=== PATIENT | male | born 1955 | race Caucasian/White ===

== ENCOUNTER 2016-03-03 17:28 | Emergency (ER) | payer OTHER ==
[2016-03-03 17:33] VITALS: BP 154/89; PULSE 90; TEMP 98; BMI 23.1
[2016-03-03] MEDS ORDERED: morphine CARPU-JECT 2 MG/1 ML DISP.SYRIN IM ONE (20:37)
[2016-03-03] MEDS ORDERED: CYCLOBENZAPRINE HCL 10 MG TABLET (FP) PO ONE (20:38)
[2016-03-03] MEDS ORDERED: morphine CARPU-JECT 2 MG/1 ML DISP.SYRIN ONE (20:51)
[2016-03-03] MEDS ORDERED: CYCLOBENZAPRINE HCL 10 MG TABLET (FP) ONE (20:51)
--- NOTE | 2016-03-03 22:29 | PDOC ---
History of Present Illness - General Chief Complaint: Injury Stated Complaint: BACK INJURY Time Seen by Provider: 03/03/16 19:27 History Source: Patient Exam Limitations: No Limitations - History of Present Illness Initial Comments: 03/03/16 22:12 Patient is a 60 year old male with h/o chronic back pain, kidney stones, pancreatic cysts, kidney cysts, seizures, inguinal hernia repair, removal of right inguinal node, complaining of coccyx pain 5 days. Patient states he was going up the steps lost his balance 5 days ago falling and hitting his back on the steps. States he's had 10/10 pain, however last night started having tingling in bilateral great toes. States he has no radiation of pain to his legs. No bladder or bowel incontinence. States he took some oxycodone that he had laying around the house with no relief of symptoms. PMD: Dr. Franco PMHx: As above PFamHx: Noncontributory PSocHx: (+) cig 1/day, neg etoh, neg drugs ALL: Diflucan, amoxicillin GENERAL/CONSTITUTIONAL: [No fever or chills. No weakness. No weight change.] HEAD, EYES, EARS, NOSE AND THROAT: [No change in vision. No ear pain or discharge. No sore throat.] CARDIOVASCULAR: [No chest pain or shortness of breath.] RESPIRATORY: [No cough, wheezing, or hemoptysis.] GASTROINTESTINAL: [No nausea, vomiting, diarrhea or constipation. No rectal bleeding.] GENITOURINARY: (+) kidney pain, No dysuria, frequency, or change in urination.] MUSCULOSKELETAL: (+) joint or muscle swelling or pain. Chronic neck and back pain.] SKIN AND BREASTS: [No rash or easy bruising.] NEUROLOGIC: [No headache, vertigo, loss of consciousness, or loss of sensation.] PSYCHIATRIC: [No depression or anxiety.] ENDOCRINE: [No increased thirst. No abnormal weight change.] HEMATOLOGIC/LYMPHATIC: [No anemia, easy bleeding, or history of blood clots.] ALLERGIC/IMMUNOLOGIC: [No hives or skin allergy. No latex allergy.] GENERAL: [The patient is awake, alert, and fully oriented, in no acute distress. ] HEAD: [Normal with no signs of trauma.] EYES: [Pupils equal, round and reactive to light, extraocular movements intact, sclera anicteric, conjunctiva clear.] ENT: [Ears normal, nares patent, oropharynx clear without exudates. Moist mucous membranes.] NECK: [Normal range of motion, supple without lymphadenopathy, JVD, or masses.] LUNGS: [Breath sounds equal, clear to auscultation bilaterally. No wheezes, and no crackles.] HEART: [Regular rate and rhythm, normal S1 and S2 without murmur, rub.] ABDOMEN: [Soft, nontender, normoactive bowel sounds. No guarding, no rebound. No masses.] BACK: (+) tenderness to the lower Lumbar spine midline and sacrum, EXTREMITIES: [Normal range of motion, no edema. No clubbing or cyanosis. No cords, erythema, or tenderness.] NEUROLOGICAL: [Cranial nerves II through XII grossly intact. Normal speech, anthalgic gait, (+) 5/5 right, 4/5 left (old CVA), Sensory intact] PSYCH: [Normal mood, normal affect.] SKIN: [Warm, Dry, normal turgor, no rashes or lesions noted.] Past History - Past Medical History Allergies/Adverse Reactions: Allergies Allergy/AdvReac Type Severity Reaction Status Date / Time fluconazole [From Diflucan] Allergy Severe anaphylaxis Verified 03/03/16 17:32 amoxicillin [Amoxicillin] Allergy Mild Rash Verified 03/03/16 17:32 Home Medications: Ambulatory Orders Atenolol [Tenormin -] 50 mg PO DAILY 10/14/14 Carisoprodol [Soma -] 350 mg PO PRN PRN 10/14/14 Diphenoxylate 2.5/Atropine.025 [Lomotil -] 1 combo PO TID 10/14/14 Divalproex [Depakote -] 2,000 mg PO BID 10/14/14 Levothyroxine [Synthroid -] 75 mcg PO DAILY 10/14/14 Zolpidem Tartrate [Ambien] 10 mg PO HS 01/02/16 Lacosamide [Vimpat -] 150 mg PO BID #60 tab MDD 300 01/03/16 Anemia: No Asthma: Yes Cancer: No Cardiac Disorders: No CVA: Yes (lt side residual weakness) COPD: Yes CHF: No Dementia: No Diabetes: No GI Disorders: (CYST ON PANCREAS) Disorders: Yes (LEFT KIDNEY CYST, stones) HTN: Yes Hypercholesterolemia: Yes HIV: No Kidney Stones: Yes Liver Disease: No Seizures: Yes Thyroid Disease: Yes (hypothyroidism) - Surgical History Abdominal Surgery: Yes (left inguinal hernia x 2) Appendectomy: No Cardiac Surgery: No Cholecystectomy: No Lung Surgery: No Neurologic Surgery: No Orthopedic Surgery: No - Immunization History Td Vaccination: Yes Immunization Up to Date: (FLU 2012 AND PNA) - Psycho/Social/Smoking Cessation Hx Anxiety: No Suicidal Ideation: No Smoking Status: Yes Smoking History: Current every day smoker Years of Tobacco Use: 30 Have you smoked in the past 12 months: Yes Number of Cigarettes Smoked Daily: 2 Information on smoking cessation initiated: No 'Breaking Loose' booklet given: 09/20/15 Hx Alcohol Use: No Drug/Substance Use Hx: No Substance Use Type: None Hx Substance Use Treatment: No Trauma Specific PMHX - Complaint Specific PMHX Back Injury: Yes Neck Injury: Yes *Physical Exam - Vital Signs Last Vital Signs Temp Pulse Resp BP Pulse Ox 98.0 F 90 20 154/89 100 03/03/16 17:29 03/03/16 17:29 03/03/16 17:29 03/03/16 17:29 03/03/16 17:29 ED Treatment Course - RADIOLOGY Radiology Studies Ordered: Category Date Time Status LUMBAR SPINE CT W/O CONTRAST [CT] Stat CT Scan 03/03/16 20:32 Taken - Medications Given in the ED: ED Medications Discontinued Medications Generic Name Dose Route Start Last Admin Trade Name Freq PRN Reason Stop Dose Admin Cyclobenzaprine HCl 10 mg 03/03/16 20:38 03/03/16 20:55 Flexeril - PO 03/03/16 20:39 10 mg ONCE ONE Administration Morphine Sulfate 2 mg 03/03/16 20:37 03/03/16 20:55 Morphine Injection - IM 03/03/16 20:38 2 mg ONCE ONE Administration Medical Decision Making - Medical Decision Making 03/03/16 22:30 Patient is a 60 year old male with h/o chronic back pain, kidney stones, pancreatic cysts, kidney cysts, seizures, inguinal hernia repair, removal of right inguinal node, complaining of coccyx pain 5 days. Concern for fracture of the lumbar spine will get ct l-spine, Morphine 4mg IM for pain Patient Name: Guillermo Wilks THIS IS A PRELIMINARY REPORT FROM [facility]: 353 EXAM DATE AND TIME: 2016-03-03 21:22:41.0 EXAM: CT LUMBAR SPINE WITHOUT CONTRAST No acute fracture or malalignment. No substantial canal stenosis. Minimal right neural foraminal stenosis L4-L5. Minimal right hydronephrosis. THIS DOCUMENT HAS BEEN ELECTRONICALLY SIGNED Lora Ramesh M.D. 03/03/2016 22:09 MISBAH John Please call [facility] [employer] Professor [phone] ([phone]) with questions. 03/03/16 22:44 I discussed the physical exam findings, ancillary test results and final diagnoses with the patient. I answered all of the patient's questions. The patient was satisfied with the care received and felt comfortable with the discharge plan and treatment plan. The Patient agrees to follow up with the primary care physician within 24-72 hours. *DC/Admit/Observation/Transfer Diagnosis at time of Disposition: Back pain Qualifiers: Back pain location: low back pain Chronicity: acute Back pain laterality: midline Sciatica presence: without sciatica Qualified Code(s): M54.5 - Low back pain - Discharge Dispostion Disposition: HOME Condition at time of disposition: Stable - Patient Instructions Printed Discharge Instructions: DI for Low Back Pain Additional Instructions: Your Discharge Instructions: You must call primary care physician within 24 hours to arrange follow-up. Return to the Emergency Department with any new, persistent or worsening symptoms, for fever, chills, SOB, dizziness or any other concerning changes that may occur. Sit on a doughnut, and continue pain medications as needed.
== END 2016-03-03 23:06 | disposition home or self-care (01) ==
LOC: JER 17:28
PROC: 3E023NZ Introduction of Analgesics, Hypnotics, Sedatives into Muscle, Percutaneous Approach (ICD-10-PCS; principal; 2016-03-03)
DX: M54.5 Low back pain (principal); I10 Essential (primary) hypertension; E78.00 Pure hypercholesterolemia, unspecified; E03.9 Hypothyroidism, unspecified; Z86.69 Personal history of other diseases of the nervous system and sense organs; I69.854 Hemiplegia and hemiparesis following other cerebrovascular disease affecting left non-dominant side; F17.210 Nicotine dependence, cigarettes, uncomplicated; J45.909 Unspecified asthma, uncomplicated; J44.9 Chronic obstructive pulmonary disease, unspecified
CPT/HCPCS: 72131-TC; 96372; 99282-25

== ENCOUNTER 2016-12-06 00:31 | Emergency (ER) | payer OTHER ==
--- NOTE | 2016-12-06 00:44 | PDOC ---
History of Present Illness - General Chief Complaint: Shortness of Breath Stated Complaint: DIFFICULTY BREATHING Time Seen by Provider: 12/06/16 00:43 History Source: Patient Exam Limitations: No Limitations - History of Present Illness Initial Comments: 12/06/16 01:09 61 yo with hx of COPD (stopped smoking 5 mo ago) also has seizure disorder persists with cough that wont go away despite two rounds of amoxicillin from his PMD. NAD, NONTOXIC, NO FEVER or CHILLS Timing/Duration: other (past month) Severity: mild Modifying Factors: improves with: other (nothing makes it worse or better) Associated Symptoms: reports: denies symptoms. denies: chest pain, cough, diaphoresis, fever/chills, headaches, loss of appetite, malaise, nausea/vomiting , rash, seizure, shortness of breath, syncope, weakness, other Past History - Travel Traveled outside of the country in the last 30 days: No Close contact w/someone who was outside of country & ill: No - Past Medical History Allergies/Adverse Reactions: Allergies Allergy/AdvReac Type Severity Reaction Status Date / Time fluconazole [From Diflucan] Allergy Severe anaphylaxis Verified 12/06/16 00:40 amoxicillin [Amoxicillin] Allergy Mild Rash Verified 12/06/16 00:40 Home Medications: Ambulatory Orders Atenolol [Tenormin -] 50 mg PO DAILY 10/14/14 Carisoprodol [Soma -] 350 mg PO PRN PRN 10/14/14 Diphenoxylate 2.5/Atropine.025 [Lomotil -] 1 combo PO TID 10/14/14 Divalproex [Depakote -] 2,000 mg PO BID 10/14/14 Levothyroxine [Synthroid -] 75 mcg PO DAILY 10/14/14 Zolpidem Tartrate [Ambien] 10 mg PO HS 01/02/16 Lacosamide [Vimpat -] 150 mg PO BID #60 tab MDD 300 01/03/16 Levofloxacin [Levaquin] 750 mg PO DAILY #10 tablet 12/06/16 Methylprednisolone [Medrol Dose Scott] 4 mg PO ASDIR #21 tablet 12/06/16 Ondansetron [Zofran Odt -] 4 mg SL TID #21 od.tablet 12/06/16 Promethazine/Phenyleph/Codeine [Promethazine Vc-Codeine Syrup] 10 ml PO QID # 200 syrup MDD 40 12/06/16 Anemia: No Asthma: Yes Cancer: No Cardiac Disorders: No CVA: Yes (lt side residual weakness) COPD: Yes CHF: No Dementia: No Diabetes: No GI Disorders: (CYST ON PANCREAS) Disorders: Yes (LEFT KIDNEY CYST, stones) HTN: Yes Hypercholesterolemia: Yes Kidney Stones: Yes Liver Disease: No Seizures: Yes Thyroid Disease: Yes (hypothyroidism) - Surgical History Abdominal Surgery: Yes (left inguinal hernia x 2) Appendectomy: No Cardiac Surgery: No Cholecystectomy: No Lung Surgery: No Neurologic Surgery: No Orthopedic Surgery: No - Immunization History Td Vaccination: Yes Immunization Up to Date: (FLU 2012 AND PNA) - Suicide/Smoking/Psychosocial Hx Smoking Status: Yes Smoking History: Current every day smoker Years of Tobacco Use: 30 Have you smoked in the past 12 months: Yes Number of Cigarettes Smoked Daily: 2 'Breaking Loose' booklet given: 09/20/15 Hx Alcohol Use: No Drug/Substance Use Hx: No Substance Use Type: None Hx Substance Use Treatment: No Review of Systems - Review of Systems Able to Perform ROS?: Yes Is the patient limited Nepali proficient: No Constitutional: No: Symptoms Reported HEENTM: No: Symptoms Reported Respiratory: Yes: Symptoms reported, See HPI Cardiac (ROS): No: Symptoms Reported ABD/GI: No: Symptoms Reported : No: Symptoms Reported Integumentary: No: Symptoms Reported Neurological: No: Symptoms reported Psychiatric: No: Anxiety, Depression Hematologic/Lymphatic: No: Symptoms Reported All Other Systems: Reviewed and Negative *Physical Exam - Physical Exam General Appearance: No: Apparent Distress HEENT: positive: Normal ENT Inspection, Normal Voice Neck: positive: Supple Respiratory/Chest: positive: Lungs Clear, Normal Breath Sounds, Wheezing, Other (Musical Wheezes upper lungs posteriorly only). negative: Respiratory Distress Gastrointestinal/Abdominal: positive: Normal Bowel Sounds, Flat, Soft Lymphatic: negative: Adenopathy, Tenderness Musculoskeletal: positive: Normal Inspection. negative: CVA Tenderness, Decreased Range of Motion, Muscle Spasm Extremity: positive: Normal Capillary Refill, Normal Inspection, Normal Range of Motion Integumentary: positive: Normal Color, Dry, Warm Neurologic: positive: anvilsmith II-XII NML intact, Fully Oriented, Alert, Normal Mood/ Affect *DC/Admit/Observation/Transfer Diagnosis at time of Disposition: COPD (chronic obstructive pulmonary disease) with acute bronchitis - Discharge Dispostion Disposition: HOME Condition at time of disposition: Improved Admit: No - Prescriptions Prescriptions: Levofloxacin [Levaquin] 750 mg PO DAILY #10 tablet Methylprednisolone [Medrol Dose Scott] 4 mg PO ASDIR #21 tablet Promethazine/Phenyleph/Codeine [Promethazine Vc-Codeine Syrup] 10 ml PO QID # 200 syrup MDD 40 Ondansetron [Zofran Odt -] 4 mg SL TID #21 od.tablet - Referrals Referrals: Austyn Franco MD [Primary Care Provider] -
[2016-12-06] MEDS ORDERED: ALBUTEROL SO4 0.083% IH SOL 2.5 MG/3 ML VIAL.NEB. NEB ONE ×2 (00:51→01:34)
[2016-12-06] MEDS ORDERED: methylPREDNISolone NA SUCC 125 MG/2 ML VIAL IVPUSH ONE (00:51)
[2016-12-06] MEDS ORDERED: CEFTRIAXONE 1 GM in DEXTROSE 5%-WATER - 50 ML IVPB ONE (00:51)
[2016-12-06] MEDS ORDERED: CODEINE SO4 30 MG TABLET PO ONE (00:51)
[2016-12-06] MEDS ORDERED: ALBUTEROL SO4 2.5/IPRATROPIUM 0.5 INH SOL 3 ML VIAL.NEB. NEB ONE ×2 (00:51→01:34)
[2016-12-06] MEDS ORDERED: AZITHROMYCIN IVPB 500 MG in DEXTROSE 5%-WATER - 250 ML IVPB ONE (00:51)
[2016-12-06 01:34] LABS: BASOPHIL 0.9 % (0-2.0); EOSINOPHIL 0.9 % (0-4.5); MCH 30.3 pg (25.7-33.7); MCHC 34.9 g/dl (32.0-35.9); MEAN CELL VOLUME 86.9 fl (80-96); MEAN PLT VOLUME 8.2 fl (7.5-11.1); NEUTROPHILS 44.4 % (42.8-82.8); PLATELET COUNT 264 K/MM3 (134-434); RDW 12.9 % (11.9-15.9)
[2016-12-06] MEDS ORDERED: CODEINE SO4 30 MG TABLET ONE (01:34)
[2016-12-06] MEDS ORDERED: CEFTRIAXONE 50 ML ONE ×2 (01:41→01:42)
[2016-12-06] MEDS ORDERED: methylPREDNISolone NA SUCC 125 MG/2 ML VIAL ONE (01:41)
[2016-12-06 01:42] VITALS: BP 142/75; PULSE 79; TEMP 98.7; BMI 25.5
[2016-12-06 01:47] LABS: INR 0.93 (0.82-1.09); PROTHROMBIN TIME (PATIENT) 10.5 SEC (9.98-11.88)
[2016-12-06 01:58] LABS: ALBUMIN 3.6 g/dl (3.4-5.0); ANION GAP 10 (8-16); BILIRUBIN,TOTAL 0.1 mg/dL (0.2-1.0); CALCIUM 8.6 mg/dL (8.5-10.1); CO2 28 mmol/L (21-32); CREATININE 0.8 mg/dL (0.7-1.3); GLUCOSE,RANDOM 92 mg/dL (74-106); SGOT/AST 10 U/L (15-37); SGPT/ALT 18 U/L (12-78); TOT PROT 6.8 g/dl (6.4-8.2)
[2016-12-06 02:01] LABS: ALK PHOS 73 U/L (45-117); CPK 79 IU/L (39-308); TROPONIN I < 0.02 ng/ml (0.00-0.05)
[2016-12-06] MEDS ORDERED: AZITHROMYCIN IVPB 250 ML IVPB ONE (02:08)
--- NOTE | 2016-12-06 09:42 | EKG ---
Test Reason : Blood Pressure : / mmHG Vent. Rate : 079 BPM Atrial Rate : 079 BPM P-R Int : 134 ms QRS Dur : 094 ms QT Int : 358 ms P-R-T Axes : 053 056 088 degrees QTc Int : 410 ms NORMAL SINUS RHYTHM NONSPECIFIC ST AND T WAVE ABNORMALITY ABNORMAL ECG WHEN COMPARED WITH ECG OF 02-JAN-2016 11:10, NO SIGNIFICANT CHANGE WAS FOUND Confirmed by BRANDEN SUBRAMANIAN MD ([id number]) on 12/06/2016 9:42:27 AM Referred By: Confirmed By:BRANDEN SUBRAMANIAN MD
== END 2016-12-06 02:55 | disposition home or self-care (01) ==
LOC: JER 00:31
PROC: 3E0F7GC Introduction of Other Therapeutic Substance into Respiratory Tract, Via Natural or Artificial Opening (ICD-10-PCS; principal; 2016-12-06)
PROC: 3E0F7GC Introduction of Other Therapeutic Substance into Respiratory Tract, Via Natural or Artificial Opening (ICD-10-PCS; 2016-12-06)
PROC: 3E03329 Introduction of Other Anti-infective into Peripheral Vein, Percutaneous Approach (ICD-10-PCS; 2016-12-06)
PROC: 3E0333Z Introduction of Anti-inflammatory into Peripheral Vein, Percutaneous Approach (ICD-10-PCS; 2016-12-06)
DX: J44.1 Chronic obstructive pulmonary disease with (acute) exacerbation (principal); J45.998 Other asthma; F17.210 Nicotine dependence, cigarettes, uncomplicated; E03.9 Hypothyroidism, unspecified; I10 Essential (primary) hypertension; Z86.69 Personal history of other diseases of the nervous system and sense organs; I69.854 Hemiplegia and hemiparesis following other cerebrovascular disease affecting left non-dominant side; Z87.442 Personal history of urinary calculi
CPT/HCPCS: 36415; 71010-TC; 80053; 82550; 84484; 85025; 85610; 93005; 93010; 94640; 96365; 96374; 99281-25

== ENCOUNTER 2017-03-14 00:23 | Emergency (ER) | payer OTHER ==
[2017-03-14 02:03] VITALS: BP 126/67; PULSE 88; TEMP 98.2; BMI 58.5
[2017-03-14] MEDS ORDERED: methylPREDNISolone NA SUCC 125 MG/2 ML VIAL IVPB ONE (02:47)
[2017-03-14] MEDS ORDERED: ALBUTEROL SO4 0.083% IH SOL 2.5 MG/3 ML VIAL.NEB. NEB PRN (02:47)
--- NOTE | 2017-03-14 02:53 | PDOC ---
History of Present Illness - General Chief Complaint: Respiratory Stated Complaint: DIFFICULTY BREATHING Time Seen by Provider: 03/14/17 02:20 History Source: Patient - History of Present Illness Initial Comments: 03/14/17 02:48 61 year old male with history of COPD, HTN, hypothyroidism c/o cough and chest congestion x 2 weeks. s/p amoxicillin with no improvement in symptoms. patient send by PMD yesterday to the ED for evaluation, patient denies NVD, Abdominal pain, fever. reports occasional chills. denies chest pain, SOB, dizziness, headache, weakness. 03/14/17 03:38 03/14/17 04:12 03/14/17 05:36 Past History - Past Medical History Allergies/Adverse Reactions: Allergies Allergy/AdvReac Type Severity Reaction Status Date / Time fluconazole [From Diflucan] Allergy Severe anaphylaxis Verified 03/14/17 02:28 amoxicillin [Amoxicillin] Allergy Mild Rash Verified 03/14/17 02:28 Home Medications: Ambulatory Orders Atenolol [Tenormin -] 50 mg PO DAILY 10/14/14 Carisoprodol [Soma -] 350 mg PO PRN PRN 10/14/14 Diphenoxylate 2.5/Atropine.025 [Lomotil -] 1 combo PO TID 10/14/14 Divalproex [Depakote -] 2,000 mg PO BID 10/14/14 Levothyroxine [Synthroid -] 75 mcg PO DAILY 10/14/14 Zolpidem Tartrate [Ambien] 10 mg PO HS 01/02/16 Lacosamide [Vimpat -] 150 mg PO BID #60 tab MDD 300 01/03/16 Guaifenesin AC [Robitussin AC] 10 ml PO Q8H PRN #100 ml MDD 30 12/06/16 Levofloxacin [Levaquin] 750 mg PO DAILY #10 tablet 12/06/16 Methylprednisolone [Medrol Dose Scott] 4 mg PO ASDIR #21 tablet 12/06/16 Ondansetron [Zofran Odt -] 4 mg SL TID #21 od.tablet 12/06/16 Promethazine/Phenyleph/Codeine [Promethazine Vc-Codeine Syrup] 10 ml PO QID # 200 syrup MDD 40 12/06/16 Azithromycin [Zithromax 250mg Tablets -] 250 mg PO UTDICT #6 tab 03/14/17 Prednisone [Deltasone -] 40 mg PO DAILY #10 tablet 03/14/17 Anemia: No Asthma: Yes Cancer: No Cardiac Disorders: No CVA: Yes (lt side residual weakness) COPD: Yes CHF: No Dementia: No Diabetes: No GI Disorders: (CYST ON PANCREAS) Disorders: Yes (LEFT KIDNEY CYST, stones) HTN: Yes Hypercholesterolemia: Yes Kidney Stones: Yes Liver Disease: No Seizures: Yes Thyroid Disease: Yes (hypothyroidism) - Surgical History Abdominal Surgery: Yes (left inguinal hernia x 2) Appendectomy: No Cardiac Surgery: No Cholecystectomy: No Lung Surgery: No Neurologic Surgery: No Orthopedic Surgery: No - Immunization History Td Vaccination: Yes Immunization Up to Date: (FLU 2012 AND PNA) - Suicide/Smoking/Psychosocial Hx Smoking Status: Yes Smoking History: Never smoked Years of Tobacco Use: 30 Have you smoked in the past 12 months: No Number of Cigarettes Smoked Daily: 2 Information on smoking cessation initiated: No 'Breaking Loose' booklet given: 09/20/15 Hx Alcohol Use: No Drug/Substance Use Hx: No Substance Use Type: None Hx Substance Use Treatment: No Review of Systems - Review of Systems Able to Perform ROS?: Yes Is the patient limited Irish proficient: No HEENTM: No: Symptoms Reported, See HPI, Eye Pain, Blurred Vision, Tearing, Recent change in vision, Double Vision, Cataracts, Ear Pain, Ocular Prothesis, Ear Discharge, Nose Pain, Nose Congestion, Tinnitus, Nose Bleeding, Hearing Loss , Throat Pain, Throat Swelling, Mouth Pain, Dental Problems, Difficulty Swallowing, Mouth Swelling, Other Respiratory: Yes: Cough, Productive cough *Physical Exam - Vital Signs Last Vital Signs Temp Pulse Resp BP Pulse Ox 98.2 F 88 18 126/67 100 03/14/17 02:00 03/14/17 02:00 03/14/17 02:00 03/14/17 02:00 03/14/17 02:00 - Physical Exam General Appearance: Yes: Appropriately Dressed Respiratory/Chest: positive: Other (coarse breath sounds) Gastrointestinal/Abdominal: positive: Normal Bowel Sounds, Soft Extremity: positive: Normal Capillary Refill, Normal Inspection, Normal Range of Motion Integumentary: positive: Normal Color, Dry, Warm Neurologic: positive: Fully Oriented, Alert, Normal Mood/Affect Heart Score/ECG Review - ECG Intrepretation Rhythm: Regular Rhythm Comment:: 03/14/17 06:30 NSR: 83 bpm ED Treatment Course - LABORATORY CBC & Chemistry Diagram: 03/14/17 03:09 03/14/17 03:09 Progress Note - Progress Note Progress Note: A: bronchitis P: cbc cmp cardiac enzymes bnp duoneb solumedrol Medical Decision Making - Medical Decision Making 03/14/17 06:30 Patient reports feeling better after neb treatment will d/c home. strict return precautions reviewed with patient *DC/Admit/Observation/Transfer Diagnosis at time of Disposition: Bronchitis - Discharge Dispostion Disposition: HOME - Prescriptions Prescriptions: Azithromycin [Zithromax 250mg Tablets -] 250 mg PO UTDICT #6 tab Prednisone [Deltasone -] 40 mg PO DAILY #10 tablet - Referrals Referrals: Austyn Franco MD [Primary Care Provider] - - Patient Instructions Printed Discharge Instructions: DI for Acute Bronchitis Additional Instructions: take albuterol every 6 hours as needed for cough. take prednisone and azithromycin as prescribed. follow up wiht your doctor as soon as possible. return to the ED if symptoms worsen. - Post Discharge Activity
[2017-03-14] MEDS ORDERED: methylPREDNISolone NA SUCC 125 MG/2 ML VIAL ONE (03:08)
--- NOTE | 2017-03-14 03:09 | PDOC ---
*Physical Exam - Vital Signs Last Vital Signs Temp Pulse Resp BP Pulse Ox 98.2 F 88 18 126/67 100 03/14/17 02:00 03/14/17 02:00 03/14/17 02:00 03/14/17 02:00 03/14/17 02:00 Medical Decision Making - Medical Decision Making 03/14/17 03:09 agree with care from JOSE ROBERTO Li *DC/Admit/Observation/Transfer - Referrals Referrals: Austyn Franco MD [Primary Care Provider] - - Patient Instructions - Post Discharge Activity
[2017-03-14 03:48] LABS: BASO % 0.8 % (0-2.0); EOS % 1.9 % (0-4.5); HEMATOCRIT 39.8 % (35.4-49); HEMOGLOBIN 13.6 GM/dL (11.7-16.9); LYMPH % 55.7 % (8-40); MCH 30.2 pg (25.7-33.7); MCHC 34.1 g/dl (32.0-35.9); MEAN CELL VOLUME 88.8 fl (80-96); MEAN PLT VOLUME 8.5 fl (7.5-11.1); MONO % 8.2 % (3.8-10.2); NEUT % 33.4 % (42.8-82.8); PLATELET COUNT 239 K/MM3 (134-434); RBC 4.48 M/mm3 (4.00-5.60); RDW 13.8 % (11.9-15.9); WHITE BLOOD COUNT 5.3 K/mm3 (4.0-10.0)
[2017-03-14 04:17] LABS: ALBUMIN 3.3 g/dl (3.4-5.0); ALK PHOS 66 U/L (45-117); ANION GAP 5 (8-16); BILIRUBIN,TOTAL 0.2 mg/dL (0.2-1.0); BLOOD UREA NITROGEN 21 mg/dL (7-18); CALCIUM 7.8 mg/dL (8.5-10.1); CHLORIDE 107 mmol/L (98-107); CO2 29 mmol/L (21-32); CREATININE 0.7 mg/dL (0.7-1.3); GLUCOSE,RANDOM 110 mg/dL (74-106); SGOT/AST 17 U/L (15-37); SGPT/ALT 19 U/L (12-78); SODIUM 141 mmol/L (136-145); TOT PROT 6.5 g/dl (6.4-8.2)
--- NOTE | 2017-03-14 09:21 | EKG ---
Test Reason : Blood Pressure : / mmHG Vent. Rate : 083 BPM Atrial Rate : 083 BPM P-R Int : 144 ms QRS Dur : 096 ms QT Int : 380 ms P-R-T Axes : 054 036 079 degrees QTc Int : 446 ms NORMAL SINUS RHYTHM INCOMPLETE RIGHT BUNDLE BRANCH BLOCK WHEN COMPARED WITH ECG OF 06-DEC-2016 00:45, NO SIGNIFICANT CHANGE WAS FOUND Confirmed by BRANDEN SUBRAMANIAN MD ([id number]) on 03/14/2017 9:21:22 AM Referred By: Confirmed By:BRANDEN SUBRAMANIAN MD
== END 2017-03-14 07:03 | disposition home or self-care (01) ==
LOC: JER 00:23
PROC: 3E0F7GC Introduction of Other Therapeutic Substance into Respiratory Tract, Via Natural or Artificial Opening (ICD-10-PCS; principal; 2017-03-14)
PROC: 3E033GC Introduction of Other Therapeutic Substance into Peripheral Vein, Percutaneous Approach (ICD-10-PCS; 2017-03-14)
DX: J40 Bronchitis, not specified as acute or chronic (principal); J44.9 Chronic obstructive pulmonary disease, unspecified; I10 Essential (primary) hypertension; E03.9 Hypothyroidism, unspecified
CPT/HCPCS: 36415; 71046-TC; 80053; 85025; 87804; 93005; 93010; 94640; 96374; 99282-25

== ENCOUNTER 2017-07-16 12:40 | Emergency (ER) | payer OTHER ==
[2017-07-16 12:54] VITALS: BP 123/84; PULSE 74; TEMP 98.5; BMI 23.3
[2017-07-16] MEDS ORDERED: DEXAMETHASONE LIQUID 0.5 MG/5 ML 240 ML BULK BOTTLE PO ONE (13:06)
--- NOTE | 2017-07-16 13:13 | PDOC ---
History of Present Illness - General Chief Complaint: Cold Symptoms Stated Complaint: SOB Time Seen by Provider: 07/16/17 13:01 - History of Present Illness Initial Comments: 61-year-old male with past medical history significant for hypertension presents for evaluation of cough 6 days. His cough is nonproductive. He complains of sinus pressure and unproductive cough without associated symptoms. 07/16/17 13:09 Past History - Past Medical History Allergies/Adverse Reactions: Allergies Allergy/AdvReac Type Severity Reaction Status Date / Time fluconazole [From Diflucan] Allergy Severe anaphylaxis Verified 07/16/17 12:48 amoxicillin [Amoxicillin] Allergy Mild Rash Verified 07/16/17 12:48 Home Medications: Ambulatory Orders Atenolol [Tenormin -] 50 mg PO DAILY 10/14/14 Diphenoxylate 2.5/Atropine.025 [Lomotil -] 1 combo PO TID 10/14/14 Divalproex [Depakote -] 2,000 mg PO BID 10/14/14 Zolpidem Tartrate [Ambien] 10 mg PO HS 01/02/16 Lacosamide [Vimpat -] 150 mg PO BID #60 tab MDD 300 01/03/16 Albuterol Sulfate Inhaler - [Ventolin HFA Inhaler -] 1 - 2 inh PO Q4H #1 inhaler 07/16/17 Guaifenesin [Robitussin] 5 ml PO HS #30 ml 07/16/17 Levothyroxine [Synthroid -] 75 mcg PO DAILY 07/16/17 Mirtazapine [Remeron -] 30 mg PO DAILY 07/16/17 levoFLOXacin [Levaquin] 750 mg PO DAILY 5 Days #5 tab 07/16/17 Anemia: No Asthma: Yes Cancer: No Cardiac Disorders: No CVA: Yes (lt side residual weakness) COPD: Yes CHF: No Dementia: No Diabetes: No GI Disorders: (CYST ON PANCREAS) Disorders: Yes (LEFT KIDNEY CYST, stones) HTN: Yes Hypercholesterolemia: Yes Kidney Stones: Yes Liver Disease: No Seizures: Yes Thyroid Disease: Yes (hypothyroidism) - Surgical History Abdominal Surgery: Yes (left inguinal hernia x 2) Appendectomy: No Cardiac Surgery: No Cholecystectomy: No Lung Surgery: No Neurologic Surgery: No Orthopedic Surgery: No - Immunization History Td Vaccination: Yes Immunization Up to Date: (FLU 2012 AND PNA) - Suicide/Smoking/Psychosocial Hx Smoking Status: Yes Smoking History: Former smoker Years of Tobacco Use: 30 Have you smoked in the past 12 months: Yes Number of Cigarettes Smoked Daily: 0 If you are a former smoker, when did you quit?: 04/2017 Information on smoking cessation initiated: No 'Breaking Loose' booklet given: 04/30/17 Hx Alcohol Use: No Drug/Substance Use Hx: No Substance Use Type: None Hx Substance Use Treatment: No Review of Systems - Review of Systems Constitutional: Yes: Malaise. No: Chills, Diaphoresis, Fever, Night Sweats HEENTM: Yes: See HPI Respiratory: Yes: Cough, Wheezing. No: Orthopnea, Shortness of Breath, Productive cough Cardiac (ROS): No: Chest Pain ABD/GI: Yes: See HPI : Yes: See HPI All Other Systems: Reviewed and Negative *Physical Exam - Vital Signs Last Vital Signs Temp Pulse Resp BP Pulse Ox 98.5 F 74 20 123/84 97 07/16/17 12:49 07/16/17 12:49 07/16/17 12:49 07/16/17 12:49 07/16/17 12:49 - Physical Exam Comments: 07/16/17 13:11 GENERAL: The patient is awake, alert, and fully oriented, in no acute distress. HEAD: Normal with no signs of trauma. EYES: Pupils equal, round and reactive to light, extraocular movements intact, sclera anicteric, conjunctiva clear. ENT: Ears normal, nares patent, oropharynx clear without exudates. Moist mucous membranes. NECK: Normal range of motion, supple without lymphadenopathy, JVD, or masses. LUNGS: Diffuse wheezing and ronchi. HEART: Regular rate and rhythm, normal S1 and S2 without murmur, rub or gallop. ABDOMEN: Soft, nontender, normoactive bowel sounds. No guarding, no rebound. No masses. EXTREMITIES: Normal range of motion, no edema. No clubbing or cyanosis. No cords, erythema, or tenderness. NEUROLOGICAL: Cranial nerves II through XII grossly intact. Normal speech, normal gait. PSYCH: Normal mood, normal affect. SKIN: Warm, Dry, normal turgor, no rashes or lesions noted. Medical Decision Making - Medical Decision Making 50 to do her nebs he is still wheezing a little bit he will require more treatment. Of note is x-rays clear. 07/16/17 14:44 07/16/17 15:05 His breathing is much improved after the fourth DuoNeb treatment. He has no wheezing on reexamination. I'll discharge him with a diagnosis of asthmatic bronchitis he can follow-up with his primary care physician all treat him with Levaquin and Ventolin if needed. I will also give him a cough syrup *DC/Admit/Observation/Transfer Diagnosis at time of Disposition: Asthmatic bronchitis - Discharge Dispostion Disposition: HOME Condition at time of disposition: Stable Decision to Admit order: No - Prescriptions Prescriptions: Albuterol Sulfate Inhaler - [Ventolin HFA Inhaler -] 1 - 2 inh PO Q4H #1 inhaler levoFLOXacin [Levaquin] 750 mg PO DAILY 5 Days #5 tab - Referrals Referrals: Aguila Fairbanks MD [Staff Physician] - - Patient Instructions Printed Discharge Instructions: DI for Acute Bronchitis, DI for Asthma -- Adult Additional Instructions: Please return to the emergency room if your symptoms worsen or go unresolved prior to follow-up. If you have a primary care physician he can follow up with them. I've also recommended a local doctor to follow-up with who is a primary care physician. I've given you a 5 day course of Levaquin for bronchitis. Cough syrup that I prescribed should help with your nighttime cough. And it inhaler as needed. - Post Discharge Activity
[2017-07-16] MEDS ORDERED: DEXAMETHASONE SOD PHOSPHATE 10 MG/1 ML VIAL ONE (13:26)
[2017-07-16] MEDS ORDERED: ALBUTEROL SO4 2.5/IPRATROPIUM 0.5 INH SOL 3 ML VIAL.NEB. NEB ONE (13:26)
[2017-07-16] MEDS: ALBUTEROL SO4 2.5/IPRATROPIUM 0.5 INH SOL 3 ML VIAL.NEB. NEB SCH ×2 (13:31→14:03)
== END 2017-07-16 15:13 | disposition home or self-care (01) ==
LOC: JER 12:40 → JERFT 12:40
PROC: 3E0F7GC Introduction of Other Therapeutic Substance into Respiratory Tract, Via Natural or Artificial Opening (ICD-10-PCS; principal; 2017-07-16)
DX: J45.909 Unspecified asthma, uncomplicated (principal); Z87.891 Personal history of nicotine dependence; I10 Essential (primary) hypertension; E78.00 Pure hypercholesterolemia, unspecified; Z87.442 Personal history of urinary calculi; E03.9 Hypothyroidism, unspecified
CPT/HCPCS: 71045-TC-FY; 94640; 99281-25; J7620

== ENCOUNTER 2017-08-07 12:59 | Emergency (ER) | payer OTHER ==
[2017-08-07 13:14] VITALS: BP 135/82; PULSE 71; TEMP 98.1; BMI 22.8
--- NOTE | 2017-08-07 13:52 | PDOC ---
History of Present Illness - General Chief Complaint: Injury Stated Complaint: LT HAND INJURY Time Seen by Provider: 08/07/17 13:21 History Source: Patient Exam Limitations: No Limitations - History of Present Illness Initial Comments: 08/07/17 13:45 61 yr male with c/o pain to the left hand between the second and third MCP denies trauma neg nvd neg redness, mild swelling noted to the soft tissue between the third and second mcp Past History - Past Medical History Allergies/Adverse Reactions: Allergies Allergy/AdvReac Type Severity Reaction Status Date / Time fluconazole [From Diflucan] Allergy Severe anaphylaxis Verified 08/07/17 13:13 Home Medications: Ambulatory Orders Atenolol [Tenormin -] 50 mg PO DAILY 10/14/14 Diphenoxylate 2.5/Atropine.025 [Lomotil -] 1 combo PO TID 10/14/14 Divalproex [Depakote -] 2,000 mg PO BID 10/14/14 Zolpidem Tartrate [Ambien] 10 mg PO HS 01/02/16 Lacosamide [Vimpat -] 150 mg PO BID #60 tab MDD 300 01/03/16 Albuterol Sulfate Inhaler - [Ventolin HFA Inhaler -] 1 - 2 inh PO Q4H #1 inhaler 07/16/17 Guaifenesin [Robitussin] 5 ml PO HS #30 ml 07/16/17 Levothyroxine [Synthroid -] 75 mcg PO DAILY 07/16/17 Mirtazapine [Remeron -] 30 mg PO DAILY 07/16/17 levoFLOXacin [Levaquin] 750 mg PO DAILY 5 Days #5 tab 07/16/17 Naproxen [Naprosyn] 500 mg PO BID PRN #30 tablet 08/07/17 Anemia: No Asthma: Yes Cancer: No Cardiac Disorders: No CVA: Yes (lt side residual weakness) COPD: Yes CHF: No Dementia: No Diabetes: No GI Disorders: (CYST ON PANCREAS) Disorders: Yes (LEFT KIDNEY CYST, stones) HTN: Yes Hypercholesterolemia: Yes Kidney Stones: Yes Liver Disease: No Seizures: Yes Thyroid Disease: Yes (hypothyroidism) - Surgical History Abdominal Surgery: Yes (left inguinal hernia x 2) Appendectomy: No Cardiac Surgery: No Cholecystectomy: No Lung Surgery: No Neurologic Surgery: No Orthopedic Surgery: No - Immunization History Td Vaccination: Yes Immunization Up to Date: (FLU 2012 AND PNA) - Suicide/Smoking/Psychosocial Hx Smoking Status: Yes Smoking History: Former smoker Years of Tobacco Use: 30 Have you smoked in the past 12 months: No Number of Cigarettes Smoked Daily: 2 Information on smoking cessation initiated: No 'Breaking Loose' booklet given: 09/20/15 Hx Alcohol Use: No Drug/Substance Use Hx: No Substance Use Type: None Hx Substance Use Treatment: No *Physical Exam - Vital Signs Last Vital Signs Temp Pulse Resp BP Pulse Ox 98.1 F 71 18 135/82 100 08/07/17 13:10 08/07/17 13:10 08/07/17 13:10 08/07/17 13:10 08/07/17 13:10 - Physical Exam General Appearance: Yes: Nourished, Appropriately Dressed HEENT: positive: EOMI, RITU Musculoskeletal: positive: Normal Inspection Extremity: positive: Normal Capillary Refill, Tender (over the left second and third MCP space , no deformity, mild swelling to the soft tissues, FROM nv intact no weakness or numbness ) Integumentary: positive: Normal Color, Dry, Warm Neurologic: positive: Fully Oriented, Alert, Normal Mood/Affect, Normal Response , Motor Strength 5/5 ED Treatment Course - RADIOLOGY Radiology Studies Ordered: Category Date Time Status HAND- LEFT [RAD] Stat Radiology 08/07/17 13:34 Ordered Medical Decision Making - Medical Decision Making 08/07/17 13:48 cc: hand pain denies trauma no fever will get xray to r/o fracture *DC/Admit/Observation/Transfer Diagnosis at time of Disposition: Hand pain, left - Discharge Dispostion Disposition: HOME Condition at time of disposition: Good - Prescriptions Prescriptions: Naproxen [Naprosyn] 500 mg PO BID PRN #30 tablet PRN Reason: Pain - Referrals Referrals: Laci Castro MD [Staff Physician] - - Patient Instructions Additional Instructions: follow with the orthopedist for follow up please take naprosyn for pain as needed - Post Discharge Activity
== END 2017-08-07 14:30 | disposition home or self-care (01) ==
LOC: JERFT 12:59
DX: M79.642 Pain in left hand (principal); J44.9 Chronic obstructive pulmonary disease, unspecified; J45.909 Unspecified asthma, uncomplicated; I10 Essential (primary) hypertension; E78.00 Pure hypercholesterolemia, unspecified; E03.9 Hypothyroidism, unspecified; Z87.891 Personal history of nicotine dependence; I69.854 Hemiplegia and hemiparesis following other cerebrovascular disease affecting left non-dominant side
CPT/HCPCS: 73130-TC-LR-FY; 99281-25

== ENCOUNTER 2018-02-25 01:24 | Inpatient (IN) | payer OTHER ==
--- NOTE | 2018-02-25 02:37 | PDOC ---
History of Present Illness - General Chief Complaint: Cold Symptoms Stated Complaint: DIFFICULTY BREATHING Time Seen by Provider: 02/25/18 02:29 History Source: Patient - History of Present Illness Initial Comments: 02/25/18 05:14 62-yearOld male complaining of cough and difficulty breathing for the last several days unable to sleep at night. Patient reports that she started with a cough on February 16 which persisted with fever. Patient was seen in [facility] urgent care was prescribed methylprednisone and Augmentin. Patient reports no improvement in the cough denies fevers/chills/nausea, vomiting Past medical History as listed Former smoker quit 5 months ago Patient also reports that he hasn't taken his thyroid medication for the last 2 weeks Past History - Past Medical History Allergies/Adverse Reactions: Allergies Allergy/AdvReac Type Severity Reaction Status Date / Time fluconazole [From Diflucan] Allergy Severe anaphylaxis Verified 02/25/18 02:21 Home Medications: Ambulatory Orders Atenolol [Tenormin -] 50 mg PO DAILY 10/14/14 Divalproex [Depakote -] 2,000 mg PO BID 10/14/14 Zolpidem Tartrate [Ambien] 10 mg PO HS 01/02/16 Lacosamide [Vimpat -] 150 mg PO BID #60 tab MDD 300 01/03/16 Albuterol Sulfate Inhaler - [Ventolin HFA Inhaler -] 1 - 2 inh PO Q4H #1 inhaler 07/16/17 Levothyroxine [Synthroid -] 75 mcg PO DAILY 07/16/17 Mirtazapine [Remeron -] 30 mg PO DAILY 07/16/17 Amoxicillin/Potassium Clav [Augmentin 875-125 Tablet] 1 each PO BID 02/25/18 Carisoprodol [Soma] 350 mg PO BID PRN 02/25/18 Hydrocodone/Acetaminophen [Hydrocodon-Acetaminoph 7.5-325] 1 each PO Q6H PRN 11/05 Anemia: No Asthma: Yes Cancer: No Cardiac Disorders: No CVA: Yes (lt side residual weakness) COPD: Yes CHF: No Dementia: No Diabetes: No GI Disorders: (CYST ON PANCREAS) Disorders: Yes (LEFT KIDNEY CYST, stones) HTN: Yes Hypercholesterolemia: Yes Kidney Stones: Yes Liver Disease: No Seizures: Yes Thyroid Disease: Yes (hypothyroidism) - Surgical History Abdominal Surgery: Yes (left inguinal hernia x 2) Appendectomy: No Cardiac Surgery: No Cholecystectomy: No Lung Surgery: No Neurologic Surgery: No Orthopedic Surgery: No - Immunization History Td Vaccination: Yes Immunization Up to Date: (FLU 2012 AND PNA) - Suicide/Smoking/Psychosocial Hx Smoking Status: Yes Smoking History: Former smoker Years of Tobacco Use: 30 Have you smoked in the past 12 months: No Number of Cigarettes Smoked Daily: 2 If you are a former smoker, when did you quit?: 04/2017 Information on smoking cessation initiated: No 'Breaking Loose' booklet given: 09/20/15 Hx Alcohol Use: No Drug/Substance Use Hx: No Substance Use Type: None Hx Substance Use Treatment: No Review of Systems - Review of Systems Able to Perform ROS?: Yes Is the patient limited French proficient: No Constitutional: Yes: Chills, Fever Respiratory: Yes: Cough, Shortness of Breath, Wheezing Cardiac (ROS): No: Symptoms Reported, See HPI, Chest Pain, Edema, Irregular Heart Rate, Lightheadedness, Palpitations, Syncope, Chest Tightness, Other ABD/GI: No: Symptoms Reported, See HPI, Abdominal Distended, Abd. Pain w/ defecation, Blood Streaked Bowels, Constipated, Diarrhea, Difficulty Swallowing , Nausea, Poor Appetite, Poor Fluid Intake, Rectal Bleeding, Vomiting, Indigestion, Abdominal cramping, Tarry Stools, Other : No: Symptoms Reported, See HPI, Burning, Dysuria, Discharge, Frequency, Flank Pain, Hematuria, Incontinence, Pain, Urgency, Testicular Mass, Testicular Swelling, Lesions, Testicular Pain, Other *Physical Exam - Vital Signs Last Vital Signs Temp Pulse Resp BP Pulse Ox 98.3 F 83 18 126/75 96 02/25/18 01:24 02/25/18 01:24 02/25/18 01:24 02/25/18 01:24 02/25/18 01:24 - Physical Exam General Appearance: Yes: Moderate Distress Neck: positive: Thyromegaly. negative: Normal Thyroid Respiratory/Chest: positive: Decreased Breath Sounds, Wheezing Cardiovascular: positive: Regular Rate Gastrointestinal/Abdominal: positive: Normal Bowel Sounds, Soft. negative: Tender Integumentary: positive: Normal Color, Dry, Warm Neurologic: positive: Fully Oriented, Alert, Normal Mood/Affect Moderate Sedation - Procedure Monitoring Vital Signs: Procedure Monitoring Vital Signs Temperature 98.3 F 02/25/18 01:24 Pulse Rate 83 02/25/18 01:24 Respiratory Rate 18 02/25/18 01:24 Blood Pressure 126/75 02/25/18 01:24 O2 Sat by Pulse Oximetry (%) 96 02/25/18 01:24 Heart Score/ECG Review - ECG Intrepretation Rhythm: Regular Rhythm Comment:: 02/25/18 05:19 Normal sinus rhythm: [address] abnormality QTc: 382/451 ms ED Treatment Course - LABORATORY CBC & Chemistry Diagram: 02/25/18 03:00 02/25/18 04:41 Medical Decision Making - Medical Decision Making 02/25/18 06:06 persistent wheezing and coughing improved since magnesium sulfate infusion. improved after magnesium 02/25/18 06:13 02/25/18 06:14 ABG and Influenza pending. Chest ct ordered. patient signed out to hospitalist team Dr. edgar. 02/25/18 06:28 *DC/Admit/Observation/Transfer Diagnosis at time of Disposition: COPD (chronic obstructive pulmonary disease) with acute bronchitis Asthmatic bronchitis Qualifiers: Asthma severity: moderate Asthma persistence: persistent Asthma complication type: with acute exacerbation Qualified Code(s): J45.41 - Moderate persistent asthma with (acute) exacerbation - Discharge Dispostion Condition at time of disposition: Fair Decision to Admit order: Yes - Referrals Referrals: Dominguez Olguin MD [Primary Care Provider] - - Patient Instructions - Post Discharge Activity
[2018-02-25] MEDS ORDERED: methylPREDNISolone NA SUCC 125 MG/2 ML VIAL IVPB ONE (02:47)
[2018-02-25] MEDS ORDERED: SODIUM CHLORIDE 1,000 ML IV STA (02:48)
[2018-02-25] MEDS: ALBUTEROL SO4 2.5/IPRATROPIUM 0.5 INH SOL 3 ML VIAL.NEB. NEB SCH ×7 (03:00→20:01)
[2018-02-25 03:45] LABS: BASO % 0.3 % (0-2.0); HEMATOCRIT 37.5 % (35.4-49); HEMOGLOBIN 13.4 GM/dL (11.7-16.9); LYMPH % 22.5 % (8-40); MCHC 35.7 g/dl (32.0-35.9); MEAN CELL VOLUME 89.6 fl (80-96); MEAN PLT VOLUME 8.2 fl (7.5-11.1); MONO % 11.2 % (3.8-10.2); PLATELET COUNT 514 K/MM3 (134-434); RBC 4.19 M/mm3 (4.00-5.60); RDW 14.3 % (11.9-15.9); WHITE BLOOD COUNT 6.9 K/mm3 (4.0-10.0)
[2018-02-25] MEDS ORDERED: ALBUTEROL SO4 0.083% IH SOL 2.5 MG/3 ML VIAL.NEB. NEB ONE (05:10)
[2018-02-25 05:35] LABS: ALK PHOS 65 U/L (45-117); ANION GAP 8 MMOL/L (8-16); BILIRUBIN,TOTAL 0.2 mg/dL (0.2-1); BLOOD UREA NITROGEN 28 mg/dL (7-18); CALCIUM 8.4 mg/dL (8.5-10.1); CHLORIDE 105 mmol/L (98-107); CO2 25 mmol/L (21-32); CREATININE 0.8 mg/dL (0.55-1.3); GLUCOSE,RANDOM 162 mg/dL (74-106); N-TERMINAL BNP 205.4 pg/ml (5-125); POTASSIUM 4.2 mmol/L (3.5-5.1); SGOT/AST 15 U/L (15-37); SGPT/ALT 27 U/L (13-61); SODIUM 137 mmol/L (136-145); TOT PROT 6.5 g/dl (6.4-8.2)
[2018-02-25 06:39] LABS: ARTERIAL BLOOD GAS BASE EXCESS -0.1 meq/l (-2-2); ARTERIAL BLOOD GAS PCO2 36.6 mmHg (35-45); ARTERIAL BLOOD GAS PO2 69.2 mmHg (80-100); ARTERIAL BLOOD GAS pH 7.42 (7.35-7.45); CARBOXYHEMOGLOBIN 0.6 gm% (0.5-2.0)
[2018-02-25 06:55] LABS: ALLENS TEST POSITIVE
--- NOTE | 2018-02-25 08:01 | HP ---
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 Pt noticed on New Year's day the cough productive of clear mucoid sputum, with coughing bouts. There was associated malaise, chills and diaphoresis. There was associated laryngitis (with loss of voice) and nasal congestion. He was seen in Urgent care on Friday and started on Prednisone taper(from 60mg) and augmentin without much improvement. There is associated SOB, worsened by the coughing bouts, but no SOARES, no pedal edema. No hx of sick contact, received flu vaccine this year and PNA vaccine in past. Pt has never been intubated for COPD/Asthma. He uses albuterol inhaler/nebulizers at home, of recent needing up to 7 times of inh use. Pt reports having recurrent sinusitis in past. ED course: Nebs, solumed, NC-Oxygen Flu negative, CXR, CT chest w/o contrast ABG- 7.42/36.6/69.2 Platelets 514 EKbpm, NSR, no RAULTIO/STD, nl axis, QTC- 451 History Source: Patient Limitations to Obtaining History: No Limitations - Past Medical History GRAIN MIXER: Yes: CVA, Seizure, Other (Thalamic pain syndrome) Cardiovascular: Yes: HTN Pulmonary: Yes: Bronchitis, COPD Gastrointestinal: Yes: Other (pancreatic cyst) Musculoskeletal: Yes: Chronic low back pain, Hemiparesis, Hemiplegia, Osteoarthritis (Hip), Other (Chronic neck pain, skin tag, rosacea) ENT: Yes: Sinusitis Endocrine: Yes: Hypothyroidism - Past Surgical History Past Surgical History: Yes: Hernia Repair (L x2) - Smoking History Smoking history: Former smoker Have you smoked in the past 12 months: No Aproximately how many cigarettes per day: 2 If you are a former smoker, when did you quit?: 04/2017 - Alcohol/Substance Use Hx Alcohol Use: No - Social History ADL: Family Assistance Home Medications - Allergies Allergies/Adverse Reactions: Allergies Allergy/AdvReac Type Severity Reaction Status Date / Time fluconazole [From Diflucan] Allergy Severe anaphylaxis Verified 02/25/18 02:21 - Home Medications Home Medications: Ambulatory Orders Atenolol [Tenormin -] 50 mg PO DAILY 10/14/14 Divalproex [Depakote -] 2,000 mg PO BID 10/14/14 Zolpidem Tartrate [Ambien] 10 mg PO HS 01/02/16 Lacosamide [Vimpat -] 150 mg PO BID #60 tab MDD 300 01/03/16 Albuterol Sulfate Inhaler - [Ventolin HFA Inhaler -] 1 - 2 inh PO Q4H #1 inhaler 07/16/17 Levothyroxine [Synthroid -] 75 mcg PO DAILY 07/16/17 Mirtazapine [Remeron -] 30 mg PO DAILY 07/16/17 Amoxicillin/Potassium Clav [Augmentin 875-125 Tablet] 1 each PO BID 02/25/18 Carisoprodol [Soma] 350 mg PO BID PRN 02/25/18 Hydrocodone/Acetaminophen [Hydrocodon-Acetaminoph 7.5-325] 1 each PO Q6H PRN 11/05 Family Disease History - Family Disease History Family Disease History: Heart Disease: Grandparent (Both in their 30s from heart disease), Father (Pacemaker), Mother (Palpitations), Respiratory: Son, Daughter Review of Systems - Review of Systems Constitutional: reports: Chills, Diaphoresis Eyes: reports: Blurred Vision (Bilateral cataracts with raised IOP) HENT: reports: Other (Lost voice) Cardiovascular: reports: Shortness of Breath. denies: Chest Pain Respiratory: reports: Cough, SOB, Wheezing. denies: SOB on Exertion Gastrointestinal: denies: Abdominal Pain Genitourinary: reports: No Symptoms Musculoskeletal: reports: Other (Chronic pain R shoulder) Physical Examination Vital Signs: Vital Signs Temperature 98.3 F 02/25/18 01:24 Pulse Rate 86 02/25/18 06:35 Respiratory Rate 20 02/25/18 06:35 Blood Pressure 128/70 02/25/18 06:35 O2 Sat by Pulse Oximetry (%) 99 02/25/18 06:35 Eyes: Yes: EOM Intact, Other (B/L white reflex (cataracts)) HENT: Yes: Other (Mild sinusoidal pressure). No: Nasal Congestion, Pharyngeal Erythema Neck: Yes: Supple Cardiovascular: Yes: Regular Rate and Rhythm, S1, S2 Respiratory: Yes: On Nasal O2, Wheezes, Other (prolonged expiratory phase) Gastrointestinal: Yes: Normal Bowel Sounds. No: Tenderness Renal/: No: CVA Tenderness - Left, CVA Tenderness - Right Extremities: Yes: WNL Edema: No Peripheral Pulses WNL: Yes Neurological: Yes: Alert, Oriented. No: Aphasia, Confusion, Dysarthria, Facial Droop Labs: CBC, BMP 02/25/18 03:00 02/25/18 04:41 Imaging - Results Cat Scan: Report Reviewed (Many small patchy opacities scattered in the LLL and in NAIMA. Theses infiltrates may represent a pneumonitis or one of numerous kinds of airspace disease. R lung is clear. No pleural or preicardial effusions. No pneumothorax or pneumomediastinum. Osseous structures are intact.Note made of calcified coronary artery plaque.) Assessment/Plan Ambulatory Orders Atenolol [Tenormin -] 50 mg PO DAILY 10/14/14 Divalproex [Depakote -] 2,000 mg PO BID 10/14/14 Zolpidem Tartrate [Ambien] 10 mg PO HS 01/02/16 Lacosamide [Vimpat -] 150 mg PO BID #60 tab MDD 300 01/03/16 Albuterol Sulfate Inhaler - [Ventolin HFA Inhaler -] 1 - 2 inh PO Q4H #1 inhaler 07/16/17 Levothyroxine [Synthroid -] 75 mcg PO DAILY 07/16/17 Mirtazapine [Remeron -] 30 mg PO DAILY 07/16/17 Amoxicillin/Potassium Clav [Augmentin 875-125 Tablet] 1 each PO BID 02/25/18 Carisoprodol [Soma] 350 mg PO BID PRN 02/25/18 Hydrocodone/Acetaminophen [Hydrocodon-Acetaminoph 7.5-325] 1 each PO Q6H PRN 11/05 CT chest 02/25/2017-Prelim: See above Pt is a 62 yo M with PMHx of hemorrhagic stroke() with residual L side weakness, seizure disorder (on vimpat and depakote), migraine, asthma/COPD ( intermittent 2L home O2), Pancreatic cyst, L kidney cyst, nephrolithiasis (s/p cystoscopy), HTN, HLD, Hypothyroidism, R torn rotator cuff, presenting with persistent cough and SOB x 9 days. Acute COPD exacerbation Duonebs Symbicort Solumed 40 Q8H Azithromycin Supplemental Oxygen -NC-2L to maintain sats above 92% (intermittent 2L home O2) ABG in am Acute Laryngitis Received augmentin Azithromycin 500 flu negative RSV Chlamydia AB Legionella/PNA Ag CXR CT chest Community Acquired PNA likely atypical/Pneumonitis CT with Small patchy opacities on L flu negative iv Azithromycin 500mg Iv ceftriaxone 1g daily Ceftriaxone 1 g daily RSV Chlamydia AB Legionella/PNA Ag CXR HTN, Atenolol 50mg daily HLD, Said he is diet controlled Lipid profile Hypothyroidism, TSH-0.57, reports has not been compliant Levothyroxine- 75mcg daily hemorrhagic stroke() with residual L side weakness Not on statin BP mx with atenolol seizure disorder/migraine Diagnosed with epilepsy per pt, had 2 episodes of generalized tonic clonic in past Usually more of partial (absent-like) seizures lasting 45 mins Cont on vimpat and depakote Anxiety/Depression pia Rios Pancreatic cyst Out pt GI follow up L kidney cyst Reports moderate hematuria (microscopic in past) Out pt follow up Carisoprodol Hx of nephrolithiasis (s/p cystoscopy) Stable, no symptoms R torn rotator cuff Slight limitation of range of motion Cont Out pt follow up FEN No standing fluids Monitor lytes Sodium controlled diet PPX Lovenox sq Dispo: Med surg Visit type - Emergency Visit Emergency Visit: Yes ED Registration Date: 02/25/18 Care time: The patient presented to the Emergency Department on the above date and was hospitalized for further evaluation of their emergent condition. - New Patient This patient is new to me today: Yes Date on this admission: 02/25/18 - Critical Care Critical Care patient: No
[2018-02-25] MEDS ORDERED: ALBUTEROL SO4 2.5/IPRATROPIUM 0.5 INH SOL 3 ML VIAL.NEB. NEB PRN (08:10)
[2018-02-25] MEDS ORDERED: PATIENT'S OWN MEDICATION (NON-FORMULARY) (Carisoprodol [Soma] 350 MG) PO PRN (09:49)
--- NOTE | 2018-02-25 09:50 | PN ---
Teaching Attending Note Name of Resident: Evelia Presley ATTENDING PHYSICIAN STATEMENT I saw and evaluated the patient. I reviewed the resident's note and discussed the case with the resident. I agree with the resident's findings and plan as documented. SUBJECTIVE: This is a 62 year old man with a history of HTN, hyperlipidemia, hemorrhagic stroke with left sided weakness, seizure disorder, migraine MORGAN, chronic hypoxic respiratory failure, asthma, COPD, hypothyroidism, depression, anxiety, pancreatic cyst, kidney cyst, nephrolithiasis who comes to the ED with a cough and SOB. He reports having nasal congestion, hoarseness, sweats, and chills. He went to urgent care on 02/20 and was treated with Prednisone and Augmentin. He did not improve and so he came to the ED. OBJECTIVE: Vital Signs Period Temp Pulse Resp BP Sys/Christensen Pulse Ox Last 24 Hr 98.3 F 83-86 18-20 126-128/70-75 96-99 HEART: S1S2, RRR LUNGS: Bilateral wheezes ABDOMEN: Soft, non-tender, non-distended, normal BS EXTREMITIES: No edema Laboratory Tests 02/25/18 02/25/18 02/25/18 03:00 03:00 03:00 WBC 6.9 RBC 4.19 Hgb 13.4 Hct 37.5 MCV 89.6 MCH 32.0 MCHC 35.7 RDW 14.3 Plt Count 514 H D MPV 8.2 Absolute Neuts (auto) 4.6 Total Counted 100 Neutrophils % 66.0 D Neutrophils % (Manual) 67.0 Lymphocytes % 22.5 D Lymphocytes % (Manual) 22.0 Monocytes % 11.2 H Monocytes % (Manual) 10 Eosinophils % 0.0 D Basophils % 0.3 Basophils % (Manual) 1.0 Nucleated RBC % 0 D-Dimer Cancelled Puncture Site ABG pH ABG pCO2 at Pt Temp ABG pO2 at Pt Temp ABG HCO3 ABG O2 Sat (Measured) ABG O2 Content ABG Base Excess Jordan Test Carboxyhemoglobin Methemoglobin O2 Delivery Device Oxygen Flow Rate Sodium Cancelled Potassium Cancelled Chloride Cancelled Carbon Dioxide Cancelled Anion Gap Cancelled BUN Cancelled Creatinine Cancelled Creat Clearance w eGFR Cancelled Random Glucose Cancelled Calcium Cancelled Total Bilirubin Cancelled AST Cancelled ALT Cancelled Alkaline Phosphatase Cancelled Creatine Kinase Cancelled Creatine Kinase Index CK-MB (CK-2) Troponin I Cancelled B-Natriuretic Peptide Total Protein Cancelled Albumin Cancelled TSH Cancelled Influenza A (Rapid) Influenza B (Rapid) RSV Rapid 02/25/18 02/25/18 02/25/18 03:00 04:41 04:41 WBC RBC Hgb Hct MCV MCH MCHC RDW Plt Count MPV Absolute Neuts (auto) Total Counted Neutrophils % Neutrophils % (Manual) Lymphocytes % Lymphocytes % (Manual) Monocytes % Monocytes % (Manual) Eosinophils % Basophils % Basophils % (Manual) Nucleated RBC % D-Dimer 351 Puncture Site ABG pH ABG pCO2 at Pt Temp ABG pO2 at Pt Temp ABG HCO3 ABG O2 Sat (Measured) ABG O2 Content ABG Base Excess Jordan Test Carboxyhemoglobin Methemoglobin O2 Delivery Device Oxygen Flow Rate Sodium 137 Potassium 4.2 Chloride 105 Carbon Dioxide 25 Anion Gap 8 BUN 28 H Creatinine 0.8 Creat Clearance w eGFR > 60 Random Glucose 162 H Calcium 8.4 L Total Bilirubin 0.2 AST 15 ALT 27 Alkaline Phosphatase 65 Creatine Kinase 159 Creatine Kinase Index 0.6 CK-MB (CK-2) < 1.0 Troponin I < 0.02 B-Natriuretic Peptide Cancelled 205.4 H Total Protein 6.5 Albumin 3.0 L TSH 0.57 D Influenza A (Rapid) Influenza B (Rapid) RSV Rapid 02/25/18 02/25/18 02/25/18 06:07 06:07 06:20 WBC RBC Hgb Hct MCV MCH MCHC RDW Plt Count MPV Absolute Neuts (auto) Total Counted Neutrophils % Neutrophils % (Manual) Lymphocytes % Lymphocytes % (Manual) Monocytes % Monocytes % (Manual) Eosinophils % Basophils % Basophils % (Manual) Nucleated RBC % D-Dimer Puncture Site Left radial ABG pH 7.42 ABG pCO2 at Pt Temp 36.6 ABG pO2 at Pt Temp 69.2 L ABG HCO3 23.5 ABG O2 Sat (Measured) 93.0 ABG O2 Content 15.6 ABG Base Excess -0.1 Jordan Test Positive Carboxyhemoglobin 0.6 Methemoglobin 0.3 L O2 Delivery Device Room air Oxygen Flow Rate 21% Sodium Potassium Chloride Carbon Dioxide Anion Gap BUN Creatinine Creat Clearance w eGFR Random Glucose Calcium Total Bilirubin AST ALT Alkaline Phosphatase Creatine Kinase Creatine Kinase Index CK-MB (CK-2) Troponin I B-Natriuretic Peptide Total Protein Albumin TSH Influenza A (Rapid) Negative Influenza B (Rapid) Negative RSV Rapid Negative Home Medications Medication Instructions Recorded Atenolol [Tenormin -] 50 mg PO DAILY 10/14/14 Divalproex [Depakote -] 2,000 mg PO BID 10/14/14 Zolpidem Tartrate [Ambien] 10 mg PO HS 01/02/16 Lacosamide [Vimpat -] 150 mg PO BID #60 tab MDD 300 01/03/16 Albuterol Sulfate Inhaler - 1 - 2 inh PO Q4H #1 inhaler 07/16/17 [Ventolin HFA Inhaler -] Levothyroxine [Synthroid -] 75 mcg PO DAILY 07/16/17 Mirtazapine [Remeron -] 30 mg PO DAILY 07/16/17 Amoxicillin/Potassium Clav 1 each PO BID 02/25/18 [Augmentin 875-125 Tablet] Carisoprodol [Soma] 350 mg PO BID PRN 02/25/18 Hydrocodone/Acetaminophen 1 each PO Q6H PRN 02/25/18 [Hydrocodon-Acetaminoph 7.5-325] ASSESSMENT AND PLAN: This is a 62 year old man with a history of HTN, hyperlipidemia, hemorrhagic stroke with left sided weakness, seizure disorder, migraine MORGAN, chronic hypoxic respiratory faiulure, asthma, COPD, hypothyroidism, depression, anxiety, pancreatic cyst, kidney cyst, nephrolithiasis who presented to the ED with a cough and SOB. 1. Acute exacerbation of COPD/asthma secondary to pneumonia - Failed outpatient treatment with Augmentin, Prednisone - SoluMedrol, ceftriaxone, Zithromax, DuoNeb, albuterol as needed - Oxygen to maintain saturation >90% - Pulmonary consult 2. Chronic hypoxic respiratory failure 3. HTN - Continue atenolol 4. Hyperlipidemia 5. Left sided weakness secondary to old hemorrhagic CVA 6. Seizure disorder - Continue Depakote, Vimpat 7. Hypothyroidism - Continue Synthroid 8. Depression with anxiety - Continue Remeron
[2018-02-25] MEDS: CEFTRIAXONE 1 GM in DEXTROSE 5%-WATER - 50 ML IVPB SCH (10:26)
[2018-02-25] MEDS: ENOXAPARIN NA (PORCINE) 40 MG/0.4 ML DISP.SYRIN SQ SCH (10:26)
[2018-02-25] MEDS: AZITHROMYCIN IVPB 500 MG in DEXTROSE 5%-WATER - 250 ML IVPB SCH (10:28)
[2018-02-25 10:39] LABS: HEMATOCRIT 35.9 % (35.4-49); HEMOGLOBIN 12.7 GM/dL (11.7-16.9); MCH 32.1 pg (25.7-33.7); MCHC 35.3 g/dl (32.0-35.9); MEAN PLT VOLUME 7.9 fl (7.5-11.1); PLATELET COUNT 483 K/MM3 (134-434); RBC 3.95 M/mm3 (4.00-5.60)
--- NOTE | 2018-02-25 11:18 | EKG ---
Test Reason : Blood Pressure : / mmHG Vent. Rate : 084 BPM Atrial Rate : 084 BPM P-R Int : 116 ms QRS Dur : 102 ms QT Int : 382 ms P-R-T Axes : 050 042 069 degrees QTc Int : 451 ms POOR DATA QUALITY, INTERPRETATION MAY BE ADVERSELY AFFECTED NORMAL SINUS RHYTHM NONSPECIFIC ST ABNORMALITY ABNORMAL ECG WHEN COMPARED WITH ECG OF 14-MAR-2017 05:59, NO SIGNIFICANT CHANGE WAS FOUND Confirmed by TITI HENSLEY, MARYANN ([id number]) on 02/25/2018 11:17:44 AM Referred By: Confirmed By:MARYANN WALLS MD
[2018-02-25] MEDS: DIVALPROEX SODIUM 500 MG TABLET E.C. PO SCH ×2 (11:24→22:39)
[2018-02-25] MEDS: methylPREDNISolone NA SUCC 40 MG/1 ML VIAL IVPUSH SCH ×2 (11:24→17:47)
[2018-02-25] MEDS: ATENOLOL 50 MG TABLET (FP) PO SCH (11:24)
[2018-02-25] MEDS: LEVOTHYROXINE NA 75 MCG TABLET (FP) PO SCH (11:25)
[2018-02-25] MEDS ORDERED: LACOSAMIDE 50 MG TABLET PO ONE (11:39)
[2018-02-25] MEDS: LACOSAMIDE 50 MG TABLET PO SCH ×2 (11:41→22:41)
--- NOTE | 2018-02-25 14:07 | CON.PULM ---
Consult Consult Specialty:: PULMONARY Referred by:: Dr. Frye Reason for Consultation:: shortness of breath - History of Present Illness Chief Complaint: shortness of breath History of Present Illness: 62yo male with h/o HTN, hyperlipidemia, hypothyroidism, COPD, chronic hypoxic respiratory failure on home O2, h/o CVA, seizure disorder who was admitted with worsening shortness of breath x 9 days. Denies chest pain or palpitations. Reports cough productive of thick clear sputum and wheezing. No fevers but with chills and sweats. No sick contacts or recent travel. Went to urgent care who prescribed him prednisone and augmentin without significant relief. He is maintained only on albuterol. Started smoking at age 18, smoked as much as 2 PPD and quit 3 months ago. 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, Other (Thalamic pain syndrome) Cardio/Vascular: Yes: HTN Pulmonary: Yes: Bronchitis, COPD Gastrointestinal: Yes: Other (pancreatic cyst) Musculoskeletal: Yes: Chronic low back pain, Hemiparesis, Hemiplegia, Osteoarthritis (Hip), Other (Chronic neck pain, skin tag, rosacea) ENT: Yes: Sinusitis Endocrine: Yes: Hypothyroidism - Past Surgical History Past Surgical History: Yes: Hernia Repair (L x2) - Alcohol/Substance Use Hx Alcohol Use: No - Smoking History Smoking history: Former smoker Have you smoked in the past 12 months: No Aproximately how many cigarettes per day: 2 If you are a former smoker, when did you quit?: 04/2017 - Social History Usual Living Arrangement: With Spouse ADL: Family Assistance Home Medications - Allergies Allergies/Adverse Reactions: Allergies Allergy/AdvReac Type Severity Reaction Status Date / Time fluconazole [From Diflucan] Allergy Severe anaphylaxis Verified 02/25/18 02:21 - Home Medications Home Medications: Ambulatory Orders Atenolol [Tenormin -] 50 mg PO DAILY 10/14/14 Divalproex [Depakote -] 2,000 mg PO BID 10/14/14 Zolpidem Tartrate [Ambien] 10 mg PO HS 01/02/16 Lacosamide [Vimpat -] 150 mg PO BID #60 tab MDD 300 01/03/16 Albuterol Sulfate Inhaler - [Ventolin HFA Inhaler -] 1 - 2 inh PO Q4H #1 inhaler 07/16/17 Levothyroxine [Synthroid -] 75 mcg PO DAILY 07/16/17 Mirtazapine [Remeron -] 30 mg PO DAILY 07/16/17 Amoxicillin/Potassium Clav [Augmentin 875-125 Tablet] 1 each PO BID 02/25/18 Carisoprodol [Soma] 350 mg PO BID PRN 02/25/18 Hydrocodone/Acetaminophen [Hydrocodon-Acetaminoph 7.5-325] 1 each PO Q6H PRN 11/05 Family Disease History - Family Disease History Family Disease History: Heart Disease: Grandparent (Both in their 30s from heart disease), Father (Pacemaker), Mother (Palpitations), Respiratory: Son, Daughter Review of Systems - Review of Systems Constitutional: reports: Chills, Malaise, Weakness. denies: Fever Eyes: denies: Recent Change in Vision HENT: denies: Nasal Congestion, Throat Pain Neck: denies: Stiffness, Tenderness Cardiovascular: reports: Shortness of Breath. denies: Chest Pain, Edema, Palpitations Respiratory: reports: Cough, Exercise Intolerance, Wheezing. denies: Hemoptysis Gastrointestinal: denies: Abdominal Pain, Nausea, Vomiting Genitourinary: denies: Dysuria, Hematuria Neurological: denies: Dizziness, Headache Endocrine: denies: Unexplained Weight Loss Physical Exam Vital Sings: Vital Signs Temperature 98.2 F 02/25/18 13:31 Pulse Rate 81 02/25/18 13:31 Respiratory Rate 19 02/25/18 13:31 Blood Pressure 118/80 02/25/18 13:31 O2 Sat by Pulse Oximetry (%) 97 02/25/18 13:31 Constitutional: Yes: Calm Eyes: Yes: Conjunctiva Clear, EOM Intact HENT: Yes: Atraumatic, Normocephalic Neck: Yes: Supple, Trachea Midline Cardiovascular: Yes: Regular Rate and Rhythm Respiratory: Yes: Rhonchi, Wheezes ...Clubbing: No Gastrointestinal: Yes: Normal Bowel Sounds, Soft. No: Tenderness Edema: No Neurological: Yes: Alert, Oriented Labs: CBC, BMP 02/25/18 10:28 02/25/18 04:41 ABG Results ABG pH 7.42 (7.35-7.45) 02/25/18 06:20 ABG pCO2 at Pt Temp 36.6 mmHg (35-45) 02/25/18 06:20 ABG pO2 at Pt Temp 69.2 mmHg (80-100) L 02/25/18 06:20 ABG HCO3 23.5 meq/L (22-26) 02/25/18 06:20 ABG O2 Sat (Measured) 93.0 % (90-98.9) 02/25/18 06:20 ABG O2 Content 15.6 % vol (15-22) 02/25/18 06:20 ABG Base Excess -0.1 meq/l (-2-2) 02/25/18 06:20 Imaging - Results Chest X-ray: Report Reviewed, Image Reviewed Cat Scan: Report Reviewed, Image Reviewed (patchy left infiltrates) Problem List - Problems (1) COPD with acute exacerbation Code(s): J44.1 - CHRONIC OBSTRUCTIVE PULMONARY DISEASE W (ACUTE) EXACERBATION (2) Pneumonia Code(s): J18.9 - PNEUMONIA, UNSPECIFIED ORGANISM Assessment/Plan Acute COPD Exacerbation Pneumonia Chronic Hypoxic Respiratory Failure HTN Hyperlipidemia Hypothyroidism h/o CVA Seizure Disorder - IV medrol - inhaled bronchodilators standing and PRN - O2 to keep SpO2 >90% - agree with current antibiotic coverage - f/u cultures - outpt PFTs and f/u - DVT prophylaxis Thank you for this consult Torey Soria MD
[2018-02-25] MEDS: BUDESONIDE/FORMETEROL FUMARATE 160/4.5 mcg INHALER IH SCH ×2 (14:26→22:41)
--- NOTE | 2018-02-25 17:01 | FALL ---
Fall Exam - Event Location of Fall: Patient Room Fall from: bending over to charge phone - Pre-Fall Mental Status: Alert, Oriented, Cooperative Current Medications: Current Medications Generic Name Dose Route Start Last Admin Trade Name Freq PRN Reason Stop Dose Admin Albuterol/Ipratropium 1 amp 02/25/18 12:00 02/25/18 11:25 Duoneb - NEB 1 amp RQID DARRYN Administration Albuterol/Ipratropium 1 amp 02/25/18 08:10 Duoneb - NEB Q4H PRN SHORTNESS OF BREATH Atenolol 50 mg 02/25/18 10:00 02/25/18 11:24 Tenormin - PO 50 mg DAILY DARRYN Administration Budesonide/Formoterol Fumarate 2 puff 02/25/18 10:00 02/25/18 14:26 Symbicort 160/4.5mcg - IH Not Given BID DARRYN Divalproex Sodium 2,000 mg 02/25/18 10:00 02/25/18 11:24 Depakote - PO 2,000 mg BID DARRYN Administration Enoxaparin Sodium 40 mg 02/25/18 10:00 02/25/18 10:26 Lovenox - SQ 40 mg DAILY DARRYN Administration Azithromycin 500 mg/ Dextrose 250 mls @ 250 mls/hr 02/25/18 10:00 02/25/18 10 :28 IVPB 250 mls/hr DAILY DARRYN Administration Ceftriaxone Sodium 1 gm/ 50 mls @ 100 mls/hr 02/25/18 10:00 02/25/18 10:26 Dextrose IVPB 100 mls/hr DAILY DARRYN Administration Protocol Lacosamide 150 mg 02/25/18 10:00 02/25/18 11:41 Vimpat - PO 150 mg BID DARRYN Administration Levothyroxine Sodium 75 mcg 02/25/18 10:15 02/25/18 11:25 Synthroid - PO 75 mcg DAILY@0700 DARRYN Administration Methylprednisolone Sodium Succinate 40 mg 02/25/18 10:00 02/25/18 11:24 Solu-Medrol - IVPUSH 40 mg Q8H-IV DARRYN Administration Mirtazapine 30 mg 02/25/18 22:00 Remeron - PO HS DARRYN Zolpidem Tartrate 10 mg 02/25/18 22:00 Ambien - PO HS DARRYN - Post-Fall Patient Outcome: No Injury Vital Signs: Vital Signs Temperature 98.0 F 02/25/18 14:25 Pulse Rate 71 02/25/18 14:25 Respiratory Rate 19 02/25/18 15:12 Blood Pressure 111/66 02/25/18 14:25 O2 Sat by Pulse Oximetry (%) 98 02/25/18 15:12 LOC Post-Fall: Unchanged Identify factors for HIGH RISK for Head Injury: None of the above (Patient states that he fell from a bent-over position as he was attempting to charge his phone. Patient denies trauma to his head. Event witnessed by at bedside, who states patient did not hit his head. Patient admits history of prior CVA, with residual left-sided weakness. EXAM: General: Patient is awake , alert, oriented to person, place, time, in no acute distress Pulmonary: On 2L nasal canula. Expiratory wheezing auscultated B/L. Cardiac: +S1, S2 auscultated. No murmurs. Abdomen: soft, nontender to light, deep palpation X4 quadrants. Normoactive bowel sounds X4 quadrants. Neuro: CN II-XII grossly intact B/L. Strength 5/5 B/L upper and lower extremities. Strength 4/5 left lower extremity, strength 5/5 right lower extremity)
[2018-02-25] MEDS ORDERED: ZOLPIDEM TARTRATE 5 MG TABLET PO SCH (22:00)
[2018-02-25] MEDS ORDERED: PT OWN MED DRAWER 7, Y5N ONE (22:26)
[2018-02-25] MEDS ORDERED: MIRTAZAPINE 15 MG TABLET (FP) ONE (22:26)
[2018-02-25] MEDS: MIRTAZAPINE 30 MG TABLET (FP) PO SCH (22:40)
[2018-02-25 23:25] LABS: URINE APPEARANCE CLEAR; URINE BILIRUBIN NEGATIVE (<2.0 mg/dL); URINE COLOR LTYELLOW; URINE GLUCOSE (UA) NEGATIVE (NEGATIVE); URINE KETONE TRACE (NEGATIVE); URINE LEUK ESTERASE NEGATIVE (NEGATIVE); URINE NITRITE NEGATIVE (NEGATIVE); URINE PROTEIN NEGATIVE (NEGATIVE); URINE UROBILINOGEN NEGATIVE mg/dL (0.2-1.0)
[2018-02-26] MEDS: methylPREDNISolone NA SUCC 40 MG/1 ML VIAL IVPUSH SCH ×3 (01:31→17:19)
[2018-02-26] MEDS: LEVOTHYROXINE NA 75 MCG TABLET (FP) PO SCH (06:43)
[2018-02-26 07:35] LABS: BASO % 0.1 % (0-2.0); HEMATOCRIT 35.3 % (35.4-49); HEMOGLOBIN 12.4 GM/dL (11.7-16.9); LYMPH % 15.2 % (8-40); MCH 32.8 pg (25.7-33.7); MCHC 35.1 g/dl (32.0-35.9); MEAN CELL VOLUME 93.4 fl (80-96); MEAN PLT VOLUME 8.2 fl (7.5-11.1); MONO % 4.4 % (3.8-10.2); NEUT % 80.3 % (42.8-82.8); PLATELET COUNT 499 K/MM3 (134-434); RBC 3.78 M/mm3 (4.00-5.60); RDW 14.2 % (11.9-15.9); WHITE BLOOD COUNT 8.4 K/mm3 (4.0-10.0)
[2018-02-26 07:49] LABS: ALBUMIN 2.9 g/dl (3.4-5.0); ALK PHOS 59 U/L (45-117); ANION GAP 5 MMOL/L (8-16); BILIRUBIN,TOTAL 0.2 mg/dL (0.2-1); BLOOD UREA NITROGEN 19 mg/dL (7-18); CHLORIDE 105 mmol/L (98-107); CHOLESTEROL 229 mg/dL (50-200); CO2 28 mmol/L (21-32); CREATININE 0.8 mg/dL (0.55-1.3); GLUCOSE,RANDOM 131 mg/dL (74-106); HDL CHOLESTEROL 44 mg/dL (40-60); MAGNESIUM 2.8 mg/dL (1.8-2.4); PHOSPHOROUS 4.2 mg/dL (2.5-4.9); POTASSIUM 5.3 mmol/L (3.5-5.1); SGOT/AST 10 U/L (15-37); SGPT/ALT 22 U/L (13-61); SODIUM 138 mmol/L (136-145); TOT PROT 6.2 g/dl (6.4-8.2); TRIGLYCERIDES 75 mg/dL (0-150)
[2018-02-26 07:51] LABS: INR 1.06 (0.83-1.09); PROTHROMBIN TIME (PATIENT) 12.5 SEC (9.7-13.0)
[2018-02-26] MEDS: ALBUTEROL SO4 2.5/IPRATROPIUM 0.5 INH SOL 3 ML VIAL.NEB. NEB SCH ×4 (07:57→21:16)
[2018-02-26] MEDS ORDERED: ALBUTEROL SO4 0.083% IH SOL 2.5 MG/3 ML VIAL.NEB. NEB PRN (08:45)
[2018-02-26] MEDS ORDERED: DEXTROSE 5%-WATER - 50 ML IVPB ONE (09:41)
[2018-02-26] MEDS ORDERED: cefTRIAXone SODIUM 1 GM VIAL ONE (09:41)
--- NOTE | 2018-02-26 09:51 | PN ---
Physical Exam: SUBJECTIVE: Patient seen and examined at bedside this morning. He endorses subjective chills, and night sweats overnight. He endorses productive cough with yellow sputum associated with shortness of breath. Denies abdominal pain, nausea, vomiting. Yesterday afternoon patient lost his balance as he bent down to charge his phone. Witnessed by patient's at bedside. Patient and deny that he hit his head. Patient refused CT scan of the head. OBJECTIVE: Vital Signs Period Temp Pulse Resp BP Sys/Christensen Pulse Ox Last 24 Hr 97.2 F-98.2 F 63-81 18-19 104-154/58-80 97-98 GENERAL: The patient is awake, alert, and fully oriented, in no acute distress. Patient is on 2L nasal canula HEAD: Normal with no signs of trauma. EYES: PERRL, extraocular movements intact, sclera anicteric, conjunctiva clear. ENT: Oropharynx clear without exudates, moist mucous membranes. NECK: Supple without lymphadenopathy, or JVD LUNGS: Good inspiratory effort. Coarse crackles, inspiratory and end expiratory wheezes B/L. Patient is not using accessory muscles of respiration. HEART: Regular rate and rhythm, S1, S2 without murmur, rub or gallop. ABDOMEN: Soft, nontender to light and deep palpation, nondistended. Normoactive bowel sounds X4 quadrants. No guarding, no rebound tenderness. EXTREMITIES: 2+ radial and dorsalis pedis pulses B/L. Warm, well-perfused. No lower extremity edema B/L NEUROLOGICAL: CN II-XII grossly intact, however slight left-sided facial asymmetry with smile, and diminished left sided facial sensation noted. Strength 5/5 B/L upper extremities. Strength 4/5 left lower extremity. Strength 5/5 right lower extremity. Sensation diminished left upper and lower extremities. (Patient reports left sided exam findings are chronic and residual from prior CVA). PSYCH: Normal mood, normal affect upon my encounter today. SKIN: Warm, dry. Laboratory Results - last 24 hr 02/25/18 02/25/18 02/26/18 10:28 23:08 06:30 WBC 7.0 8.4 RBC 3.95 L 3.78 L Hgb 12.7 12.4 Hct 35.9 35.3 L MCV 91.0 93.4 MCH 32.1 32.8 MCHC 35.3 35.1 RDW 14.0 14.2 Plt Count 483 H 499 H MPV 7.9 8.2 Absolute Neuts (auto) 6.7 Neutrophils % 80.3 D Lymphocytes % 15.2 D Monocytes % 4.4 Eosinophils % 0.0 Basophils % 0.1 Nucleated RBC % 0 PT with INR INR Sodium Potassium Chloride Carbon Dioxide Anion Gap BUN Creatinine Creat Clearance w eGFR Random Glucose Calcium Phosphorus Magnesium Total Bilirubin AST ALT Alkaline Phosphatase Total Protein Albumin Triglycerides Cholesterol Total LDL Cholesterol HDL Cholesterol Urine Color Ltyellow Urine Appearance Clear Urine pH 6.0 Ur Specific [place] 1.020 Urine Protein Negative Urine Glucose (UA) Negative Urine Ketones Trace H Urine Blood 1+ H Urine Nitrite Negative Urine Bilirubin Negative Urine Urobilinogen Negative Ur Leukocyte Esterase Negative Urine WBC (Auto) <1 Urine RBC (Auto) 1 02/26/18 02/26/18 06:30 06:30 WBC RBC Hgb Hct MCV MCH MCHC RDW Plt Count MPV Absolute Neuts (auto) Neutrophils % Lymphocytes % Monocytes % Eosinophils % Basophils % Nucleated RBC % PT with INR 12.50 INR 1.06 Sodium 138 Potassium 5.3 H Chloride 105 Carbon Dioxide 28 Anion Gap 5 L BUN 19 H Creatinine 0.8 Creat Clearance w eGFR > 60 Random Glucose 131 H Calcium 8.0 L Phosphorus 4.2 Magnesium 2.8 H Total Bilirubin 0.2 AST 10 L ALT 22 Alkaline Phosphatase 59 Total Protein 6.2 L Albumin 2.9 L Triglycerides 75 Cholesterol 229 H Total LDL Cholesterol 155 H HDL Cholesterol 44 Urine Color Urine Appearance Urine pH Ur Specific [place] Urine Protein Urine Glucose (UA) Urine Ketones Urine Blood Urine Nitrite Urine Bilirubin Urine Urobilinogen Ur Leukocyte Esterase Urine WBC (Auto) Urine RBC (Auto) Active Medications Generic Name Dose Route Start Last Admin Trade Name Freq PRN Reason Stop Dose Admin Albuterol Sulfate 1 amp 02/26/18 08:45 Ventolin 0.083% Nebulizer Soln - NEB Q4H PRN SHORT OF BREATH/WHEEZING Albuterol/Ipratropium 1 amp 02/25/18 12:00 02/26/18 07:57 Duoneb - NEB 1 amp RQID DARRYN Administration Atenolol 50 mg 02/25/18 10:00 02/25/18 11:24 Tenormin - PO 50 mg DAILY DARRYN Administration Budesonide/Formoterol Fumarate 2 puff 02/25/18 10:00 02/25/18 22:41 Symbicort 160/4.5mcg - IH 2 puff BID DARRYN Administration Divalproex Sodium 2,000 mg 02/25/18 10:00 02/25/18 22:39 Depakote - PO 2,000 mg BID DARRYN Administration Enoxaparin Sodium 40 mg 02/25/18 10:00 02/25/18 10:26 Lovenox - SQ 40 mg DAILY DARRYN Administration Azithromycin 500 mg/ Dextrose 250 mls @ 250 mls/hr 02/25/18 10:00 02/25/18 10 :28 IVPB 250 mls/hr DAILY DARRYN Administration Ceftriaxone Sodium 1 gm/ 50 mls @ 100 mls/hr 02/25/18 10:00 02/25/18 10:26 Dextrose IVPB 100 mls/hr DAILY DARRYN Administration Protocol Lacosamide 150 mg 02/25/18 10:00 02/25/18 22:41 Vimpat - PO 150 mg BID DARRYN Administration Levothyroxine Sodium 75 mcg 02/25/18 10:15 02/26/18 06:43 Synthroid - PO 75 mcg DAILY@0700 DARRYN Administration Methylprednisolone Sodium Succinate 40 mg 02/25/18 10:00 02/26/18 01:31 Solu-Medrol - IVPUSH 40 mg Q8H-IV DARRYN Administration Mirtazapine 30 mg 02/25/18 22:00 02/25/18 22:40 Remeron - PO 30 mg HS DARRYN Administration Zolpidem Tartrate 10 mg 02/25/18 22:00 02/25/18 22:39 Ambien - PO Not Given HS DARRYN IMAGING Chest X-ray: Segmental left lower lobe infiltrate CT chest: Patchy left lower lobe, lingula, and left upper lobe opacities, suggestive of pneumonitis. Atherosclerotic coronary calcifications. ASSESSMENT/PLAN: Patient is a 62 year old male with history of intermittent asthma, COPD (on home oxygen), seizure disorder, prior CVA with residual left sided weakness, hypothyroidism, hypertension presents with complaint of shortness of breath with productive cough for past nine days. COPD, asthma exacerbation -Likely secondary to pneumonia. -Duonebs 1 amp QID -Albuterol nebulizer Q4H PRN -Methylprednisone 40mg IV Q8H -Azithromycin 500mg IV daily (day #2) -Centriaxone 1 gram IV daily (day #2) -Urine negative for legionella antigens -Blood cultures negative for growth at 24 hours. Hypertension -Atenolol 50mg PO daily Hypothyroidism -Synthroid 75mcg daily Seizure disorder -Depakote 1000mg PO BID -Vimpat 200mg PO BID History of prior CVA -Residual, chronic left sided weakness, and diminished sensation. Anxiety, depression -Remeron 30mg PO HS Insomnia -Zolpidem 10mg PO HS PRN FEN -No IV fluids indicated -Follow CMP -Sodium controlled diet Prophylaxis -Lovenox 40mg subq daily -Protonix 40mg PO daily Disposition -Continue care in medical-surgical floor Fall precautions Visit type - Emergency Visit Emergency Visit: Yes ED Registration Date: 02/25/18 Care time: The patient presented to the Emergency Department on the above date and was hospitalized for further evaluation of their emergent condition. - New Patient This patient is new to me today: No - Critical Care Critical Care patient: No - Discharge Referral Referred to [facility] No
[2018-02-26] MEDS: ATENOLOL 50 MG TABLET (FP) PO SCH (10:07)
[2018-02-26] MEDS: ENOXAPARIN NA (PORCINE) 40 MG/0.4 ML DISP.SYRIN SQ SCH (10:08)
[2018-02-26] MEDS: BUDESONIDE/FORMETEROL FUMARATE 160/4.5 mcg INHALER IH SCH (10:09)
[2018-02-26] MEDS: CEFTRIAXONE 1 GM in DEXTROSE 5%-WATER - 50 ML IVPB SCH (10:13)
[2018-02-26 10:31] LABS: ANISOCYTOSIS 1+; MACROCYTOSIS 1+; PLATELET ESTIMATE INCREASED
--- NOTE | 2018-02-26 10:51 | PN ---
Progress Note (short form) - Note Progress Note: No gross change in congested cough. No hemoptysis. Requesting cough syrup with codeine. Intake & Output 02/23/18 02/24/18 02/25/18 02/26/18 23:59 23:59 23:59 23:59 Intake Total 1235 0 Balance 1235 0 Weight 170 lb 1.6 oz Last Vital Signs Temp Pulse Resp BP Pulse Ox 97.5 F L 80 18 132/66 98 02/26/18 10:00 02/26/18 10:00 02/26/18 10:00 02/26/18 10:00 02/25/18 21:00 Active Medications Albuterol Sulfate (Ventolin 0.083% Nebulizer Soln -) 1 amp NEB Q4H PRN PRN Reason: SHORT OF BREATH/WHEEZING Albuterol/Ipratropium (Duoneb -) 1 amp NEB RQID [facility] Last Admin: 02/26/18 07:57 Dose: 1 amp Atenolol (Tenormin -) 50 mg PO DAILY [facility] Last Admin: 02/26/18 10:07 Dose: 50 mg Budesonide/Formoterol Fumarate (Symbicort 160/4.5mcg -) 2 puff IH BID [facility] Last Admin: 02/26/18 10:09 Dose: 2 puff Divalproex Sodium (Depakote -) 2,000 mg PO BID [facility] Last Admin: 02/25/18 22:39 Dose: 2,000 mg Enoxaparin Sodium (Lovenox -) 40 mg SQ DAILY [facility] Last Admin: 02/26/18 10:08 Dose: 40 mg Azithromycin 500 mg/ Dextrose 250 mls @ 250 mls/hr IVPB DAILY [facility] Last Admin: 02/25/18 10:28 Dose: 250 mls/hr Ceftriaxone Sodium 1 gm/ (Dextrose) 50 mls @ 100 mls/hr IVPB DAILY [facility]; Protocol Last Admin: 02/26/18 10:13 Dose: 100 mls/hr Lacosamide (Vimpat -) 150 mg PO BID [facility] Last Admin: 02/25/18 22:41 Dose: 150 mg Levothyroxine Sodium (Synthroid -) 75 mcg PO DAILY@0700 [facility] Last Admin: 02/26/18 06:43 Dose: 75 mcg Methylprednisolone Sodium Succinate (Solu-Medrol -) 40 mg IVPUSH Q8H-IV [facility] Last Admin: 02/26/18 10:07 Dose: 40 mg Mirtazapine (Remeron -) 30 mg PO [facility] Last Admin: 02/25/18 22:40 Dose: 30 mg Zolpidem Tartrate (Ambien -) 10 mg PO [facility] Last Admin: 02/25/18 22:39 Dose: Not Given Constitutional: Yes: NAD Eyes: Yes: Conjunctiva Clear, EOM Intact HENT: Yes: Atraumatic, Normocephalic Neck: Yes: Supple, Trachea Midline Cardiovascular: Yes: Regular Rate and Rhythm Respiratory: Yes: Bilateral Rhonchi, Wheezes ...Clubbing: No Gastrointestinal: Yes: Normal Bowel Sounds, Soft. No: Tenderness Edema: No Neurological: Yes: Alert, Oriented Labs: Laboratory Results - last 24 hr 02/25/18 02/25/18 02/26/18 10:28 23:08 06:30 WBC 7.0 8.4 RBC 3.95 L 3.78 L Hgb 12.7 12.4 Hct 35.9 35.3 L MCV 91.0 93.4 MCH 32.1 32.8 MCHC 35.3 35.1 RDW 14.0 14.2 Plt Count 483 H 499 H MPV 7.9 8.2 Absolute Neuts (auto) 6.7 Neutrophils % 80.3 D Lymphocytes % 15.2 D Monocytes % 4.4 Eosinophils % 0.0 Basophils % 0.1 Nucleated RBC % 0 PT with INR INR Sodium Potassium Chloride Carbon Dioxide Anion Gap BUN Creatinine Creat Clearance w eGFR Random Glucose Calcium Phosphorus Magnesium Total Bilirubin AST ALT Alkaline Phosphatase Total Protein Albumin Triglycerides Cholesterol Total LDL Cholesterol HDL Cholesterol Urine Color Ltyellow Urine Appearance Clear Urine pH 6.0 Ur Specific Zeigler 1.020 Urine Protein Negative Urine Glucose (UA) Negative Urine Ketones Trace H Urine Blood 1+ H Urine Nitrite Negative Urine Bilirubin Negative Urine Urobilinogen Negative Ur Leukocyte Esterase Negative Urine WBC (Auto) <1 Urine RBC (Auto) 1 02/26/18 02/26/18 06:30 06:30 WBC RBC Hgb Hct MCV MCH MCHC RDW Plt Count MPV Absolute Neuts (auto) Neutrophils % Lymphocytes % Monocytes % Eosinophils % Basophils % Nucleated RBC % PT with INR 12.50 INR 1.06 Sodium 138 Potassium 5.3 H Chloride 105 Carbon Dioxide 28 Anion Gap 5 L BUN 19 H Creatinine 0.8 Creat Clearance w eGFR > 60 Random Glucose 131 H Calcium 8.0 L Phosphorus 4.2 Magnesium 2.8 H Total Bilirubin 0.2 AST 10 L ALT 22 Alkaline Phosphatase 59 Total Protein 6.2 L Albumin 2.9 L Triglycerides 75 Cholesterol 229 H Total LDL Cholesterol 155 H HDL Cholesterol 44 Urine Color Urine Appearance Urine pH Ur Specific Zeigler Urine Protein Urine Glucose (UA) Urine Ketones Urine Blood Urine Nitrite Urine Bilirubin Urine Urobilinogen Ur Leukocyte Esterase Urine WBC (Auto) Urine RBC (Auto) Problem List - Problems (1) COPD with acute exacerbation Code(s): J44.1 - CHRONIC OBSTRUCTIVE PULMONARY DISEASE W (ACUTE) EXACERBATION (2) Pneumonia Code(s): J18.9 - PNEUMONIA, UNSPECIFIED ORGANISM Assessment/Plan Acute COPD Exacerbation Pneumonia Chronic Hypoxic Respiratory Failure HTN Hyperlipidemia Hypothyroidism h/o CVA Seizure Disorder - IV medrol - inhaled bronchodilators standing and PRN - O2 to keep SpO2 >90% - Current antibiotic coverage - f/u cultures - outpt PFTs and f/u - DVT prophylaxis - Cough syrup PRN Dr Moyer
[2018-02-26] MEDS: LACOSAMIDE 50 MG TABLET PO SCH ×2 (12:09→22:14)
[2018-02-26] MEDS: guaiFENesin/CODEINE 10 ML UNIT-DOSE CUPS PO PRN ×2 (12:09→22:26)
[2018-02-26 13:05] LABS: ANION GAP 6 MMOL/L (8-16); BLOOD UREA NITROGEN 21 mg/dL (7-18); CALCIUM 8.4 mg/dL (8.5-10.1); CHLORIDE 105 mmol/L (98-107); CO2 29 mmol/L (21-32); CREATININE 0.7 mg/dL (0.55-1.3); GLUCOSE,RANDOM 108 mg/dL (74-106); POTASSIUM 4.6 mmol/L (3.5-5.1); SODIUM 140 mmol/L (136-145)
[2018-02-26] MEDS: AZITHROMYCIN IVPB 500 MG/250 ML BAG IVPB SCH (13:23)
[2018-02-26] MEDS: AZITHROMYCIN IVPB 500 MG in DEXTROSE 5%-WATER - 250 ML IVPB SCH (13:24)
[2018-02-26] MEDS: DIVALPROEX SODIUM 500 MG TABLET E.C. PO SCH ×2 (13:34→22:15)
[2018-02-26] MEDS: PANTOPRAZOLE 40 MG TABLET (FP) PO SCH (13:37)
[2018-02-26 17:01] VITALS: BMI 24.3
--- NOTE | 2018-02-26 17:42 | PN ---
Teaching Attending Note Name of Resident: Jean Pierre Urrutia ATTENDING PHYSICIAN STATEMENT I saw and evaluated the patient. I reviewed the resident's note and discussed the case with the resident. I agree with the resident's findings and plan as documented. SUBJECTIVE: Patient feels SOB and complains of cough. OBJECTIVE: Vital Signs Period Temp Pulse Resp BP Sys/Christensen Pulse Ox Last 24 Hr 97.2 F-97.9 F 63-80 18-18 104-154/58-72 98 HEART: S1S2, RRR LUNGS: Bilateral rhonchi and wheezes ABDOMEN: Soft, non-tender, non-distended, normal BS EXTREMITIES: No edema Laboratory Tests 02/25/18 02/25/18 02/25/18 03:00 03:00 03:00 WBC 6.9 RBC 4.19 Hgb 13.4 Hct 37.5 MCV 89.6 MCH 32.0 MCHC 35.7 RDW 14.3 Plt Count 514 H D MPV 8.2 Absolute Neuts (auto) 4.6 Total Counted 100 Neutrophils % 66.0 D Neutrophils % (Manual) 67.0 Band Neutrophils % Lymphocytes % 22.5 D Lymphocytes % (Manual) 22.0 Monocytes % 11.2 H Monocytes % (Manual) 10 Eosinophils % 0.0 D Eosinophils % (Manual) Basophils % 0.3 Basophils % (Manual) 1.0 Myelocytes % (Man) Promyelocytes % (Man) Blast Cells % (Manual) Nucleated RBC % 0 Metamyelocytes Hypochromia Platelet Estimate Polychromasia Poikilocytosis Anisocytosis Microcytosis Macrocytosis PT with INR INR D-Dimer Cancelled Puncture Site ABG pH ABG pCO2 at Pt Temp ABG pO2 at Pt Temp ABG HCO3 ABG O2 Sat (Measured) ABG O2 Content ABG Base Excess Jordan Test Carboxyhemoglobin Methemoglobin O2 Delivery Device Oxygen Flow Rate Sodium Cancelled Potassium Cancelled Chloride Cancelled Carbon Dioxide Cancelled Anion Gap Cancelled BUN Cancelled Creatinine Cancelled Creat Clearance w eGFR Cancelled Random Glucose Cancelled Calcium Cancelled Phosphorus Magnesium Total Bilirubin Cancelled AST Cancelled ALT Cancelled Alkaline Phosphatase Cancelled Creatine Kinase Cancelled Creatine Kinase Index CK-MB (CK-2) Troponin I Cancelled B-Natriuretic Peptide Total Protein Cancelled Albumin Cancelled Triglycerides Cholesterol Total LDL Cholesterol HDL Cholesterol TSH Cancelled Urine Color Urine Appearance Urine pH Ur Specific [place]itt Urine Protein Urine Glucose (UA) Urine Ketones Urine Blood Urine Nitrite Urine Bilirubin Urine Urobilinogen Ur Leukocyte Esterase Urine WBC (Auto) Urine RBC (Auto) Influenza A (Rapid) Influenza B (Rapid) RSV Rapid 02/25/18 02/25/18 02/25/18 03:00 04:41 04:41 WBC RBC Hgb Hct MCV MCH MCHC RDW Plt Count MPV Absolute Neuts (auto) Total Counted Neutrophils % Neutrophils % (Manual) Band Neutrophils % Lymphocytes % Lymphocytes % (Manual) Monocytes % Monocytes % (Manual) Eosinophils % Eosinophils % (Manual) Basophils % Basophils % (Manual) Myelocytes % (Man) Promyelocytes % (Man) Blast Cells % (Manual) Nucleated RBC % Metamyelocytes Hypochromia Platelet Estimate Polychromasia Poikilocytosis Anisocytosis Microcytosis Macrocytosis PT with INR INR D-Dimer 351 Puncture Site ABG pH ABG pCO2 at Pt Temp ABG pO2 at Pt Temp ABG HCO3 ABG O2 Sat (Measured) ABG O2 Content ABG Base Excess Jordan Test Carboxyhemoglobin Methemoglobin O2 Delivery Device Oxygen Flow Rate Sodium 137 Potassium 4.2 Chloride 105 Carbon Dioxide 25 Anion Gap 8 BUN 28 H Creatinine 0.8 Creat Clearance w eGFR > 60 Random Glucose 162 H Calcium 8.4 L Phosphorus Magnesium Total Bilirubin 0.2 AST 15 ALT 27 Alkaline Phosphatase 65 Creatine Kinase 159 Creatine Kinase Index 0.6 CK-MB (CK-2) < 1.0 Troponin I < 0.02 B-Natriuretic Peptide Cancelled 205.4 H Total Protein 6.5 Albumin 3.0 L Triglycerides Cholesterol Total LDL Cholesterol HDL Cholesterol TSH 0.57 D Urine Color Urine Appearance Urine pH Ur Specific [place] Urine Protein Urine Glucose (UA) Urine Ketones Urine Blood Urine Nitrite Urine Bilirubin Urine Urobilinogen Ur Leukocyte Esterase Urine WBC (Auto) Urine RBC (Auto) Influenza A (Rapid) Influenza B (Rapid) RSV Rapid 02/25/18 02/25/18 02/25/18 06:07 06:07 06:20 WBC RBC Hgb Hct MCV MCH MCHC RDW Plt Count MPV Absolute Neuts (auto) Total Counted Neutrophils % Neutrophils % (Manual) Band Neutrophils % Lymphocytes % Lymphocytes % (Manual) Monocytes % Monocytes % (Manual) Eosinophils % Eosinophils % (Manual) Basophils % Basophils % (Manual) Myelocytes % (Man) Promyelocytes % (Man) Blast Cells % (Manual) Nucleated RBC % Metamyelocytes Hypochromia Platelet Estimate Polychromasia Poikilocytosis Anisocytosis Microcytosis Macrocytosis PT with INR INR D-Dimer Puncture Site Left radial ABG pH 7.42 ABG pCO2 at Pt Temp 36.6 ABG pO2 at Pt Temp 69.2 L ABG HCO3 23.5 ABG O2 Sat (Measured) 93.0 ABG O2 Content 15.6 ABG Base Excess -0.1 Jordan Test Positive Carboxyhemoglobin 0.6 Methemoglobin 0.3 L O2 Delivery Device Room air Oxygen Flow Rate 21% Sodium Potassium Chloride Carbon Dioxide Anion Gap BUN Creatinine Creat Clearance w eGFR Random Glucose Calcium Phosphorus Magnesium Total Bilirubin AST ALT Alkaline Phosphatase Creatine Kinase Creatine Kinase Index CK-MB (CK-2) Troponin I B-Natriuretic Peptide Total Protein Albumin Triglycerides Cholesterol Total LDL Cholesterol HDL Cholesterol TSH Urine Color Urine Appearance Urine pH Ur Specific [place] Urine Protein Urine Glucose (UA) Urine Ketones Urine Blood Urine Nitrite Urine Bilirubin Urine Urobilinogen Ur Leukocyte Esterase Urine WBC (Auto) Urine RBC (Auto) Influenza A (Rapid) Negative Influenza B (Rapid) Negative RSV Rapid Negative 02/25/18 02/25/18 02/26/18 10:28 23:08 06:30 WBC 7.0 8.4 RBC 3.95 L 3.78 L Hgb 12.7 12.4 Hct 35.9 35.3 L MCV 91.0 93.4 MCH 32.1 32.8 MCHC 35.3 35.1 RDW 14.0 14.2 Plt Count 483 H 499 H MPV 7.9 8.2 Absolute Neuts (auto) 6.7 Total Counted Neutrophils % 80.3 D Neutrophils % (Manual) 79.0 Band Neutrophils % 1.0 Lymphocytes % 15.2 D Lymphocytes % (Manual) 18.0 Monocytes % 4.4 Monocytes % (Manual) 1 L D Eosinophils % 0.0 Eosinophils % (Manual) 0.0 Basophils % 0.1 Basophils % (Manual) 0.0 Myelocytes % (Man) 0 Promyelocytes % (Man) 0 Blast Cells % (Manual) 0 Nucleated RBC % 0 Metamyelocytes 1 Hypochromia 0 Platelet Estimate Increased Polychromasia 0 Poikilocytosis 0 Anisocytosis 1+ Microcytosis 0 Macrocytosis 1+ PT with INR INR D-Dimer Puncture Site ABG pH ABG pCO2 at Pt Temp ABG pO2 at Pt Temp ABG HCO3 ABG O2 Sat (Measured) ABG O2 Content ABG Base Excess Jordan Test Carboxyhemoglobin Methemoglobin O2 Delivery Device Oxygen Flow Rate Sodium Potassium Chloride Carbon Dioxide Anion Gap BUN Creatinine Creat Clearance w eGFR Random Glucose Calcium Phosphorus Magnesium Total Bilirubin AST ALT Alkaline Phosphatase Creatine Kinase Creatine Kinase Index CK-MB (CK-2) Troponin I B-Natriuretic Peptide Total Protein Albumin Triglycerides Cholesterol Total LDL Cholesterol HDL Cholesterol TSH Urine Color Ltyellow Urine Appearance Clear Urine pH 6.0 Ur Specific Merritt 1.020 Urine Protein Negative Urine Glucose (UA) Negative Urine Ketones Trace H Urine Blood 1+ H Urine Nitrite Negative Urine Bilirubin Negative Urine Urobilinogen Negative Ur Leukocyte Esterase Negative Urine WBC (Auto) <1 Urine RBC (Auto) 1 Influenza A (Rapid) Influenza B (Rapid) RSV Rapid 02/26/18 02/26/18 02/26/18 06:30 06:30 12:05 WBC RBC Hgb Hct MCV MCH MCHC RDW Plt Count MPV Absolute Neuts (auto) Total Counted Neutrophils % Neutrophils % (Manual) Band Neutrophils % Lymphocytes % Lymphocytes % (Manual) Monocytes % Monocytes % (Manual) Eosinophils % Eosinophils % (Manual) Basophils % Basophils % (Manual) Myelocytes % (Man) Promyelocytes % (Man) Blast Cells % (Manual) Nucleated RBC % Metamyelocytes Hypochromia Platelet Estimate Polychromasia Poikilocytosis Anisocytosis Microcytosis Macrocytosis PT with INR 12.50 INR 1.06 D-Dimer Puncture Site ABG pH ABG pCO2 at Pt Temp ABG pO2 at Pt Temp ABG HCO3 ABG O2 Sat (Measured) ABG O2 Content ABG Base Excess Jordan Test Carboxyhemoglobin Methemoglobin O2 Delivery Device Oxygen Flow Rate Sodium 138 140 Potassium 5.3 H 4.6 Chloride 105 105 Carbon Dioxide 28 29 Anion Gap 5 L 6 L BUN 19 H 21 H Creatinine 0.8 0.7 Creat Clearance w eGFR > 60 > 60 Random Glucose 131 H 108 H Calcium 8.0 L 8.4 L Phosphorus 4.2 Magnesium 2.8 H Total Bilirubin 0.2 AST 10 L ALT 22 Alkaline Phosphatase 59 Creatine Kinase Creatine Kinase Index CK-MB (CK-2) Troponin I B-Natriuretic Peptide Total Protein 6.2 L Albumin 2.9 L Triglycerides 75 Cholesterol 229 H Total LDL Cholesterol 155 H HDL Cholesterol 44 TSH Urine Color Urine Appearance Urine pH Ur Specific [place] Urine Protein Urine Glucose (UA) Urine Ketones Urine Blood Urine Nitrite Urine Bilirubin Urine Urobilinogen Ur Leukocyte Esterase Urine WBC (Auto) Urine RBC (Auto) Influenza A (Rapid) Influenza B (Rapid) RSV Rapid Current Medications Generic Name Dose Route Start Last Admin Trade Name Freq PRN Reason Stop Dose Admin Albuterol Sulfate 1 amp 02/26/18 08:45 Ventolin 0.083% Nebulizer Soln - NEB Q4H PRN SHORT OF BREATH/WHEEZING Albuterol/Ipratropium 1 amp 02/25/18 12:00 02/26/18 11:51 Duoneb - NEB 1 amp RQID [facility] Administration Atenolol 50 mg 02/25/18 10:00 02/26/18 10:07 Tenormin - PO 50 mg DAILY [facility] Administration Divalproex Sodium 1,000 mg 02/26/18 13:55 Depakote - PO BID [facility] Enoxaparin Sodium 40 mg 02/25/18 10:00 02/26/18 10:08 Lovenox - SQ 40 mg DAILY [facility] Administration Guaifenesin/Codeine Phosphate 10 ml 02/26/18 10:53 02/26/18 12:09 Robitussin Ac - PO 10 ml Q8H PRN Administration COUGH Ceftriaxone Sodium 1 gm/ 50 mls @ 100 mls/hr 02/25/18 10:00 02/26/18 10:13 Dextrose IVPB 100 mls/hr DAILY [facility] Administration Protocol Azithromycin 500 mg in 250 mls @ 250 mls/hr 02/26/18 10:00 02/26/18 13:23 Zithromax 500mg Ivpb (Pre-Docked) IVPB 250 mls/hr DAILY [facility] Administration Lacosamide 200 mg 02/26/18 14:34 Vimpat - PO BID [facility] Levothyroxine Sodium 75 mcg 02/25/18 10:15 02/26/18 06:43 Synthroid - PO 75 mcg DAILY@0700 [facility] Administration Methylprednisolone Sodium Succinate 40 mg 02/25/18 10:00 02/26/18 17:19 Solu-Medrol - IVPUSH 40 mg Q8H-IV [facility] Administration Mirtazapine 30 mg 02/25/18 22:00 02/25/18 22:40 Remeron - PO 30 mg HS [facility] Administration Pantoprazole Sodium 40 mg 02/26/18 13:00 02/26/18 13:37 Protonix - PO 40 mg DAILY [facility] Administration Zolpidem Tartrate 10 mg 02/26/18 10:54 Ambien - PO HS PRN INSOMNIA ASSESSMENT AND PLAN: This is a 62 year old man with a history of HTN, hyperlipidemia, hemorrhagic stroke with left sided weakness, seizure disorder, migraine MORGAN, chronic hypoxic respiratory faiulure, asthma, COPD, hypothyroidism, depression, anxiety, pancreatic cyst, kidney cyst, nephrolithiasis who presented to the ED with a cough and SOB. 1. Acute exacerbation of COPD/asthma secondary to pneumonia - Failed outpatient treatment with Augmentin, Prednisone - Continue SoluMedrol, ceftriaxone, Zithromax, DuoNeb, albuterol as needed - Oxygen to maintain saturation >90% - Add Robitussin for cough/congestion 2. Chronic hypoxic respiratory failure 3. HTN - Continue atenolol 4. Hyperlipidemia 5. Left sided weakness secondary to old hemorrhagic CVA 6. Seizure disorder - Continue Depakote, Vimpat 7. Hypothyroidism - Continue Synthroid 8. Depression with anxiety - Continue Remeron
[2018-02-26] MEDS ORDERED: PT OWN MED DRAWER 7, Y5N ONE (21:16)
[2018-02-26] MEDS ORDERED: MIRTAZAPINE 15 MG TABLET (FP) ONE (21:16)
[2018-02-26] MEDS: ZOLPIDEM TARTRATE 5 MG TABLET PO PRN (22:13)
[2018-02-26] MEDS: MIRTAZAPINE 30 MG TABLET (FP) PO SCH (22:13)
[2018-02-27] MEDS: methylPREDNISolone NA SUCC 40 MG/1 ML VIAL IVPUSH SCH ×3 (01:51→18:43)
[2018-02-27] MEDS: LEVOTHYROXINE NA 75 MCG TABLET (FP) PO SCH (06:29)
[2018-02-27] MEDS ORDERED: PT OWN MED DRAWER 7, Y5N ONE ×3 (07:07→20:42)
[2018-02-27 07:43] LABS: HEMATOCRIT 35.8 % (35.4-49); HEMOGLOBIN 12.2 GM/dL (11.7-16.9); MCH 31.6 pg (25.7-33.7); MEAN PLT VOLUME 8.1 fl (7.5-11.1); PLATELET COUNT 515 K/MM3 (134-434); RBC 3.85 M/mm3 (4.00-5.60); RDW 14.4 % (11.9-15.9)
[2018-02-27] MEDS: ALBUTEROL SO4 2.5/IPRATROPIUM 0.5 INH SOL 3 ML VIAL.NEB. NEB SCH ×4 (07:56→20:52)
[2018-02-27 08:09] LABS: ALBUMIN 2.7 g/dl (3.4-5.0); ALK PHOS 54 U/L (45-117); ANION GAP 7 MMOL/L (8-16); BILIRUBIN,TOTAL 0.2 mg/dL (0.2-1); BLOOD UREA NITROGEN 21 mg/dL (7-18); CALCIUM 8.3 mg/dL (8.5-10.1); CHLORIDE 103 mmol/L (98-107); CO2 29 mmol/L (21-32); CREATININE 0.8 mg/dL (0.55-1.3); GLUCOSE,RANDOM 120 mg/dL (74-106); MAGNESIUM 2.6 mg/dL (1.8-2.4); PHOSPHOROUS 4.3 mg/dL (2.5-4.9); POTASSIUM 5.4 mmol/L (3.5-5.1); SGOT/AST 9 U/L (15-37); SGPT/ALT 18 U/L (13-61); SODIUM 138 mmol/L (136-145); TOT PROT 5.8 g/dl (6.4-8.2)
[2018-02-27] MEDS ORDERED: cefTRIAXone SODIUM 1 GM VIAL ONE (09:45)
[2018-02-27] MEDS ORDERED: DEXTROSE 5%-WATER - 50 ML IVPB ONE (09:45)
[2018-02-27] MEDS: PANTOPRAZOLE 40 MG TABLET (FP) PO SCH (10:05)
[2018-02-27] MEDS: CEFTRIAXONE 1 GM in DEXTROSE 5%-WATER - 50 ML IVPB SCH (10:05)
[2018-02-27] MEDS: guaiFENesin/CODEINE 10 ML UNIT-DOSE CUPS PO PRN ×2 (10:05→18:45)
[2018-02-27] MEDS: ATENOLOL 50 MG TABLET (FP) PO SCH (10:05)
[2018-02-27] MEDS: ENOXAPARIN NA (PORCINE) 40 MG/0.4 ML DISP.SYRIN SQ SCH (10:05)
[2018-02-27] MEDS: AZITHROMYCIN IVPB 500 MG/250 ML BAG IVPB SCH (10:06)
[2018-02-27] MEDS: DIVALPROEX SODIUM 500 MG TABLET E.C. PO SCH ×2 (10:07→21:40)
[2018-02-27] MEDS: LACOSAMIDE 50 MG TABLET PO SCH ×2 (10:34→21:40)
--- NOTE | 2018-02-27 15:22 | PN ---
Progress Note, Physician History of Present Illness: PULMONARY alert,feeling better,less dyspneic,+ cough - Current Medication List Current Medications: Active Medications Albuterol Sulfate (Ventolin 0.083% Nebulizer Soln -) 1 amp NEB Q4H PRN PRN Reason: SHORT OF BREATH/WHEEZING Albuterol/Ipratropium (Duoneb -) 1 amp NEB RQID [facility] Last Admin: 02/27/18 11:17 Dose: 1 amp Atenolol (Tenormin -) 50 mg PO DAILY [facility] Last Admin: 02/27/18 10:05 Dose: 50 mg Azithromycin (Zithromax -) 500 mg PO DAILY [facility] Stop: 03/02/18 10:01 Divalproex Sodium (Depakote -) 1,000 mg PO BID [facility] Last Admin: 02/27/18 10:07 Dose: 1,000 mg Enoxaparin Sodium (Lovenox -) 40 mg SQ DAILY [facility] Last Admin: 02/27/18 10:05 Dose: 40 mg Guaifenesin/Codeine Phosphate (Robitussin Ac -) 10 ml PO Q8H PRN PRN Reason: COUGH Last Admin: 02/27/18 10:05 Dose: 10 ml Ceftriaxone Sodium 1 gm/ (Dextrose) 50 mls @ 100 mls/hr IVPB DAILY [facility]; Protocol Last Admin: 02/27/18 10:05 Dose: 100 mls/hr Lacosamide (Vimpat -) 200 mg PO BID [facility] Last Admin: 02/27/18 10:34 Dose: 200 mg Levothyroxine Sodium (Synthroid -) 75 mcg PO DAILY@0700 [facility] Last Admin: 02/27/18 06:29 Dose: 75 mcg Methylprednisolone Sodium Succinate (Solu-Medrol -) 40 mg IVPUSH Q8H-IV [facility] Last Admin: 02/27/18 10:05 Dose: 40 mg Mirtazapine (Remeron -) 30 mg PO HS [facility] Last Admin: 02/26/18 22:13 Dose: 30 mg Pantoprazole Sodium (Protonix -) 40 mg PO DAILY [facility] Last Admin: 02/27/18 10:05 Dose: 40 mg Zolpidem Tartrate (Ambien -) 10 mg PO HS PRN PRN Reason: INSOMNIA Last Admin: 02/26/18 22:13 Dose: 10 mg - Objective Vital Signs: Vital Signs Temperature 97.9 F 02/27/18 06:00 Pulse Rate 68 02/27/18 06:00 Respiratory Rate 18 02/27/18 06:00 Blood Pressure 125/75 02/27/18 06:00 O2 Sat by Pulse Oximetry (%) 97 02/26/18 21:00 Constitutional: Yes: Well Nourished, Calm Eyes: Yes: WNL HENT: Yes: WNL Neck: Yes: WNL Cardiovascular: Yes: Regular Rate and Rhythm, S1, S2 Respiratory: Yes: Diminished, Rhonchi (few scattered rhonchi) Gastrointestinal: Yes: Normal Bowel Sounds, Soft Extremities: Yes: WNL Edema: No Labs: CBC, BMP 02/27/18 06:40 Problem List - Problems (1) Chronic hypoxemic respiratory failure Code(s): J96.11 - CHRONIC RESPIRATORY FAILURE WITH HYPOXIA (2) COPD with acute exacerbation Code(s): J44.1 - CHRONIC OBSTRUCTIVE PULMONARY DISEASE W (ACUTE) EXACERBATION (3) Hypothyroid Code(s): E03.9 - HYPOTHYROIDISM, UNSPECIFIED (4) Sleep apnea Code(s): G47.30 - SLEEP APNEA, UNSPECIFIED (5) H/O: CVA (cerebrovascular accident) Code(s): Z86.73 - PRSNL HX OF TIA (TIA), AND CEREB INFRC W/O RESID DEFICITS (6) Pneumonia Code(s): J18.9 - PNEUMONIA, UNSPECIFIED ORGANISM Assessment/Plan Problem List - Problems (1) COPD with acute exacerbation Code(s): J44.1 - CHRONIC OBSTRUCTIVE PULMONARY DISEASE W (ACUTE) EXACERBATION (2) Pneumonia Code(s): J18.9 - PNEUMONIA, UNSPECIFIED ORGANISM Assessment/Plan Acute COPD Exacerbation Pneumonia Chronic Hypoxic Respiratory Failure HTN Hyperlipidemia Hypothyroidism h/o CVA Seizure Disorder OSAS - IV medrol same dose,start taper in am - inhaled bronchodilators standing and PRN - O2 to keep SpO2 >90% - abx - outpt PFTs and f/u - DVT prophylaxis - Cough syrup PRN DR GARCIA
--- NOTE | 2018-02-27 15:49 | PN ---
Physical Exam: SUBJECTIVE: Patient seen and examined at bedside this morning. He is saturating well on 2L nasal canula. He endorses improvement of his shortness of breath, and cough still productive with whitish colored sputum. He denies subjective fevers, chills or night sweats overnight. Denies abdominal pain, nausea, vomiting. OBJECTIVE: Vital Signs Period Temp Pulse Resp BP Sys/Christensen Pulse Ox Last 24 Hr 97.8 F-98.1 F 68-79 18-18 103-128/56-75 97 GENERAL: The patient is awake, alert, and fully oriented, in no acute distress. Patient is on 2L nasal canula HEAD: Normal with no signs of trauma. EYES: PERRL, extraocular movements intact, sclera anicteric, conjunctiva clear. ENT: Oropharynx clear without exudates, moist mucous membranes. NECK: Supple without lymphadenopathy, or JVD LUNGS: Good inspiratory effort. Coarse crackles, inspiratory and end expiratory wheezes B/L. Patient is not using accessory muscles of respiration. HEART: Regular rate and rhythm, S1, S2 without murmur, rub or gallop. ABDOMEN: Soft, nontender to light and deep palpation, nondistended. Normoactive bowel sounds X4 quadrants. No guarding, no rebound tenderness. EXTREMITIES: 2+ radial and dorsalis pedis pulses B/L. Warm, well-perfused. No lower extremity edema B/L NEUROLOGICAL: CN II-XII grossly intact, however slight left-sided facial asymmetry with smile, and diminished left sided facial sensation noted. Strength 5/5 B/L upper extremities. Strength 4/5 left lower extremity. Strength 5/5 right lower extremity. Sensation diminished left upper and lower extremities. (Patient reports left sided exam findings are chronic and residual from prior CVA). PSYCH: Normal mood, normal affect upon my encounter today. SKIN: Warm, dry. Laboratory Results - last 24 hr 02/27/18 02/27/18 02/27/18 06:40 06:40 10:47 WBC 9.0 RBC 3.85 L Hgb 12.2 Hct 35.8 MCV 93.0 MCH 31.6 MCHC 34.0 RDW 14.4 Plt Count 515 H MPV 8.1 Sodium 138 Potassium 5.4 H 4.6 Chloride 103 Carbon Dioxide 29 Anion Gap 7 L BUN 21 H Creatinine 0.8 Creat Clearance w eGFR > 60 Random Glucose 120 H Calcium 8.3 L Phosphorus 4.3 Magnesium 2.6 H Total Bilirubin 0.2 AST 9 L ALT 18 Alkaline Phosphatase 54 Total Protein 5.8 L Albumin 2.7 L Active Medications Generic Name Dose Route Start Last Admin Trade Name Freq PRN Reason Stop Dose Admin Albuterol Sulfate 1 amp 02/26/18 08:45 Ventolin 0.083% Nebulizer Soln - NEB Q4H PRN SHORT OF BREATH/WHEEZING Albuterol/Ipratropium 1 amp 02/25/18 12:00 02/27/18 11:17 Duoneb - NEB 1 amp RQID DARRYN Administration Atenolol 50 mg 02/25/18 10:00 02/27/18 10:05 Tenormin - PO 50 mg DAILY DARRYN Administration Azithromycin 500 mg 02/28/18 10:00 Zithromax - PO 03/02/18 10:01 DAILY DARRYN Divalproex Sodium 1,000 mg 02/26/18 13:55 02/27/18 10:07 Depakote - PO 1,000 mg BID DARRYN Administration Enoxaparin Sodium 40 mg 02/25/18 10:00 02/27/18 10:05 Lovenox - SQ 40 mg DAILY DARRYN Administration Guaifenesin/Codeine Phosphate 10 ml 02/26/18 10:53 02/27/18 10:05 Robitussin Ac - PO 10 ml Q8H PRN Administration COUGH Ceftriaxone Sodium 1 gm/ 50 mls @ 100 mls/hr 02/25/18 10:00 02/27/18 10:05 Dextrose IVPB 100 mls/hr DAILY DARRYN Administration Protocol Lacosamide 200 mg 02/26/18 14:34 02/27/18 10:34 Vimpat - PO 200 mg BID DARRYN Administration Levothyroxine Sodium 75 mcg 02/25/18 10:15 02/27/18 06:29 Synthroid - PO 75 mcg DAILY@0700 DARRYN Administration Methylprednisolone Sodium Succinate 40 mg 02/25/18 10:00 02/27/18 10:05 Solu-Medrol - IVPUSH 40 mg Q8H-IV DARRYN Administration Mirtazapine 30 mg 02/25/18 22:00 02/26/18 22:13 Remeron - PO 30 mg HS DARRYN Administration Pantoprazole Sodium 40 mg 02/26/18 13:00 02/27/18 10:05 Protonix - PO 40 mg DAILY DARRYN Administration Zolpidem Tartrate 10 mg 02/26/18 10:54 02/26/18 22:13 Ambien - PO 10 mg HS PRN Administration INSOMNIA IMAGING Chest X-ray: Segmental left lower lobe infiltrate CT chest: Patchy left lower lobe, lingula, and left upper lobe opacities, suggestive of pneumonitis. Atherosclerotic coronary calcifications. ASSESSMENT/PLAN: Patient is a 62 year old male with history of intermittent asthma, COPD (on home oxygen), seizure disorder, prior CVA with residual left sided weakness, hypothyroidism, hypertension presents with complaint of shortness of breath with productive cough for past nine days. COPD, asthma exacerbation -Likely secondary to pneumonia. -Duonebs 1 amp QID -Albuterol nebulizer Q4H PRN -Methylprednisone 40mg IV Q8H. Begin taper tomorrow. -Azithromycin 500mg PO daily (day #3) -Centriaxone 1 gram IV daily (day #3) -Urine negative for legionella antigens -Blood cultures negative for growth at 48 hours. -Robitussin AC 10mL PO Q8H -Pulmonoloogy consult (Dr. Moyer) appreciated. Hypertension -Atenolol 50mg PO daily Hypothyroidism -Synthroid 75mcg daily Seizure disorder -Depakote 1000mg PO BID -Vimpat 200mg PO BID History of prior CVA -Residual, chronic left sided weakness, and diminished sensation. Anxiety, depression -Remeron 30mg PO HS Insomnia -Zolpidem 10mg PO HS PRN FEN -No IV fluids indicated -Follow CMP -Sodium controlled diet Prophylaxis -Lovenox 40mg subq daily -Protonix 40mg PO daily Disposition -Continue care in medical-surgical floor Fall precautions Visit type - Emergency Visit Emergency Visit: Yes ED Registration Date: 02/25/18 Care time: The patient presented to the Emergency Department on the above date and was hospitalized for further evaluation of their emergent condition. - New Patient This patient is new to me today: No - Critical Care Critical Care patient: No - Discharge Referral Referred to [facility] No
--- NOTE | 2018-02-27 18:45 | PN ---
Teaching Attending Note Name of Resident: Jean Pierre Urrutia ATTENDING PHYSICIAN STATEMENT I saw and evaluated the patient. I reviewed the resident's note and discussed the case with the resident. I agree with the resident's findings and plan as documented. SUBJECTIVE: Patient complains of cough. He is starting to feel better. OBJECTIVE: Vital Signs Period Temp Pulse Resp BP Sys/Christensen Pulse Ox Last 24 Hr 97.8 F-98.6 F 68-79 18-18 109-128/57-75 97-97 HEART: S1S2, RRR LUNGS: Bilateral rhonchi. No wheezes ABDOMEN: Soft, non-tender, non-distended, normal BS EXTREMITIES: No edema Laboratory Results - last 24 hr 02/27/18 02/27/18 02/27/18 06:40 06:40 10:47 WBC 9.0 RBC 3.85 L Hgb 12.2 Hct 35.8 MCV 93.0 MCH 31.6 MCHC 34.0 RDW 14.4 Plt Count 515 H MPV 8.1 Sodium 138 Potassium 5.4 H 4.6 Chloride 103 Carbon Dioxide 29 Anion Gap 7 L BUN 21 H Creatinine 0.8 Creat Clearance w eGFR > 60 Random Glucose 120 H Calcium 8.3 L Phosphorus 4.3 Magnesium 2.6 H Total Bilirubin 0.2 AST 9 L ALT 18 Alkaline Phosphatase 54 Total Protein 5.8 L Albumin 2.7 L Current Medications Generic Name Dose Route Start Last Admin Trade Name Freq PRN Reason Stop Dose Admin Albuterol Sulfate 1 amp 02/26/18 08:45 Ventolin 0.083% Nebulizer Soln - NEB Q4H PRN SHORT OF BREATH/WHEEZING Albuterol/Ipratropium 1 amp 02/25/18 12:00 02/27/18 16:29 Duoneb - NEB 1 amp RQID DARRYN Administration Atenolol 50 mg 02/25/18 10:00 02/27/18 10:05 Tenormin - PO 50 mg DAILY DARRYN Administration Azithromycin 500 mg 02/28/18 10:00 Zithromax - PO 03/02/18 10:01 DAILY DARRYN Divalproex Sodium 1,000 mg 02/26/18 13:55 02/27/18 10:07 Depakote - PO 1,000 mg BID DARRYN Administration Enoxaparin Sodium 40 mg 02/25/18 10:00 02/27/18 10:05 Lovenox - SQ 40 mg DAILY DARRYN Administration Guaifenesin/Codeine Phosphate 10 ml 02/26/18 10:53 02/27/18 10:05 Robitussin Ac - PO 10 ml Q8H PRN Administration COUGH Ceftriaxone Sodium 1 gm/ 50 mls @ 100 mls/hr 02/25/18 10:00 02/27/18 10:05 Dextrose IVPB 100 mls/hr DAILY DARRYN Administration Protocol Lacosamide 200 mg 02/26/18 14:34 02/27/18 10:34 Vimpat - PO 200 mg BID DARRYN Administration Levothyroxine Sodium 75 mcg 02/25/18 10:15 02/27/18 06:29 Synthroid - PO 75 mcg DAILY@0700 DARRYN Administration Methylprednisolone Sodium Succinate 40 mg 02/25/18 10:00 02/27/18 10:05 Solu-Medrol - IVPUSH 40 mg Q8H-IV DARRYN Administration Mirtazapine 30 mg 02/25/18 22:00 02/26/18 22:13 Remeron - PO 30 mg HS DARRYN Administration Pantoprazole Sodium 40 mg 02/26/18 13:00 02/27/18 10:05 Protonix - PO 40 mg DAILY DARRYN Administration Zolpidem Tartrate 10 mg 02/26/18 10:54 02/26/18 22:13 Ambien - PO 10 mg HS PRN Administration INSOMNIA ASSESSMENT AND PLAN: This is a 62 year old man with a history of HTN, hyperlipidemia, hemorrhagic stroke with left sided weakness, seizure disorder, migraine MORGAN, chronic hypoxic respiratory faiulure, asthma, COPD, hypothyroidism, depression, anxiety, pancreatic cyst, kidney cyst, nephrolithiasis who presented to the ED with a cough and SOB. 1. Acute exacerbation of COPD/asthma secondary to pneumonia - Failed outpatient treatment with Augmentin, Prednisone - Continue SoluMedrol, ceftriaxone, Zithromax, DuoNeb, albuterol as needed, Robitussin AC as needed - Oxygen to maintain saturation >90% 2. Chronic hypoxic respiratory failure 3. HTN - Continue atenolol 4. Hyperlipidemia 5. Left sided weakness secondary to old hemorrhagic CVA 6. Seizure disorder - Continue Depakote, Vimpat 7. Hypothyroidism - Continue Synthroid 8. Depression with anxiety - Continue Remeron
[2018-02-27] MEDS ORDERED: MIRTAZAPINE 15 MG TABLET (FP) ONE (20:42)
[2018-02-27] MEDS: MIRTAZAPINE 30 MG TABLET (FP) PO SCH (21:40)
[2018-02-27] MEDS: ZOLPIDEM TARTRATE 5 MG TABLET PO PRN (21:40)
[2018-02-28] MEDS: methylPREDNISolone NA SUCC 40 MG/1 ML VIAL IVPUSH SCH ×3 (02:13→18:08)
[2018-02-28] MEDS: guaiFENesin/CODEINE 10 ML UNIT-DOSE CUPS PO PRN ×3 (02:13→22:23)
[2018-02-28] MEDS: LEVOTHYROXINE NA 75 MCG TABLET (FP) PO SCH (06:10)
[2018-02-28 08:13] LABS: HEMATOCRIT 38.5 % (35.4-49); HEMOGLOBIN 12.7 GM/dL (11.7-16.9); MCH 29.7 pg (25.7-33.7); MEAN PLT VOLUME 8.1 fl (7.5-11.1); PLATELET COUNT 507 K/MM3 (134-434); RBC 4.28 M/mm3 (4.00-5.60); RDW 14.2 % (11.9-15.9); WHITE BLOOD COUNT 10.9 K/mm3 (4.0-10.0)
[2018-02-28] MEDS: ALBUTEROL SO4 2.5/IPRATROPIUM 0.5 INH SOL 3 ML VIAL.NEB. NEB SCH ×4 (08:13→20:15)
[2018-02-28 09:17] LABS: ALBUMIN 2.8 g/dl (3.4-5.0); ALK PHOS 54 U/L (45-117); ANION GAP 9 MMOL/L (8-16); BILIRUBIN,TOTAL 0.3 mg/dL (0.2-1); BLOOD UREA NITROGEN 19 mg/dL (7-18); CALCIUM 8.4 mg/dL (8.5-10.1); CHLORIDE 100 mmol/L (98-107); CO2 26 mmol/L (21-32); CREATININE 0.8 mg/dL (0.55-1.3); GLUCOSE,RANDOM 119 mg/dL (74-106); MAGNESIUM 2.6 mg/dL (1.8-2.4); PHOSPHOROUS 4.6 mg/dL (2.5-4.9); POTASSIUM 5.2 mmol/L (3.5-5.1); SGOT/AST 7 U/L (15-37); SGPT/ALT 19 U/L (13-61); SODIUM 135 mmol/L (136-145); TOT PROT 5.9 g/dl (6.4-8.2)
[2018-02-28] MEDS ORDERED: DEXTROSE 5%-WATER - 50 ML IVPB ONE (10:20)
[2018-02-28] MEDS ORDERED: cefTRIAXone SODIUM 1 GM VIAL ONE (10:20)
[2018-02-28] MEDS: ENOXAPARIN NA (PORCINE) 40 MG/0.4 ML DISP.SYRIN SQ SCH (10:28)
[2018-02-28] MEDS: AZITHROMYCIN 250 MG TABLET PO SCH (10:33)
[2018-02-28] MEDS: PANTOPRAZOLE 40 MG TABLET (FP) PO SCH (10:33)
[2018-02-28] MEDS: ATENOLOL 50 MG TABLET (FP) PO SCH (10:33)
--- NOTE | 2018-02-28 10:34 | PN ---
Progress Note (short form) - Note Progress Note: Patient is still have severe cough and sob no distress no change from yesterday vs Vital Signs Period Temp Pulse Resp BP Sys/Christensen Pulse Ox Last 24 Hr 97.6 F-98.6 F 54-77 18-18 128-158/69-75 98 Heent no cyanosis neck supple lung zandra wheezing exp and insp abd soft non tender and normal bs ext no edema neuro alert and awake Laboratory Results - last 24 hr 02/27/18 02/28/18 02/28/18 10:47 07:00 07:00 WBC 10.9 H RBC 4.28 Hgb 12.7 Hct 38.5 MCV 90.0 MCH 29.7 MCHC 33.0 RDW 14.2 Plt Count 507 H MPV 8.1 Sodium 135 L Potassium 4.6 5.2 H Chloride 100 Carbon Dioxide 26 Anion Gap 9 BUN 19 H Creatinine 0.8 Creat Clearance w eGFR > 60 Random Glucose 119 H Calcium 8.4 L Phosphorus 4.6 Magnesium 2.6 H Total Bilirubin 0.3 AST 7 L ALT 19 Alkaline Phosphatase 54 Total Protein 5.9 L Albumin 2.8 L Current Medications Albuterol Sulfate (Ventolin 0.083% Nebulizer Soln -) 1 amp NEB Q4H PRN PRN Reason: SHORT OF BREATH/WHEEZING Albuterol/Ipratropium (Duoneb -) 1 amp NEB RQID [facility] Last Admin: 02/28/18 08:13 Dose: 1 amp Atenolol (Tenormin -) 50 mg PO DAILY [facility] Last Admin: 02/27/18 10:05 Dose: 50 mg Azithromycin (Zithromax -) 500 mg PO DAILY [facility] Stop: 03/02/18 10:01 Divalproex Sodium (Depakote -) 1,000 mg PO BID [facility] Last Admin: 02/27/18 21:40 Dose: 1,000 mg Enoxaparin Sodium (Lovenox -) 40 mg SQ DAILY [facility] Last Admin: 02/27/18 10:05 Dose: 40 mg Guaifenesin/Codeine Phosphate (Robitussin Ac -) 10 ml PO Q8H PRN PRN Reason: COUGH Last Admin: 02/28/18 02:13 Dose: 10 ml Ceftriaxone Sodium 1 gm/ (Dextrose) 50 mls @ 100 mls/hr IVPB DAILY [facility]; Protocol Last Admin: 02/27/18 10:05 Dose: 100 mls/hr Lacosamide (Vimpat -) 200 mg PO BID DARRYN Last Admin: 02/27/18 21:40 Dose: 200 mg Levothyroxine Sodium (Synthroid -) 75 mcg PO DAILY@0700 DARRYN Last Admin: 02/28/18 06:10 Dose: 75 mcg Methylprednisolone Sodium Succinate (Solu-Medrol -) 40 mg IVPUSH Q8H-IV DARRYN Last Admin: 02/28/18 02:13 Dose: 40 mg Mirtazapine (Remeron -) 30 mg PO HS DARRYN Last Admin: 02/27/18 21:40 Dose: 30 mg Pantoprazole Sodium (Protonix -) 40 mg PO DAILY [facility] Last Admin: 02/27/18 10:05 Dose: 40 mg Zolpidem Tartrate (Ambien -) 10 mg PO HS PRN PRN Reason: INSOMNIA Last Admin: 02/27/18 21:40 Dose: 10 mg ASSESSMENT AND PLAN: This is a 62 year old man with a history of HTN, hyperlipidemia, hemorrhagic stroke with left sided weakness, seizure disorder, migraine MORGAN, chronic hypoxic respiratory faiulure, asthma, COPD, hypothyroidism, depression, anxiety, pancreatic cyst, kidney cyst, nephrolithiasis who presented to the ED with a cough and SOB. 1. Acute exacerbation of COPD/asthma secondary to pneumonia - still have severe wheezing and will continue current dose of solumedrol - Continue SoluMedrol, ceftriaxone, Zithromax, DuoNeb, albuterol as needed, Robitussin AC as needed 2. Chronic hypoxic respiratory failure 3. HTN - Continue atenolol] - if continue to wheez tomorrow will change meds for htn 4. Hyperlipidemia 5. Left sided weakness secondary to old hemorrhagic CVA 6. Seizure disorder - Continue Depakote, Vimpat 7. Hypothyroidism - Continue Synthroid 8. Depression with anxiety - Continue Remeron
[2018-02-28] MEDS: LACOSAMIDE 50 MG TABLET PO SCH ×2 (10:35→21:09)
[2018-02-28] MEDS: CEFTRIAXONE 1 GM in DEXTROSE 5%-WATER - 50 ML IVPB SCH (10:38)
[2018-02-28] MEDS ORDERED: PT OWN MED DRAWER 7, Y5N ONE (10:42)
[2018-02-28] MEDS: DIVALPROEX SODIUM 500 MG TABLET E.C. PO SCH ×2 (10:42→21:08)
--- NOTE | 2018-02-28 12:59 | PN ---
Progress Note, Physician History of Present Illness: PULMONARY STILL C/O DYSPNEA, COUGH,CONGESTION - Current Medication List Current Medications: Active Medications Albuterol Sulfate (Ventolin 0.083% Nebulizer Soln -) 1 amp NEB Q4H PRN PRN Reason: SHORT OF BREATH/WHEEZING Albuterol/Ipratropium (Duoneb -) 1 amp NEB RQID [facility] Last Admin: 02/28/18 12:12 Dose: 1 amp Atenolol (Tenormin -) 50 mg PO DAILY [facility] Last Admin: 02/28/18 10:33 Dose: 50 mg Azithromycin (Zithromax -) 500 mg PO DAILY [facility] Stop: 03/02/18 10:01 Last Admin: 02/28/18 10:33 Dose: 500 mg Divalproex Sodium (Depakote -) 1,000 mg PO BID [facility] Last Admin: 02/28/18 10:42 Dose: 1,000 mg Enoxaparin Sodium (Lovenox -) 40 mg SQ DAILY [facility] Last Admin: 02/28/18 10:28 Dose: 40 mg Guaifenesin/Codeine Phosphate (Robitussin Ac -) 10 ml PO Q8H PRN PRN Reason: COUGH Last Admin: 02/28/18 10:38 Dose: 10 ml Ceftriaxone Sodium 1 gm/ (Dextrose) 50 mls @ 100 mls/hr IVPB DAILY [facility]; Protocol Last Admin: 02/28/18 10:38 Dose: 100 mls/hr Lacosamide (Vimpat -) 200 mg PO BID [facility] Last Admin: 02/28/18 10:35 Dose: 200 mg Levothyroxine Sodium (Synthroid -) 75 mcg PO DAILY@0700 [facility] Last Admin: 02/28/18 06:10 Dose: 75 mcg Methylprednisolone Sodium Succinate (Solu-Medrol -) 40 mg IVPUSH Q8H-IV [facility] Last Admin: 02/28/18 10:28 Dose: 40 mg Mirtazapine (Remeron -) 30 mg PO HS [facility] Last Admin: 02/27/18 21:40 Dose: 30 mg Pantoprazole Sodium (Protonix -) 40 mg PO DAILY [facility] Last Admin: 02/28/18 10:33 Dose: 40 mg Zolpidem Tartrate (Ambien -) 10 mg PO HS PRN PRN Reason: INSOMNIA Last Admin: 02/27/18 21:40 Dose: 10 mg - Objective Vital Signs: Vital Signs Temperature 98.2 F 02/28/18 06:00 Pulse Rate 56 L 02/28/18 06:00 Respiratory Rate 18 02/28/18 06:00 Blood Pressure 158/75 02/28/18 06:00 O2 Sat by Pulse Oximetry (%) 98 02/27/18 21:00 Constitutional: Yes: Well Nourished, Calm Eyes: Yes: WNL HENT: Yes: WNL Neck: Yes: WNL Cardiovascular: Yes: Regular Rate and Rhythm, S1, S2 Respiratory: Yes: Rhonchi, Wheezes (SCATTERED MADYSON WHEEZES AND RHONCHI) Gastrointestinal: Yes: Normal Bowel Sounds, Soft Extremities: Yes: WNL Edema: No Labs: CBC, BMP 02/28/18 07:00 02/28/18 07:00 INR, PTT INR 1.06 (0.83-1.09) 02/26/18 06:30 Problem List - Problems (1) Chronic hypoxemic respiratory failure Code(s): J96.11 - CHRONIC RESPIRATORY FAILURE WITH HYPOXIA (2) COPD with acute exacerbation Code(s): J44.1 - CHRONIC OBSTRUCTIVE PULMONARY DISEASE W (ACUTE) EXACERBATION (3) Hypothyroid Code(s): E03.9 - HYPOTHYROIDISM, UNSPECIFIED (4) Sleep apnea Code(s): G47.30 - SLEEP APNEA, UNSPECIFIED (5) H/O: CVA (cerebrovascular accident) Code(s): Z86.73 - PRSNL HX OF TIA (TIA), AND CEREB INFRC W/O RESID DEFICITS (6) Pneumonia Code(s): J18.9 - PNEUMONIA, UNSPECIFIED ORGANISM Assessment/Plan Problem List - Problems (1) COPD with acute exacerbation Code(s): J44.1 - CHRONIC OBSTRUCTIVE PULMONARY DISEASE W (ACUTE) EXACERBATION (2) Pneumonia Code(s): J18.9 - PNEUMONIA, UNSPECIFIED ORGANISM Assessment/Plan Acute COPD Exacerbation Pneumonia Chronic Hypoxic Respiratory Failure HTN Hyperlipidemia Hypothyroidism h/o CVA Seizure Disorder OSAS - IV medrol same dose - inhaled bronchodilators standing and PRN - O2 to keep SpO2 >90% - abx - outpt PFTs and f/u - DVT prophylaxis - Cough syrup PRN DR GARCIA
[2018-02-28] MEDS ORDERED: MIRTAZAPINE 15 MG TABLET (FP) ONE (20:50)
[2018-02-28] MEDS: ZOLPIDEM TARTRATE 5 MG TABLET PO PRN (21:09)
[2018-02-28] MEDS: MIRTAZAPINE 30 MG TABLET (FP) PO SCH (21:09)
[2018-03-01] MEDS: methylPREDNISolone NA SUCC 40 MG/1 ML VIAL IVPUSH SCH ×3 (02:02→18:06)
[2018-03-01] MEDS: LEVOTHYROXINE NA 75 MCG TABLET (FP) PO SCH (06:04)
[2018-03-01] MEDS: ALBUTEROL SO4 2.5/IPRATROPIUM 0.5 INH SOL 3 ML VIAL.NEB. NEB SCH ×4 (07:50→20:20)
[2018-03-01] MEDS ORDERED: PT OWN MED DRAWER 7, Y5N ONE ×2 (10:01→16:21)
[2018-03-01] MEDS ORDERED: cefTRIAXone SODIUM 1 GM VIAL ONE (10:01)
[2018-03-01] MEDS ORDERED: DEXTROSE 5%-WATER - 50 ML IVPB ONE (10:01)
[2018-03-01] MEDS: LACOSAMIDE 50 MG TABLET PO SCH ×2 (10:07→21:24)
[2018-03-01] MEDS: PANTOPRAZOLE 40 MG TABLET (FP) PO SCH (10:07)
[2018-03-01] MEDS: ATENOLOL 50 MG TABLET (FP) PO SCH (10:07)
[2018-03-01] MEDS: CEFTRIAXONE 1 GM in DEXTROSE 5%-WATER - 50 ML IVPB SCH (10:07)
[2018-03-01] MEDS: ENOXAPARIN NA (PORCINE) 40 MG/0.4 ML DISP.SYRIN SQ SCH (10:08)
[2018-03-01] MEDS: DIVALPROEX SODIUM 500 MG TABLET E.C. PO SCH ×2 (10:08→21:24)
[2018-03-01] MEDS ORDERED: ZOLPIDEM TARTRATE 5 MG TABLET PO PRN (12:07)
--- NOTE | 2018-03-01 12:08 | PN ---
Progress Note, Physician History of Present Illness: pulmonary alert,feeling better,less dyspneic - Current Medication List Current Medications: Active Medications Albuterol Sulfate (Ventolin 0.083% Nebulizer Soln -) 1 amp NEB Q4H PRN PRN Reason: SHORT OF BREATH/WHEEZING Albuterol/Ipratropium (Duoneb -) 1 amp NEB RQID [facility] Last Admin: 03/01/18 12:04 Dose: 1 amp Atenolol (Tenormin -) 50 mg PO DAILY [facility] Last Admin: 03/01/18 10:07 Dose: 50 mg Azithromycin (Zithromax -) 500 mg PO DAILY [facility] Stop: 03/02/18 10:01 Last Admin: 02/28/18 10:33 Dose: 500 mg Divalproex Sodium (Depakote -) 1,000 mg PO BID [facility] Last Admin: 03/01/18 10:08 Dose: 1,000 mg Enoxaparin Sodium (Lovenox -) 40 mg SQ DAILY [facility] Last Admin: 03/01/18 10:08 Dose: 40 mg Ceftriaxone Sodium 1 gm/ (Dextrose) 50 mls @ 100 mls/hr IVPB DAILY [facility]; Protocol Last Admin: 03/01/18 10:07 Dose: 100 mls/hr Lacosamide (Vimpat -) 200 mg PO BID [facility] Last Admin: 03/01/18 10:07 Dose: 200 mg Levothyroxine Sodium (Synthroid -) 75 mcg PO DAILY@0700 [facility] Last Admin: 03/01/18 06:04 Dose: 75 mcg Methylprednisolone Sodium Succinate (Solu-Medrol -) 40 mg IVPUSH Q8H-IV [facility] Last Admin: 03/01/18 10:07 Dose: 40 mg Mirtazapine (Remeron -) 30 mg PO HS [facility] Last Admin: 02/28/18 21:09 Dose: 30 mg Pantoprazole Sodium (Protonix -) 40 mg PO DAILY [facility] Last Admin: 03/01/18 10:07 Dose: 40 mg - Objective Vital Signs: Vital Signs Temperature 97.8 F 03/01/18 06:00 Pulse Rate 64 03/01/18 10:00 Respiratory Rate 20 03/01/18 10:00 Blood Pressure 122/60 03/01/18 10:00 O2 Sat by Pulse Oximetry (%) 95 03/01/18 09:00 Constitutional: Yes: Well Nourished, Calm Eyes: Yes: WNL HENT: Yes: WNL Neck: Yes: WNL Cardiovascular: Yes: Regular Rate and Rhythm, S1, S2 Respiratory: Yes: Wheezes (less wheezes and rhonchi bilaterally) Gastrointestinal: Yes: Normal Bowel Sounds, Soft Extremities: Yes: WNL Edema: No Labs: Problem List - Problems (1) Chronic hypoxemic respiratory failure Code(s): J96.11 - CHRONIC RESPIRATORY FAILURE WITH HYPOXIA (2) COPD with acute exacerbation Code(s): J44.1 - CHRONIC OBSTRUCTIVE PULMONARY DISEASE W (ACUTE) EXACERBATION (3) Hypothyroid Code(s): E03.9 - HYPOTHYROIDISM, UNSPECIFIED (4) Sleep apnea Code(s): G47.30 - SLEEP APNEA, UNSPECIFIED (5) H/O: CVA (cerebrovascular accident) Code(s): Z86.73 - PRSNL HX OF TIA (TIA), AND CEREB INFRC W/O RESID DEFICITS (6) Pneumonia Code(s): J18.9 - PNEUMONIA, UNSPECIFIED ORGANISM Assessment/Plan Problem List - Problems (1) COPD with acute exacerbation Code(s): J44.1 - CHRONIC OBSTRUCTIVE PULMONARY DISEASE W (ACUTE) EXACERBATION (2) Pneumonia Code(s): J18.9 - PNEUMONIA, UNSPECIFIED ORGANISM Assessment/Plan Acute COPD Exacerbation Pneumonia Chronic Hypoxic Respiratory Failure HTN Hyperlipidemia Hypothyroidism h/o CVA Seizure Disorder OSAS - IV medrol same dose - inhaled bronchodilators standing and PRN - O2 to keep SpO2 >90% - abx - outpt PFTs and f/u - DVT prophylaxis - Cough syrup PRN DR GARCIA
--- NOTE | 2018-03-01 12:09 | PN ---
Physical Exam: SUBJECTIVE: Patient seen and examined this morning at bedside. He endorses significant improvement of his breathing, diminishing cough, and diminishing wheezing. He denies subjective fevers, chills or night sweats overnight. Denies abdominal pain, nausea, vomiting. OBJECTIVE: Vital Signs Period Temp Pulse Resp BP Sys/Christensen Pulse Ox Last 24 Hr 97.8 F-98.0 F 61-74 18-20 109-131/59-77 95-98 GENERAL: The patient is awake, alert, and fully oriented, in no acute distress. Patient is on 2L nasal canula HEAD: Normal with no signs of trauma. EYES: PERRL, extraocular movements intact, sclera anicteric, conjunctiva clear. ENT: Oropharynx clear without exudates, moist mucous membranes. NECK: Supple without lymphadenopathy, or JVD LUNGS: Good inspiratory effort, and significantly improved air entry B/L. Faint rhonchi, and expiratory wheezes B/L. Patient is not using accessory muscles of respiration. HEART: Regular rate and rhythm, S1, S2 without murmur, rub or gallop. ABDOMEN: Soft, nontender to light and deep palpation, nondistended. Normoactive bowel sounds X4 quadrants. No guarding, no rebound tenderness. EXTREMITIES: 2+ radial and dorsalis pedis pulses B/L. Warm, well-perfused. No lower extremity edema B/L NEUROLOGICAL: CN II-XII grossly intact, however slight left-sided facial asymmetry with smile, and diminished left sided facial sensation noted. Strength 5/5 B/L upper extremities. Strength 4/5 left lower extremity. Strength 5/5 right lower extremity. Sensation diminished left upper and lower extremities. (Patient reports left sided exam findings are chronic and residual from prior CVA). PSYCH: Normal mood, normal affect upon my encounter today. SKIN: Warm, dry. Active Medications Generic Name Dose Route Start Last Admin Trade Name Freq PRN Reason Stop Dose Admin Albuterol Sulfate 1 amp 02/26/18 08:45 Ventolin 0.083% Nebulizer Soln - NEB Q4H PRN SHORT OF BREATH/WHEEZING Albuterol/Ipratropium 1 amp 02/25/18 12:00 03/01/18 07:50 Duoneb - NEB 1 amp RQID DARRYN Administration Atenolol 50 mg 02/25/18 10:00 03/01/18 10:07 Tenormin - PO 50 mg DAILY DARRYN Administration Azithromycin 500 mg 02/28/18 10:00 02/28/18 10:33 Zithromax - PO 03/02/18 10:01 500 mg DAILY DARRYN Administration Divalproex Sodium 1,000 mg 02/26/18 13:55 03/01/18 10:08 Depakote - PO 1,000 mg BID DARRYN Administration Enoxaparin Sodium 40 mg 02/25/18 10:00 03/01/18 10:08 Lovenox - SQ 40 mg DAILY DARRYN Administration Ceftriaxone Sodium 1 gm/ 50 mls @ 100 mls/hr 02/25/18 10:00 03/01/18 10:07 Dextrose IVPB 100 mls/hr DAILY DARRYN Administration Protocol Lacosamide 200 mg 02/26/18 14:34 03/01/18 10:07 Vimpat - PO 200 mg BID DARRYN Administration Levothyroxine Sodium 75 mcg 02/25/18 10:15 03/01/18 06:04 Synthroid - PO 75 mcg DAILY@0700 DARRYN Administration Methylprednisolone Sodium Succinate 40 mg 02/25/18 10:00 03/01/18 10:07 Solu-Medrol - IVPUSH 40 mg Q8H-IV DARRYN Administration Mirtazapine 30 mg 02/25/18 22:00 02/28/18 21:09 Remeron - PO 30 mg HS DARRYN Administration Pantoprazole Sodium 40 mg 02/26/18 13:00 03/01/18 10:07 Protonix - PO 40 mg DAILY DARRYN Administration IMAGING Chest X-ray (admission): Segmental left lower lobe infiltrate CT chest (admission): Patchy left lower lobe, lingula, and left upper lobe opacities, suggestive of pneumonitis. Atherosclerotic coronary calcifications. ASSESSMENT/PLAN: Patient is a 62 year old male with history of intermittent asthma, COPD (on home oxygen), seizure disorder, prior CVA with residual left sided weakness, hypothyroidism, hypertension presents with complaint of shortness of breath with productive cough for past nine days. COPD, asthma exacerbation -Likely secondary to pneumonia. -Duonebs 1 amp QID -Albuterol nebulizer Q4H PRN -Methylprednisone 40mg IV Q8H. -Azithromycin 500mg PO daily (day #5) -Centriaxone 1 gram IV daily (day #5) -Urine negative for legionella antigens -Blood cultures negative for growth at 96 hours. -Robitussin AC 10mL PO Q8H -Pulmonoloogy consult (Dr. Bullock) appreciated. Hypertension -Atenolol 50mg PO daily Hypothyroidism -Synthroid 75mcg daily Seizure disorder -Depakote 1000mg PO BID -Vimpat 200mg PO BID History of prior CVA -Residual, chronic left sided weakness, and diminished sensation. Anxiety, depression -Remeron 30mg PO HS Insomnia -Zolpidem 10mg PO HS PRN FEN -No IV fluids indicated -Follow CMP -Sodium controlled diet Prophylaxis -Lovenox 40mg subq daily -Protonix 40mg PO daily Disposition -Continue care in medical-surgical floor Fall precautions Visit type - Emergency Visit Emergency Visit: Yes ED Registration Date: 02/25/18 Care time: The patient presented to the Emergency Department on the above date and was hospitalized for further evaluation of their emergent condition. - New Patient This patient is new to me today: No - Critical Care Critical Care patient: No - Discharge Referral Referred to [facility] Med P.C.: No
--- NOTE | 2018-03-01 12:32 | PN ---
Teaching Attending Note Name of Resident: Jean Pierre Urrutia ATTENDING PHYSICIAN STATEMENT I saw and evaluated the patient. I reviewed the resident's note and discussed the case with the resident. I agree with the resident's findings and plan as documented. SUBJECTIVE:much better than yesterday still have sever cough OBJECTIVE: Vital Signs Period Temp Pulse Resp BP Sys/Christensen Pulse Ox Last 24 Hr 97.8 F-98.0 F 61-74 18-20 109-131/59-77 95-98 Heent no cyanosis neck supple lungs zandra exp wheezing ext no edema Current Medications Albuterol Sulfate (Ventolin 0.083% Nebulizer Soln -) 1 amp NEB Q4H PRN PRN Reason: SHORT OF BREATH/WHEEZING Albuterol/Ipratropium (Duoneb -) 1 amp NEB RQID [facility] Last Admin: 03/01/18 12:04 Dose: 1 amp Atenolol (Tenormin -) 50 mg PO DAILY [facility] Last Admin: 03/01/18 10:07 Dose: 50 mg Azithromycin (Zithromax -) 500 mg PO DAILY [facility] Stop: 03/02/18 10:01 Last Admin: 02/28/18 10:33 Dose: 500 mg Divalproex Sodium (Depakote -) 1,000 mg PO BID [facility] Last Admin: 03/01/18 10:08 Dose: 1,000 mg Enoxaparin Sodium (Lovenox -) 40 mg SQ DAILY [facility] Last Admin: 03/01/18 10:08 Dose: 40 mg Guaifenesin/Codeine Phosphate (Robitussin Ac -) 10 ml PO Q8H PRN PRN Reason: COUGH Ceftriaxone Sodium 1 gm/ (Dextrose) 50 mls @ 100 mls/hr IVPB DAILY [facility]; Protocol Last Admin: 03/01/18 10:07 Dose: 100 mls/hr Lacosamide (Vimpat -) 200 mg PO BID [facility] Last Admin: 03/01/18 10:07 Dose: 200 mg Levothyroxine Sodium (Synthroid -) 75 mcg PO DAILY@0700 [facility] Last Admin: 03/01/18 06:04 Dose: 75 mcg Methylprednisolone Sodium Succinate (Solu-Medrol -) 40 mg IVPUSH Q8H-IV [facility] Last Admin: 03/01/18 10:07 Dose: 40 mg Mirtazapine (Remeron -) 30 mg PO HS [facility] Last Admin: 02/28/18 21:09 Dose: 30 mg Pantoprazole Sodium (Protonix -) 40 mg PO DAILY [facility] Last Admin: 03/01/18 10:07 Dose: 40 mg Zolpidem Tartrate (Ambien -) 10 mg PO HS PRN PRN Reason: INSOMNIA ASSESSMENT AND PLAN:his is a 62 year old man with a history of HTN, hyperlipidemia, hemorrhagic stroke with left sided weakness, seizure disorder, migraine MORGAN, chronic hypoxic respiratory faiulure, asthma, COPD, hypothyroidism , depression, anxiety, pancreatic cyst, kidney cyst, nephrolithiasis who presented to the ED with a cough and SOB. - still have severe wheezing and will continue same dose of solumedrol - Continue SoluMedrol, ceftriaxone, Zithromax, DuoNeb, albuterol as needed, Robitussin AC as needed - advised him to inc his activity and if improve the way , he may be able to go home. continue bp , thyroid and sleeping meds
[2018-03-01] MEDS: AZITHROMYCIN 250 MG TABLET PO SCH (14:47)
[2018-03-01] MEDS: guaiFENesin/CODEINE 10 ML UNIT-DOSE CUPS PO PRN (15:45)
[2018-03-01] MEDS: MIRTAZAPINE 30 MG TABLET (FP) PO SCH (21:24)
[2018-03-02] MEDS: methylPREDNISolone NA SUCC 40 MG/1 ML VIAL IVPUSH SCH ×2 (02:03→10:37)
[2018-03-02] MEDS: LEVOTHYROXINE NA 75 MCG TABLET (FP) PO SCH (06:13)
[2018-03-02] MEDS: ALBUTEROL SO4 2.5/IPRATROPIUM 0.5 INH SOL 3 ML VIAL.NEB. NEB SCH ×3 (07:20→15:45)
[2018-03-02 08:19] LABS: HEMATOCRIT 41.3 % (35.4-49); HEMOGLOBIN 13.3 GM/dL (11.7-16.9); MCH 29.6 pg (25.7-33.7); MCHC 32.3 g/dl (32.0-35.9); MEAN CELL VOLUME 91.7 fl (80-96); MEAN PLT VOLUME 8.4 fl (7.5-11.1); PLATELET COUNT 504 K/MM3 (134-434); RDW 14.5 % (11.9-15.9); WHITE BLOOD COUNT 11.7 K/mm3 (4.0-10.0)
[2018-03-02 08:40] LABS: ALBUMIN 2.8 g/dl (3.4-5.0); ALK PHOS 58 U/L (45-117); ANION GAP 8 MMOL/L (8-16); BILIRUBIN,TOTAL 0.2 mg/dL (0.2-1); BLOOD UREA NITROGEN 27 mg/dL (7-18); CALCIUM 8.2 mg/dL (8.5-10.1); CHLORIDE 100 mmol/L (98-107); CO2 27 mmol/L (21-32); CREATININE 0.8 mg/dL (0.55-1.3); GLUCOSE,RANDOM 113 mg/dL (74-106); SGOT/AST 5 U/L (15-37); SGPT/ALT 16 U/L (13-61); SODIUM 135 mmol/L (136-145); TOT PROT 5.9 g/dl (6.4-8.2)
[2018-03-02] MEDS ORDERED: cefTRIAXone SODIUM 1 GM VIAL ONE (10:15)
[2018-03-02] MEDS ORDERED: DEXTROSE 5%-WATER - 50 ML IVPB ONE (10:15)
[2018-03-02] MEDS ORDERED: PT OWN MED DRAWER 7, Y5N ONE (10:15)
[2018-03-02] MEDS: LACOSAMIDE 50 MG TABLET PO SCH (10:36)
[2018-03-02] MEDS: PANTOPRAZOLE 40 MG TABLET (FP) PO SCH (10:36)
[2018-03-02] MEDS: CEFTRIAXONE 1 GM in DEXTROSE 5%-WATER - 50 ML IVPB SCH (10:37)
[2018-03-02] MEDS: AZITHROMYCIN 250 MG TABLET PO SCH (10:37)
[2018-03-02] MEDS: ATENOLOL 50 MG TABLET (FP) PO SCH (10:37)
[2018-03-02] MEDS: DIVALPROEX SODIUM 500 MG TABLET E.C. PO SCH (10:38)
[2018-03-02] MEDS: ENOXAPARIN NA (PORCINE) 40 MG/0.4 ML DISP.SYRIN SQ SCH (10:38)
[2018-03-02] MEDS: guaiFENesin/CODEINE 10 ML UNIT-DOSE CUPS PO PRN (12:36)
[2018-03-02 13:54] VITALS: BP 119/67; PULSE 81; TEMP 97.9
--- NOTE | 2018-03-02 13:56 | PN ---
Progress Note (short form) - Note Progress Note: PULMONARY Breathing continues to improve. Less cough and wheezing. Vital Signs Period Temp Pulse Resp BP Sys/Christensen Pulse Ox Last 24 Hr 97.4 F-98.4 F 66-84 18-20 113-127/66-87 95 Gen: NAD at rest Heart: RRR Lung: decreased breath sounds at the bases, no wheezes Abd: soft, nontender Ext: no edema CBC, BMP 03/02/18 06:00 03/02/18 06:00 Active Medications Albuterol Sulfate (Ventolin 0.083% Nebulizer Soln -) 1 amp NEB Q4H PRN PRN Reason: SHORT OF BREATH/WHEEZING Albuterol/Ipratropium (Duoneb -) 1 amp NEB RQID [facility] Last Admin: 03/02/18 11:35 Dose: 1 amp Atenolol (Tenormin -) 50 mg PO DAILY [facility] Last Admin: 03/02/18 10:37 Dose: 50 mg Divalproex Sodium (Depakote -) 1,000 mg PO BID [facility] Last Admin: 03/02/18 10:38 Dose: 1,000 mg Enoxaparin Sodium (Lovenox -) 40 mg SQ DAILY [facility] Last Admin: 03/02/18 10:38 Dose: 40 mg Guaifenesin/Codeine Phosphate (Robitussin Ac -) 10 ml PO Q8H PRN PRN Reason: COUGH Last Admin: 03/02/18 12:36 Dose: 10 ml Ceftriaxone Sodium 1 gm/ (Dextrose) 50 mls @ 100 mls/hr IVPB DAILY [facility]; Protocol Last Admin: 03/02/18 10:37 Dose: 100 mls/hr Lacosamide (Vimpat -) 200 mg PO BID [facility] Last Admin: 03/02/18 10:36 Dose: 200 mg Levothyroxine Sodium (Synthroid -) 75 mcg PO DAILY@0700 [facility] Last Admin: 03/02/18 06:13 Dose: 75 mcg Methylprednisolone Sodium Succinate (Solu-Medrol -) 40 mg IVPUSH Q8H-IV [facility] Last Admin: 03/02/18 10:37 Dose: 40 mg Mirtazapine (Remeron -) 30 mg PO HS [facility] Last Admin: 03/01/18 21:24 Dose: 30 mg Pantoprazole Sodium (Protonix -) 40 mg PO DAILY [facility] Last Admin: 03/02/18 10:36 Dose: 40 mg Zolpidem Tartrate (Ambien -) 10 mg PO HS PRN PRN Reason: INSOMNIA Last Admin: 03/01/18 21:24 Dose: 10 mg A/P Acute COPD Exacerbation Pneumonia Chronic Hypoxic Respiratory Failure HTN Hyperlipidemia Hypothyroidism h/o CVA Seizure Disorder OSAS - can change steroids to PO prednisone 40mg daily and taper as outpt - inhaled bronchodilators standing and PRN - O2 to keep SpO2 >90% - complete antibiotics - outpt PFTs and f/u - DVT prophylaxis - can discharge from a pulmonary standpoint Problem List - Problems (1) COPD with acute exacerbation Code(s): J44.1 - CHRONIC OBSTRUCTIVE PULMONARY DISEASE W (ACUTE) EXACERBATION (2) Pneumonia Code(s): J18.9 - PNEUMONIA, UNSPECIFIED ORGANISM
--- NOTE | 2018-03-02 15:38 | DS ---
Physical Exam: SUBJECTIVE: Patient seen and examined at bedside this morning. He endorses significant improvement of his breathing, diminishing cough, and diminishing wheezing. He denies subjective fevers, chills or night sweats overnight. Denies abdominal pain, nausea, vomiting. OBJECTIVE: Vital Signs Period Temp Pulse Resp BP Sys/Christensen Pulse Ox Last 24 Hr 97.4 F-97.9 F 66-84 18-20 119-127/67-87 95 PHYSICAL EXAM GENERAL: The patient is awake, alert, and fully oriented, in no acute distress. HEAD: Normal with no signs of trauma. EYES: PERRL, extraocular movements intact, sclera anicteric, conjunctiva clear. ENT: Oropharynx clear without exudates, moist mucous membranes. NECK: Supple without lymphadenopathy, or JVD LUNGS: Good inspiratory effort, and improved air entry B/L. No rhonchi or wheezes B/L. Patient is not using accessory muscles of respiration. HEART: Regular rate and rhythm, S1, S2 without murmur, rub or gallop. ABDOMEN: Soft, nontender to light and deep palpation, nondistended. Normoactive bowel sounds X4 quadrants. No guarding, no rebound tenderness. EXTREMITIES: 2+ radial and dorsalis pedis pulses B/L. Warm, well-perfused. No lower extremity edema B/L NEUROLOGICAL: CN II-XII grossly intact, however slight left-sided facial asymmetry with smile, and diminished left sided facial sensation noted. Strength 5/5 B/L upper extremities. Strength 4/5 left lower extremity. Strength 5/5 right lower extremity. Sensation diminished left upper and lower extremities. (Patient reports left sided exam findings are chronic and residual from prior CVA). PSYCH: Normal mood, normal affect upon my encounter today. SKIN: Warm, dry. LABS Laboratory Results - last 24 hr 03/02/18 03/02/18 06:00 06:00 WBC 11.7 H RBC 4.50 Hgb 13.3 Hct 41.3 MCV 91.7 MCH 29.6 MCHC 32.3 RDW 14.5 Plt Count 504 H MPV 8.4 Sodium 135 L Potassium 5.0 Chloride 100 Carbon Dioxide 27 Anion Gap 8 BUN 27 H Creatinine 0.8 Creat Clearance w eGFR > 60 Random Glucose 113 H Calcium 8.2 L Total Bilirubin 0.2 AST 5 L ALT 16 Alkaline Phosphatase 58 Total Protein 5.9 L Albumin 2.8 L HOSPITAL COURSE: Date of Admission:02/25/18 Date of Discharge: 03/02/18 Patient is a 62 year old male with history of intermittent asthma, COPD (on home oxygen), seizure disorder, prior CVA with residual left sided weakness, hypothyroidism, hypertension presents with complaint of shortness of breath with productive cough for past nine days prior to admission. Chest X-ray upon admission showed segmental left lower lobe infiltrate. CT chest admission showed patchy left lower lobe, lingula, and left upper lobe opacities, suggestive of pneumonitis. Atherosclerotic coronary calcifications noted. COPD exacerbation likely secondary to community acquired pneumonia. Patient started on DuoNebs, SoluMedrol, Azithromyin, Ceftriaxone. Urine negative for legionella antigens. Blood cultures negative for growth. Shortness of breath, and cough significantly improved, and patient was discharged home to follow up his primary care physician, embossing unit operator. Discharged with Ceftin for additional 5 days, and 8 day Prednisone taper per pulmonology recommendations. Minutes to complete discharge: 35 Discharge Summary Reason For Visit: ASTHMATIC BRONCHITIS ACUTE BRONCHITIS WITH COPD Current Active Problems Asthmatic bronchitis (Acute) COPD (chronic obstructive pulmonary disease) with acute bronchitis (Acute) COPD with acute exacerbation (Acute) Chronic hypoxemic respiratory failure (Acute) H/O: CVA (cerebrovascular accident) (Acute) Hypothyroid (Acute) Pneumonia (Acute) Sleep apnea (Acute) Condition: Stable - Instructions Diet, Activity, Other Instructions: You were admitted to the hospital due to difficulty breathing due to a COPD exacerbation. You were treated with antibiotics, steroids, and breathing treatments You are being discharged home. Continue using your home oxygen as directed. Continue taking your home medications as directed. You will take antibiotic Ceftin 500mg every 12 hours for the next 5 days. You will continue taking Prednisone in a tapered dose. Follow the instructions: 03/03 take Prednisone 40mg 03/04 take Prednisone 35mg 03/05 take Prednisone 30mg 03/06 take Prednisone 25mg 03/07 take Prednisone 20mg 03/08 take Prednisone 15mg 03/09 take Prednisone 10mg 03/10 take Prednisone 5mg Follow up with your primary care physician within two- three days after hospital discharge. Follow up with embossing unit operator Dr. Bullock within one week of discharge. Return to the nearest Emergency Department if you experience any fevers, chills , shortness of breath, chest pain, palpitations, abdominal pain, nausea, vomiting. Referrals: Nicholas Bullock MD [Staff Physician] - Dominguez Olguin MD [Primary Care Provider] - Disposition: HOME - Home Medications Comprehensive Discharge Medication List: Ambulatory Orders Atenolol [Tenormin -] 50 mg PO DAILY 10/14/14 Divalproex [Depakote -] 1,000 mg PO BID 10/14/14 Zolpidem Tartrate [Ambien] 10 mg PO HS 01/02/16 Albuterol Sulfate Inhaler - [Ventolin HFA Inhaler -] 1 - 2 inh PO Q4H #1 inhaler 07/16/17 Levothyroxine [Synthroid -] 75 mcg PO DAILY 07/16/17 Mirtazapine [Remeron -] 30 mg PO DAILY 07/16/17 Amoxicillin/Potassium Clav [Augmentin 875-125 Tablet] 1 each PO BID 02/25/18 Carisoprodol [Soma] 350 mg PO Q6H PRN 02/25/18 Lacosamide [Vimpat] 200 mg PO BID 02/26/18 Cefuroxime Axetil [Ceftin -] 500 mg PO Q12H 5 Days #10 tablet 03/02/18 Prednisone See Taper PO ASDIR 8 Days #20 tablet 03/02/18 This patient is new to me today: No Emergency Visit: Yes ED Registration Date: 02/25/18 Care time: The patient presented to the Emergency Department on the above date and was hospitalized for further evaluation of their emergent condition. Critical Care patient: No - Discharge Referral Referred to [facility] Med P.C.: No
--- NOTE | 2018-03-02 17:24 | PN ---
Teaching Attending Note Name of Resident: Jean Pierre Urrutia ATTENDING PHYSICIAN STATEMENT I saw and evaluated the patient. I reviewed the resident's note and discussed the case with the resident. I agree with the resident's findings and plan as documented. SUBJECTIVE: Feels much improved. No more SOB OBJECTIVE: Afebrile/Hemodynamically Stable. Last Vital Signs Temp Pulse Resp BP Pulse Ox 97.9 F 81 18 119/67 95 03/02/18 13:53 03/02/18 13:53 03/02/18 13:53 03/02/18 13:53 03/01/18 21:00 HEENT - Atraumatic, Normocephalic Heart -S1, S2, RRR Lungs - bibasal decreased air entry Abdomen - Soft, non-tender. Bowel Sounds normal. Extremities - no calf tenderness. Laboratory Results - last 24 hr 02/25/18 03/02/18 03/02/18 04:41 06:00 06:00 WBC 11.7 H RBC 4.50 Hgb 13.3 Hct 41.3 MCV 91.7 MCH 29.6 MCHC 32.3 RDW 14.5 Plt Count 504 H MPV 8.4 Sodium 135 L Potassium 5.0 Chloride 100 Carbon Dioxide 27 Anion Gap 8 BUN 27 H Creatinine 0.8 Creat Clearance w eGFR > 60 Random Glucose 113 H Calcium 8.2 L Total Bilirubin 0.2 AST 5 L ALT 16 Alkaline Phosphatase 58 Total Protein 5.9 L Albumin 2.8 L C. pneumoniae IgG Ab 1:16 C. pneumoniae IgA Ab 1:16 C. pneumoniae IgM Ab <1:10 ASSESSMENT AND PLAN: 62 year old male with history of HTN, hyperlipidemia, hemorrhagic stroke with residual left sided weakness, seizure disorder, migraine MORGAN, chronic hypoxic respiratory failure, asthma/COPD, hypothyroidism, depression, anxiety, pancreatic cyst, kidney cyst, nephrolithiasis who presented to the ED with a cough and SOB. 1. Acute on Chronic Respiratory Failure secondary to Acute exacerbation of COPD/ asthma secondary to pneumonia Failed outpatient treatment with Augmentin, Prednisone Improved on IV SoluMedrol, ceftriaxone, Zithromax, DuoNeb. Medically Stable for discharge to complete 10 day Abx course, and 4 additional days of oral steroid. Supplemental O2 to maintain O2 sat > 90% If night sweats persist after stopping steroid, patient advised to see PCP - no lymphadenopathy, fevers, hemoptysis, or history of weight loss. 2. HTN - Continue atenolol 3. Hx hemorrhagic CVA with residual L sided weakness - BP control emphasized, patient to follow with PCP. 4. Seizure disorder - Continue Depakote, Vimpat 5. Hypothyroidism - Continue Synthroid 6. Depression/Anxiety - Continue Remeron
== END 2018-03-02 16:33 | disposition home or self-care (01) | DRG 139 ==
LOC: JER 01:24 → JERBED 06:13 → OBSVTOIN 07:55 → J5S 14:35
PROVIDERS: ADMIT Internal Medicine
DX: J18.9 Pneumonia, unspecified organism (principal); J96.11 Chronic respiratory failure with hypoxia; K86.2 Cyst of pancreas; J44.1 Chronic obstructive pulmonary disease with (acute) exacerbation; J45.41 Moderate persistent asthma with (acute) exacerbation; J44.0 Chronic obstructive pulmonary disease with (acute) lower respiratory infection; Z99.81 Dependence on supplemental oxygen; I69.354 Hemiplegia and hemiparesis following cerebral infarction affecting left non-dominant side; N28.1 Cyst of kidney, acquired; G40.909 Epilepsy, unspecified, not intractable, without status epilepticus; G43.909 Migraine, unspecified, not intractable, without status migrainosus; I10 Essential (primary) hypertension; E78.5 Hyperlipidemia, unspecified; E03.9 Hypothyroidism, unspecified; F41.8 Other specified anxiety disorders; G47.00 Insomnia, unspecified
CPT/HCPCS: 36415; 36600; 71046-TC-FY; 71250-TC; 80048; 80053; 80061; 81003; 81015; 82375; 82550; 82553; 82803; 83050; 83721; 83735; 83880; 84100; 84132; 84443; 84484; 85025; 85027; 85379; 85610; 86631; 86632; 87040; 87086; 87804; 87807; 87899; 93005; 93010; 94640; 99285-25; G0378; J7030

== ENCOUNTER 2019-08-27 13:02 | Inpatient (IN) | payer OTHER ==
--- NOTE | 2019-08-27 14:17 | PDOC ---
History of Present Illness - General Chief Complaint: CVA/TIA Stated Complaint: WEAKNESS/ RT ARM ISSUE Time Seen by Provider: 08/27/19 13:18 History Source: Patient Exam Limitations: No Limitations - History of Present Illness Initial Comments: 08/27/19 14:07 HPI: This is a 63 y/o male smoker with a PMH of prior hemorrhagic stroke in 2003 with residual L.sided weakness, epilepsy, HTN, HLD, and COPD sent in to the ED by his neurologist, Dr. Odonnell for 2 weeks of right arm ataxia. He states two weeks ago he started having "altered sensations" in his right arm and was unable to locate it in space. He describes hyperesthesia and loss of proprioception of his right arm and hand when he is taking a shower. Additionally, his right hand has been clenching which is getting progressively worse. He believed these symptoms were due to his right shoulder and previous injury, but his orthopedist said this was unlikely. He saw Dr. Odonnell two days ago who sent him for an MRI. He denies headache, blurry vision, trouble walking, chest pain, or SOB. 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 NIH Stroke Scale - Initial Evaluation Level of consciousness: Alert Ask patient the month and their age: Answers both correctly Ask patient to open & close eyes; make fist and let go: Obeys both correctly Best gaze (horizontal eye movement): Normal Visual field testing: Partial hemianopia Facial paresis (Show teeth/raise eyebrows/close eyes tight): Minor paralysis (flattened nasolabial fold, asymmetry on smiling) (Patient states from previous CVA) Motor Function: Left Arm: Normal Motor Function: Right Arm: Normal (extends arm 90 (or 45) degrees for 10 seconds without drift Motor Function: Left Leg: Normal (extends leg 30 degrees for 5 seconds without drift) Motor Function: Right Leg: Normal (extends leg 30 degrees for 5 seconds without drift) Limb Ataxia: Present in one limb (Right arm) Sensory(Use pinprick test arms,legs,trunk,face/side to side): Mild to moderate decrease in sensation (Right arm) Best language (Describe picture, name items, read sentences): No Aphasia Dysarthria (read several words): Normal articulation Extinction and Inattention: No abnormality - Total Score NIH Stroke Scale Score: 4 Past History - Medical History Allergies/Adverse Reactions: Allergies Allergy/AdvReac Type Severity Reaction Status Date / Time fluconazole [From Diflucan] Allergy Severe anaphylaxis Verified 08/08/19 13:50 Home Medications: Ambulatory Orders Atenolol [Tenormin -] 50 mg PO DAILY 10/14/14 Divalproex [Depakote -] 1,000 mg PO BID 10/14/14 Zolpidem Tartrate [Ambien] 10 mg PO HS 01/02/16 Albuterol Sulfate Inhaler - [Ventolin HFA Inhaler -] 1 - 2 inh PO Q4H #1 inhaler 07/16/17 Levothyroxine [Synthroid -] 75 mcg PO DAILY 07/16/17 Mirtazapine [Remeron -] 30 mg PO DAILY 07/16/17 Carisoprodol [Soma] 350 mg PO Q6H PRN 02/25/18 Lacosamide [Vimpat] 200 mg PO BID 02/26/18 Hydrocodone-Acetamin 7.5-325 1 tab PO BID 08/27/19 Anemia: No Asthma: Yes Cancer: No Cardiac Disorders: No CVA: Yes (lt side residual weakness) COPD: Yes CHF: No Dementia: No Diabetes: No GI Disorders: (CYST ON PANCREAS) Disorders: Yes (LEFT KIDNEY CYST, stones) HTN: Yes Hypercholesterolemia: Yes Kidney Stones: Yes Liver Disease: No Seizures: Yes Thyroid Disease: Yes (hypothyroidism) - Surgical History Abdominal Surgery: Yes (left inguinal hernia x 2) Appendectomy: No Cardiac Surgery: No Cholecystectomy: No Lung Surgery: No Neurologic Surgery: No Orthopedic Surgery: No - Immunization History Td Vaccination: Yes Immunization Up to Date: (FLU 2012 AND PNA) - Psycho-Social/Smoking History Smoking Status: Yes Smoking History: Current every day smoker Years of Tobacco Use: 30 Have you smoked in the past 12 months: No Number of Cigarettes Smoked Daily: 2 If you are a former smoker, when did you quit?: 04/2017 'Breaking Loose' booklet given: 09/20/15 Review of Systems - Review of Systems Able to Perform ROS?: Yes Constitutional: No: Fever, Weakness HEENTM: No: Blurred Vision, Double Vision Respiratory: No: Shortness of Breath, Wheezing Cardiac (ROS): No: Chest Pain, Irregular Heart Rate, Lightheadedness, Palpitations, Syncope ABD/GI: No: Constipated, Diarrhea, Nausea, Vomiting : No: Burning, Dysuria Musculoskeletal: Yes: Other (R. hand stiffness). No: Muscle Pain, Muscle Weakness Neurological: Yes: Numbness (Right arm and hand), Paresthesia (Right arm and hand), Pre-Existing Deficit (Left arm and leg), Tingling, Ataxia (Right arm and hand). No: Headache Endocrine: No: Unexplained Weight Loss, Change in Weight Hematologic/Lymphatic: No: Anemia, Easy Bleeding *Physical Exam - Physical Exam General Appearance: Yes: Appropriately Dressed. No: Apparent Distress HEENT: positive: EOMI, RITU, Normal Voice Neck: positive: Trachea midline. negative: Decreased range of motion Respiratory/Chest: positive: Lungs Clear, Normal Breath Sounds. negative: Respiratory Distress, Accessory Muscle Use, Labored Respiration Cardiovascular: positive: Regular Rhythm, Regular Rate, S1, S2 Gastrointestinal/Abdominal: negative: Guarding, Rebound, Tenderness Musculoskeletal: positive: Muscle Spasm (Right hand contraction). negative: CVA Tenderness Extremity: positive: Normal Inspection, Normal Range of Motion Neurologic: positive: Fully Oriented, Alert, Normal Mood/Affect, Motor Strength 5/5, Facial Droop (Left sided, reports from previous CVA), Numbness (Right shoulder), Sensory Deficit (right shoulder, arm, hand). negative: Finger to Nose (Right arm ataxia) Heart Score/ECG Review - ECG Intrepretation Comment:: EKG shows sinus bradycardia Vent rate: 58bpm PA interval: 138ms QRS duration: 96ms QT/QTc: 418/410ms 08/27/19 14:24 ED Treatment Course - LABORATORY CBC & Chemistry Diagram: 08/27/19 14:50 08/27/19 14:50 Medical Decision Making - Medical Decision Making 08/27/19 14:25 This is a 63 y/o male with a PMH of right sided hemorrhagic CVS in 2003, HTN, HLD, presenting to the ED following 2 weeks of right arm ataxia and an MRI this morning. 08/27/19 15:14 MRI 10: 1. There are regions of acute/early subacute ischemic infarct in the left cerebral hemisphere including infarct centered around the left central sulcus including portions of the left precentral and postcentral gyri, left parietal l obe cortex, small portion of the left occipital lobe cortex and in the left tanner radiata. The presence of the ischemic changes were discussed by Dr. Beard with Dr. Mota after the completion of the MRI of the brain. The patient was sent to the emergency room at [facility]. 2. There is abnormal signal within the visualized left internal carotid artery compatible with slow flow and/or occlusion. CT or MR angiography of the head and neck are recommended to evaluate for vessel stenosis, occlusion and dissection. 3. Chronic region of encephalomalacia and hemosiderin deposition compatible with an old hemorrhage in the history right basal ganglia and right tanner radiata. 4. There are mild chronic small vessel ischemic changes in the cerebral white matter. 08/27/19 17:[address] Wells patient will be admitted for further management. 08/27/19 17:29 -EKG -CXR -CBC -CMP - PT/PTT 08/27/19 21:30 Discharge - Discharge Information Problems reviewed: Yes Clinical Impression/Diagnosis: Cerebrovascular accident (CVA) Qualifiers: CVA mechanism: unspecified Qualified Code(s): I63.9 - Cerebral infarction, unspecified Condition: Stable - Admission Yes - Follow up/Referral - Patient Discharge Instructions - Post Discharge Activity
[2019-08-27 15:09] LABS: BASO % 0.8 % (0-2.0); EOS % 0.4 % (0-4.5); HEMOGLOBIN 14.1 GM/dL (11.7-16.9); LYMPH % 44.4 % (8-40); MCH 30.3 pg (25.7-33.7); MCHC 33.7 g/dl (32.0-35.9); MEAN CELL VOLUME 89.9 fl (80-96); MEAN PLT VOLUME 8.7 fl (7.5-11.1); MONO % 5.5 % (3.8-10.2); NEUT % 48.9 % (42.8-82.8); PLATELET COUNT 250 K/MM3 (134-434); RBC 4.67 M/mm3 (4.00-5.60); RDW 13.6 % (11.9-15.9)
[2019-08-27 15:21] LABS: INR 0.94 (0.83-1.09); PROTHROMBIN TIME (PATIENT) 11.1 SEC (9.7-13.0)
[2019-08-27 15:24] LABS: ACTIVATED PTT 28.8 SECONDS (25.2-36.5)
--- NOTE | 2019-08-27 15:35 | PDOC ---
Documentation entered by Amna Donaldson SCRIBE, acting as scribe for Morris Morales MD. Morris Morales MD: This documentation has been prepared by the Anika seay Brenda, SCRIBE, under my direction and personally reviewed by me in its entirety. I confirm that the documentation accurately reflects all work, treatment, procedures, and medical decision making performed by me. 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 The patient notes that he started having aletered sensations 2 weeks ago in his right arm, to the point where he wasn't able to locate it in space along with hyperesthesia and notes that fine movements of his R arm is altered so much that he gets his further stuck in furniture when tryin gto move around. The patient denies chest pain, shortness of breath, headache and dizziness. Denies fever, chills, nausea, vomiting, diarrhea and constipation. Denies frequency, urgency and hematuria. The patient denies any other symptoms. Denie sany focal weaness, dysarhira, Allergies: NKA Social Hx: 40 years of tobacco use Neuro: Dr. Odonnell - Physicial Exam PE: 08/27/19 15:29 GENERAL: The patient is awake, alert, and fully oriented, Nontoxic - in no acute distress. HEAD: Normocephalic, atraumatic. EYES: extraocular movements intact, sclera anicteric, conjunctiva clear. ENT: Normal voice, Moist mucous membranes. NECK: Normal range of motion, supple LUNGS: Breath sounds equal, clear to auscultation bilaterally. No wheezes, no rhonchi, no rales. HEART: Regular rate and rhythm, normal S1 and S2 without murmur, rub or gallop. ABDOMEN: Soft, nontender, No guarding, no rebound. No CVA tenderness EXTREMITIES: Normal range of motion, no edema. PSYCH: Normal mood, normal affect. SKIN: Warm, Dry, normal turgor, NEURO: Mental status: The patient is oriented x3. Cranial nerves: Cranial nerves II through XII are intact Motor: 5- weakness of R arm, 5/5 on L arm, LLE, RLE Sensation: deminished senation on R arm, normal sensation of RLE/LLE Cerebellar: abnormal finger to nose on R arm, normal finger to nose on L arm Gait: limping gait (prior cva weakness) - Medical Decision Making 08/27/19 15:34 subacute sroke on MRI pt hemodynamically stable [facility] Heart Score/ECG Review - ECG Impressions Comment:: 08/27/19 15:41 Twelve-lead EKG was performed and reviewed by me. There is normal sinus rhythm with a rate of 58 The axis is normal. The intervals are normal. There is normal R wave progression There are no ST or T wave abnormalities. Impression: Normal twelve-lead EKG Discharge - Discharge Information Problems reviewed: Yes Clinical Impression/Diagnosis: Cerebrovascular accident (CVA) Qualifiers: CVA mechanism: unspecified Qualified Code(s): I63.9 - Cerebral infarction, unspecified Condition: Good Disposition: HOME - Follow up/Referral - Patient Discharge Instructions - Post Discharge Activity
[2019-08-27 15:48] LABS: ALBUMIN 3.5 g/dl (3.4-5.0); BILIRUBIN,TOTAL 0.6 mg/dL (0.2-1); BLOOD UREA NITROGEN 16.1 mg/dL (7-18); CALCIUM 8.5 mg/dL (8.5-10.1); CREATININE 0.6 mg/dL (0.55-1.3); POTASSIUM 4.3 mmol/L (3.5-5.1); TOT PROT 6.4 g/dl (6.4-8.2)
--- NOTE | 2019-08-27 16:04 | PN ---
Teaching Attending Note Name of Resident: Keila Simpson ATTENDING PHYSICIAN STATEMENT I saw and evaluated the patient. I reviewed the resident's note and discussed the case with the resident. I agree with the resident's findings and plan as documented. SUBJECTIVE: 63 year old male with known history of hemorrhagic CVA (2003) with residual mild left sided weakness, seizure disorder, hypertension, hyperlipidemia, who presents to the ED at advise of his neurologist Dr Wells because of 2 week history of sudden loss of control of the right arm. He initially thought this was secondary to peripheral nerve injury however with persistence, he got concerned and decided to see his neurologist. MRI of the brain showed subacute infarct in the left cerebral hemisphere. 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 There is mild facial asymmetry with. Left upper extremity is unremarkable. The uvula is mildly deviated to the left. Tongue is midline. Strength of RUE 4/5; LUE 5/5; bilateral lower extremities 5/5. Awake and oriented x 3. Articulating words well. Diminished ability to move right shoulder. He admits to hyperalgesia of the left lower extremity in comparison to the right lower extremity. He is unable to perform alternating movement using the right arm. Left arm strength is normal. Negative babinski. Positive pronator drift on the right. ASSESSMENT AND PLAN: 1. Sub acute infarct left hemisphere - aspirin - check lipid profile - telemetry monitoring - echo, US carotids - PT evaluation - Neurology consultation - BP monitoring - swallow evaluation 2. DVT prophylaxis DW Dr Simpson and agree with plans of care.
--- NOTE | 2019-08-27 16:18 | HP ---
CHIEF COMPLAINT:R arm ataxia HISTORY OF PRESENT ILLNESS: 63 yo M PMH of hemorrhagic stroke() with residual L side weakness, s eizure disorder (on vimpat and depakote), migraines, COPD, Pancreatic cyst, L kidney cyst, nephrolithiasis, HTN, HLD, Hypothyroidism,hx of R rotator cuff injury, presenting from Dr. Wells for R arm ataxia. He states approx 2weeks ago he started having weakness and spasticity of his right arm. He is unable to perform certain tasks and needs to use his left hand to adjust his Right. He describes hyperesthesia and loss of proprioception of his right arm and hand. He states that his hald forms a fist and internally rotates when he doesnt try to stretch it out. He initially believed these symptoms were due to his right shoulder and previous injury, but his orthopedist said this was unlikely. He saw Dr. Odonnell two days ago who sent him for an MRI.He denies difficulty ambulating. He states that he also has a frontal headache. denies blurred vision, denies dizzienss. denies cp, palpitations. ER course was notable for: (1)MRI findings below (2)Dr. Wells consulted PAST MEDICAL HISTORY:see above PAST SURGICAL HISTORY: L inguinal hernia repair Social History: Smoking:extensive smoking hx Alcohol: Drugs: Allergies fluconazole [From Diflucan] Allergy (Severe, Verified 08/08/19 13:50) anaphylaxis HOME MEDICATIONS: Home Medications Medication Instructions Recorded Atenolol [Tenormin -] 50 mg PO DAILY 10/14/14 Divalproex [Depakote -] 1,000 mg PO BID 10/14/14 Zolpidem Tartrate [Ambien] 10 mg PO HS 01/02/16 Albuterol Sulfate Inhaler - 1 - 2 inh PO Q4H #1 inhaler 07/16/17 [Ventolin HFA Inhaler -] Levothyroxine [Synthroid -] 75 mcg PO DAILY 07/16/17 Mirtazapine [Remeron -] 30 mg PO DAILY 07/16/17 Amoxicillin/Potassium Clav 1 each PO BID 02/25/18 [Augmentin 875-125 Tablet] Carisoprodol [Soma] 350 mg PO Q6H PRN 02/25/18 Lacosamide [Vimpat] 200 mg PO BID 02/26/18 Cefuroxime Axetil [Ceftin -] 500 mg PO Q12H 5 Days #10 tablet 03/02/18 Prednisone See Taper PO ASDIR 8 Days #20 03/02/18 tablet PHYSICAL EXAMINATION Vital Signs - 24 hr 08/27/19 13:52 Temperature 98.6 F Pulse Rate 59 L Respiratory 17 Rate Blood Pressure 140/74 O2 Sat by Pulse 98 Oximetry (%) GENERAL: Awake, alert, and fully oriented, in no acute distress. HEAD: Normal with no signs of trauma. EYES:R pupil smaller than Left.both reactive to light. no scleral icteris EARS, NOSE, THROAT:Moist mucous membranes. NECK: Normal range of motion, supple without lymphadenopathy, JVD LUNGS: Breath sounds equal, clear to auscultation bilaterally. . No accessory muscle use. HEART: Regular rate and rhythm, normal S1 and S2 ABDOMEN: Soft, nontender, not distended, normoactive bowel sounds, no guarding, no rebound MUSCULOSKELETAL:No CVA tenderness. R sided paraspinal tenderness around T11 UPPER EXTREMITIES: 2+ pulses, warm, well-perfused. No cyanosis. No clubbing. No peripheral edema. LOWER EXTREMITIES: 2+ pulses, warm, well-perfused. No calf tenderness. No peripheral edema. NEUROLOGICAL: Uvular deviation to L, mild L sided nasolabial droop, R shoulder shrug weak. 5/5 muscle strength B/l UE and LE. unable to do finger to nose on R. capable of finger to nose on L. good heel to kurtz. normal speech. follows all commands Laboratory Results - last 24 hr 08/27/19 08/27/19 08/27/19 14:50 14:50 14:50 WBC 6.0 RBC 4.67 Hgb 14.1 Hct 42.0 MCV 89.9 MCH 30.3 MCHC 33.7 RDW 13.6 Plt Count 250 MPV 8.7 Absolute Neuts (auto) 2.9 Neutrophils % 48.9 Lymphocytes % 44.4 H Monocytes % 5.5 Eosinophils % 0.4 Basophils % 0.8 Nucleated RBC % 0 PT with INR 11.10 INR 0.94 PTT (Actin FS) 28.8 Sodium 140 Potassium 4.3 Chloride 110 H Carbon Dioxide 24 Anion Gap 6 L BUN 16.1 Creatinine 0.6 Est GFR (CKD-EPI)AfAm 124.02 Est GFR (CKD-EPI)NonAf 107.00 Random Glucose 90 Calcium 8.5 Total Bilirubin 0.6 AST 9 L ALT 12 L Alkaline Phosphatase 73 Total Protein 6.4 Albumin 3.5 Brain MRI: IMPRESSION: 1. There are regions of acute/early subacute ischemic infarct in the left cerebral hemisphere including infarct centered around the left central sulcus including portions of the left precentral and postcentral gyri, left parietal lobe cortex, small portion of the left occipital lobe cortex and in the left tanner radiata. The presence of the ischemic changes were discussed by Dr. Beard with Dr. Mota after the completion of the MRI of the brain. The patient was sent to the emergency room at [facility]. 2. There is abnormal signal within the visualized left internal carotid artery compatible with slow flow and/or occlusion. CT or MR angiography of the head and neck are recommended to evaluate for vessel stenosis, occlusion and dissection. 3. Chronic region of encephalomalacia and hemosiderin deposition compatible with an old hemorrhage in the history right basal ganglia and right tanner radiata. 4. There are mild chronic small vessel ischemic changes in the cerebral white matter. MRI Chest: The right and left brachial plexuses are symmetric unremarkable with no evidence of apical or supraclavicular mass lesion. No suspicious pathologic bone marrow replacement cervical vertebrae. No evidence of cord compression. On the right side the cervical foramina and the branches of the right brachial plexus unremarkable at this noncontrast study.. ASSESSMENT/PLAN: 63 yo M PMH of hemorrhagic stroke() with residual L side weakness, seizure disorder (on vimpat and depakote), migraines, COPD, Pancreatic cyst, L kidney cyst, nephrolithiasis, HTN, HLD, Hypothyroidism,hx of R rotator cuff injury, presenting from Dr. Wells for R arm ataxia. Pt is admitted for L cerebral infarct CVA- L cerebral infarct - MRI findings above - Neuro Dr. Wells aware, spoke with him over the phone. will cont tele monitoring, plavix 75 qd,c/w asa daily, echo and carotid doppler - will implement seizure precautions, aspiration precautions , speech and swallow eval - will get depakote level. but will cont depakote and vimpat - will allow for permissive hypertension - lipid panel, A1C - PT - Neuro checks Hypothyroid - cont synthroid - get TSH DVTppx: SCDs Admit to tele ATTENDING PHYSICIAN STATEMENT I saw and evaluated the patient. I reviewed the resident's note and discussed the case with the resident. I agree with the resident's findings and plan as documented. SUBJECTIVE: OBJECTIVE: ASSESSMENT AND PLAN:
--- NOTE | 2019-08-27 17:00 | CON.NEURO ---
Consult Consult Specialty:: Russell Referred by:: Dinesh Reason for Consultation:: CVA - History of Present Illness History of Present Illness: 63 year sold man with PMH CAD OA CVA in the past Seizure disorder Depression tthe patient actually presented to the emergency room at my request about 10 days ago with severe unrelenting neck pain radiating to the right arm with difficulty lifting his arm I instructed the patient to continue the emergency room patient was seen in the emergency room patient CAT scan was negative patient was determined to have questionable peripheral neuropathy and was discharged so the patient few days after in the office and instructed the patient to go for an MRI of the brain and the brachial plexus the radiologist called me today that the MRI of the brain is positive for stroke. Patient was instructed to go to the emergency room. 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, Other (Thalamic pain syndrome) Cardio/Vascular: Yes: HTN Pulmonary: Yes: Bronchitis, COPD Gastrointestinal: Yes: Other (pancreatic cyst) Musculoskeletal: Yes: Chronic low back pain, Hemiparesis, Hemiplegia, Oste oarthritis (Hip), Other (Chronic neck pain, skin tag, rosacea) ENT: Yes: Sinusitis Endocrine: Yes: Hypothyroidism - Past Surgical History Past Surgical History: Yes: Hernia Repair (L x2) - Alcohol/Substance Use Hx Alcohol Use: No - Smoking History Smoking history: Current every day smoker Have you smoked in the past 12 months: No Aproximately how many cigarettes per day: 2 If you are a former smoker, when did you quit?: 04/2017 - Social History Usual Living Arrangement: With Spouse ADL: Family Assistance Home Medications - Allergies Allergies/Adverse Reactions: Allergies Allergy/AdvReac Type Severity Reaction Status Date / Time fluconazole [From Diflucan] Allergy Severe anaphylaxis Verified 08/08/19 13:50 - Home Medications Home Medications: Ambulatory Orders Atenolol [Tenormin -] 50 mg PO DAILY 10/14/14 Divalproex [Depakote -] 1,000 mg PO BID 10/14/14 Zolpidem Tartrate [Ambien] 10 mg PO HS 01/02/16 Albuterol Sulfate Inhaler - [Ventolin HFA Inhaler -] 1 - 2 inh PO Q4H #1 inhaler 07/16/17 Levothyroxine [Synthroid -] 75 mcg PO DAILY 07/16/17 Mirtazapine [Remeron -] 30 mg PO DAILY 07/16/17 Amoxicillin/Potassium Clav [Augmentin 875-125 Tablet] 1 each PO BID 02/25/18 Carisoprodol [Soma] 350 mg PO Q6H PRN 02/25/18 Lacosamide [Vimpat] 200 mg PO BID 02/26/18 Cefuroxime Axetil [Ceftin -] 500 mg PO Q12H 5 Days #10 tablet 03/02/18 Prednisone See Taper PO ASDIR 8 Days #20 tablet 03/02/18 Family Medical History Family History: Unremarkable Review of Systems - Review of Systems Constitutional: reports: No Symptoms Eyes: reports: No Symptoms Neurological: reports: Dizziness, Headache, Incoordination, Numbness, Seizure, Tremors, Weakness Physical Exam-Neuro Vital Signs: Vital Signs Temperature 98.6 F 08/27/19 13:52 Pulse Rate 59 L 08/27/19 13:52 Respiratory Rate 17 08/27/19 13:52 Blood Pressure 140/74 08/27/19 13:52 O2 Sat by Pulse Oximetry (%) 98 08/27/19 13:52 Constitutional: Yes: Well Nourished Neck: Yes: WNL Labs: CBC, BMP 08/27/19 14:50 08/27/19 14:50 INR, PTT INR 0.94 (0.83-1.09) 08/27/19 14:50 - Neuro Exam Level Of Consciousness: Yes: Oriented to Person, Oriented to Place, Oriented to Time Eyes: Yes: PERRLA Speech: WNL Dominant Hand: Right Cranial Nerves II-XII Intact: Yes DTR's: 1+ Left Bicep, 1+ Right Bicep, 1+ Right Tricep, 1+ Left Brachioradialis, 1+ Right Brachioradialis Response to light touch: Normal Response to pain prick: Normal Response to temperature: Normal Motor Strength: 3/5: Right Arm, 4/5: Left Arm, Left Leg, Right Leg Gait: Deferred Imaging - Results Cat Scan: Image Reviewed MRI: Image Reviewed Problem List - Problems (1) H/O: CVA (cerebrovascular accident) Code(s): Z86.73 - PRSNL HX OF TIA (TIA), AND CEREB INFRC W/O RESID DEFICITS Assessment/Plan 1. Physical therapy. 2. Admit to telemetry. 3. Plavix 75 mg once daily. 4. Seizure precautions. 6. SCDs. 7. Echocardiogram. 8. Continue baby aspirin. 9. Depakote level. Thank you very much for allowing me to be part of this patient's neurological care. Sonido Wells M.D. [facility] [phone]
[2019-08-27 18:41] VITALS: BMI 21.7
--- NOTE | 2019-08-27 19:49 | HP ---
CHIEF COMPLAINT: Progressive R arm weakness PCP:[facility] HISTORY OF PRESENT ILLNESS: Mr. Wilks is a 63M w a PMHx of a hemorrhagic stroke back in '04 with residual L sided weakness, epilepsy, HTN, HLD, COPD, Hypothyroid. Mr. Wilks had visited the ED on 08/09/19 for right arm weakness but had left AMA. The patient has returned and now reports lack of proprioception of his right arm and mild weakness. He explained that he would not know how much strength he is using in his right hand and has difficulty with ADL. The patient reports increased sensation in his C6 and T1 dermatomal pattern of distribution along his biceps and forearm. He attributed his symptoms to a musculoskelatal eitiology and was seen by orthopedics. He states that the orthopedic physician ruled out musculoskeletal eitology and was referred to Dr. Odonnell where he had advised Mr. Wilks to arrive at the ED. Recent Travel: DENIES PAST MEDICAL HISTORY: SEE HPI PAST SURGICAL HISTORY: SEE HPI Social History: Smoking: yes Alcohol: denies Drugs: denies Allergies fluconazole [From Diflucan] Allergy (Severe, Verified 08/08/19 13:50) anaphylaxis HOME MEDICATIONS: Home Medications Medication Instructions Recorded Atenolol [Tenormin -] 50 mg PO DAILY 10/14/14 Divalproex [Depakote -] 1,000 mg PO BID 10/14/14 Zolpidem Tartrate [Ambien] 10 mg PO HS 01/02/16 Albuterol Sulfate Inhaler - 1 - 2 inh PO Q4H #1 inhaler 07/16/17 [Ventolin HFA Inhaler -] Levothyroxine [Synthroid -] 75 mcg PO DAILY 07/16/17 Mirtazapine [Remeron -] 30 mg PO DAILY 07/16/17 Amoxicillin/Potassium Clav 1 each PO BID 02/25/18 [Augmentin 875-125 Tablet] Carisoprodol [Soma] 350 mg PO Q6H PRN 02/25/18 Lacosamide [Vimpat] 200 mg PO BID 02/26/18 Cefuroxime Axetil [Ceftin -] 500 mg PO Q12H 5 Days #10 tablet 03/02/18 Prednisone See Taper PO ASDIR 8 Days #20 03/02/18 tablet Hydrocodone-Acetamin 7.5-325 1 tab PO BID 08/27/19 REVIEW OF SYSTEMS CONSTITUTIONAL: Absent: fever, chills, diaphoresis, generalized weakness, malaise, loss of appetite, weight change HEENT: Absent: rhinorrhea, nasal congestion, throat pain, throat swelling, difficulty swallowing, mouth swelling, ear pain, eye pain, visual changes CARDIOVASCULAR: Absent: chest pain, syncope, palpitations, irregular heart rate, lightheadedness, peripheral edema RESPIRATORY: Absent: cough, shortness of breath, dyspnea with exertion, orthopnea, wheezing, stridor, hemoptysis GASTROINTESTINAL: Absent: abdominal pain, abdominal distension, nausea, vomiting, diarrhea, constipation, melena, hematochezia GENITOURINARY: Absent: dysuria, frequency, urgency, hesitancy, hematuria, flank pain, genital pain MUSCULOSKELETAL: Back tenderness on the R side SKIN: Absent: rash, itching, pallor HEMATOLOGIC/IMMUNOLOGIC: Absent: easy bleeding, easy bruising, lymphadenopathy, frequent infections ENDOCRINE: Absent: unexplained weight gain, unexplained weight loss, heat intolerance, cold intolerance NEUROLOGIC: RE weakness PSYCHIATRIC: Absent: anxiety, depression, suicidal or homicidal ideation, hallucinations. PHYSICAL EXAMINATION Vital Signs - 24 hr 08/27/19 08/27/19 13:52 19:02 Temperature 98.6 F Pulse Rate 59 L Pulse Rate [ 58 L Left] Respiratory 17 17 Rate Blood Pressure 140/74 Blood Pressure 143/76 [Arm] O2 Sat by Pulse 98 99 Oximetry (%) GENERAL: Awake, alert, and fully oriented, in no acute distress. HEAD: Normal with no signs of trauma. EYES: Pupils equal, round and reactive to light, extraocular movements intact, sclera anicteric, conjunctiva clear. No lid lag. EARS, NOSE, THROAT: Ears normal, nares patent, oropharynx clear without exudates. Moist mucous membranes. NECK: Normal range of motion, supple without lymphadenopathy, JVD, or masses. LUNGS: Breath sounds equal, clear to auscultation bilaterally. No wheezes, and no crackles. No accessory muscle use. HEART: Regular rate and rhythm, normal S1 and S2 without murmur, rub or gallop. ABDOMEN: Soft, nontender, not distended, normoactive bowel sounds, no guarding, no rebound, no masses. No hepatomegaly or splenomegaly. MUSCULOSKELETAL: No bony deformities or tenderness. No CVA tenderness. UPPER EXTREMITIES: 2+ pulses, warm, well-perfused. No cyanosis. No clubbing. No peripheral edema. LOWER EXTREMITIES: 2+ pulses, warm, well-perfused. No calf tenderness. No peripheral edema. NEUROLOGICAL: + LEFT facial droop, + uvular deviation to the left side, + weakness deviating the tongue to the right, + weakness CN XI, 4/4 BRACIAL MUSCLE REFLEX, + lack of proprioception in the RE, decorticate posturing of the right arm PSYCHIATRIC: Cooperative. Good eye contact. Appropriate mood and affect. SKIN: Warm, dry, normal turgor, no rashes or lesions noted, normal capillary refill. Laboratory Results - last 24 hr 08/27/19 08/27/19 08/27/19 14:50 14:50 14:50 WBC 6.0 RBC 4.67 Hgb 14.1 Hct 42.0 MCV 89.9 MCH 30.3 MCHC 33.7 RDW 13.6 Plt Count 250 MPV 8.7 Absolute Neuts (auto) 2.9 Neutrophils % 48.9 Lymphocytes % 44.4 H Monocytes % 5.5 Eosinophils % 0.4 Basophils % 0.8 Nucleated RBC % 0 PT with INR 11.10 INR 0.94 PTT (Actin FS) 28.8 Sodium 140 Potassium 4.3 Chloride 110 H Carbon Dioxide 24 Anion Gap 6 L BUN 16.1 Creatinine 0.6 Est GFR (CKD-EPI)AfAm 124.02 Est GFR (CKD-EPI)NonAf 107.00 Random Glucose 90 Calcium 8.5 Total Bilirubin 0.6 AST 9 L ALT 12 L Alkaline Phosphatase 73 Total Protein 6.4 Albumin 3.5 ASSESSMENT/PLAN: is a 63M w a PMHx of r sided CVA '04, with residual L sided weakness, epilepsy, HTN, HLD, COPD, and Hypothyroid. Patient was admitted to [facility] and had left AMA on 08/08. Patient reports 2 weeks of progressive RE weakness, facial droop, and lack of proprioception of the RE. #CVA - NL HX OF TIA (TIA), AND CEREB INFRC W/O RESID DEFICITS - Brain MRI - regions of acute/early subacute ischemic infarct in the left cerebral hemisphere around the left central hemisphere and sulcus including portions of the left precentral and post central gyri. abnormal signal of L internal carotid artery, compatible with slow flow/occlusion. - Placed on telemetry - echocardiogram - serial ekg - baby aspirin continued #Seizure - Seizure precautions - Depekote levels to be monitored - Vimpat #PX - Heparin 5000 SQ #HTN - continue home meds - Atenelol #Hypothyroid - continue synthroid home dose # COPD - Albuterol inhaler DISPO - telemetry - full code - COVID JANNET pending Visit type - Emergency Visit Emergency Visit: Yes ED Registration Date: 08/27/19 Care time: The patient presented to the Emergency Department on the above date and was hospitalized for further evaluation of their emergent condition. - New Patient This patient is new to me today: Yes Date on this admission: 08/27/19 - Critical Care Critical Care patient: No ATTENDING PHYSICIAN STATEMENT I saw and evaluated the patient. I reviewed the resident's note and discussed the case with the resident. I agree with the resident's findings and plan as documented. SUBJECTIVE: OBJECTIVE: ASSESSMENT AND PLAN:
[2019-08-27] MEDS: LACOSAMIDE 50 MG TABLET PO SCH (22:19)
[2019-08-27] MEDS: DIVALPROEX SODIUM 500 MG TABLET E.C. PO SCH (22:19)
[2019-08-28 02:24] LABS: URINE APPEARANCE CLEAR; URINE BILIRUBIN NEGATIVE (NEGATIVE); URINE COLOR YELLOW; URINE GLUCOSE (UA) NEGATIVE (NEGATIVE); URINE KETONE TRACE (NEGATIVE); URINE LEUK ESTERASE NEGATIVE (NEGATIVE); URINE NITRITE NEGATIVE (NEGATIVE); URINE PROTEIN NEGATIVE (NEGATIVE)
[2019-08-28] MEDS: LEVOTHYROXINE NA 75 MCG TABLET (FP) PO SCH (06:08)
[2019-08-28 07:23] LABS: INR 0.98 (0.83-1.09); PROTHROMBIN TIME (PATIENT) 11.6 SEC (9.7-13.0)
[2019-08-28 07:26] LABS: ACTIVATED PTT 27.6 SECONDS (25.2-36.5)
[2019-08-28 07:30] LABS: BASO % 0.4 % (0-2.0); EOS % 1.1 % (0-4.5); HEMOGLOBIN 13.7 GM/dL (11.7-16.9); LYMPH % 50.4 % (8-40); MCH 29.8 pg (25.7-33.7); MCHC 33.4 g/dl (32.0-35.9); MEAN CELL VOLUME 89.1 fl (80-96); MEAN PLT VOLUME 8.8 fl (7.5-11.1); MONO % 6.4 % (3.8-10.2); NEUT % 41.7 % (42.8-82.8); PLATELET COUNT 266 K/MM3 (134-434); RDW 13.5 % (11.9-15.9); WHITE BLOOD COUNT 6.2 K/mm3 (4.0-10.0)
[2019-08-28 07:49] LABS: ALBUMIN 3.1 g/dl (3.4-5.0); BILIRUBIN,TOTAL 0.3 mg/dL (0.2-1); CALCIUM 8.3 mg/dL (8.5-10.1); CREATININE 0.7 mg/dL (0.55-1.3); MAGNESIUM 2.3 mg/dL (1.8-2.4); PHOSPHOROUS 4.3 mg/dL (2.5-4.9); POTASSIUM 4.3 mmol/L (3.5-5.1)
[2019-08-28] MEDS ORDERED: PATIENT'S OWN MEDICATION (NON-FORMULARY) (Carisoprodol [Soma] 350 MG) PO PRN (08:31)
[2019-08-28] MEDS: DIVALPROEX SODIUM 500 MG TABLET E.C. PO SCH ×2 (09:07→21:36)
[2019-08-28] MEDS: CLOPIDOGREL BISULFATE 75 MG TABLET (FP) PO SCH (09:08)
[2019-08-28] MEDS: oxyCODONE HCL 5 MG TABLET PO SCH ×2 (09:08→21:37)
[2019-08-28] MEDS: ASPIRIN 81 MG CHEWABLE TABLETS PO SCH (09:08)
[2019-08-28] MEDS: LACOSAMIDE 50 MG TABLET PO SCH ×2 (09:08→21:36)
[2019-08-28] MEDS: ACETAMINOPHEN 325 MG TABLET (FP) PO SCH ×2 (09:11→21:36)
[2019-08-28] MEDS ORDERED: HYDROCODONE ACETAMIN PO SCH (10:00)
--- NOTE | 2019-08-28 11:36 | EKG ---
Test Reason : Blood Pressure : / mmHG Vent. Rate : 058 BPM Atrial Rate : 058 BPM P-R Int : 138 ms QRS Dur : 096 ms QT Int : 418 ms P-R-T Axes : 051 046 079 degrees QTc Int : 410 ms SINUS BRADYCARDIA OTHERWISE NORMAL ECG WHEN COMPARED WITH ECG OF 08-AUG-2019 13:58, NO SIGNIFICANT CHANGE WAS FOUND Confirmed by KELI MILLER MD ([id number]) on 08/28/2019 11:35:39 AM Referred By: Confirmed By:KELI MILLER MD
--- NOTE | 2019-08-28 14:36 | PN ---
Progress Note (short form) - Note Progress Note: SUBJECTIVE Seen and examined at bedside. No change in condition overnight. CTA head and neck shows 95% occlusion of left carotid artery. Dr. Tate consulted OBJECTIVE Last Vital Signs Temp Pulse Resp BP Pulse Ox 97.7 F 63 18 123/66 97 08/28/19 10:00 08/28/19 10:00 08/28/19 10:00 08/28/19 10:00 08/27/19 20:00 PE: GEN: sitting in bed, NAD HEENT: NC/AT BRITTA RESP: CTAB CARDS: RRR,-MRG EXT: no swelling/edema Neuro: A&OX3, RUE weakness, contractures, proprioception deficit IMAGING Brain MRI: IMPRESSION: 1. There are regions of acute/early subacute ischemic infarct in the left cerebral hemisphere including infarct centered around the left central sulcus including portions of the left precentral and postcentral gyri, left parietal lobe cortex, small portion of the left occipital lobe cortex and in the left tanner radiata. The presence of the ischemic changes were discussed by Dr. Beard with Dr. Mota after the completion of the MRI of the brain. The patient was sent to the emergency room at [facility]. 2. There is abnormal signal within the visualized left internal carotid artery compatible with slow flow and/or occlusion. CT or MR angiography of the head and neck are recommended to evaluate for vessel stenosis, occlusion and dissection. 3. Chronic region of encephalomalacia and hemosiderin deposition compatible with an old hemorrhage in the history right basal ganglia and right tanner radiata. 4. There are mild chronic small vessel ischemic changes in the cerebral white matter. MRI Chest: The right and left brachial plexuses are symmetric unremarkable with no evidence of apical or supraclavicular mass lesion. No suspicious pathologic bone marrow replacement cervical vertebrae. No evidence of cord compression. On the right side the cervical foramina and the branches of the right brachial plexus unremarkable at this noncontrast study.. ASSESSMENT/PLAN: 63 yo M PMH of hemorrhagic stroke(2008- ) with residual L side weakness, seizure disorder (on vimpat and depakote), migraines, COPD, Pancreatic cyst, L kidney cyst, nephrolithiasis, HTN, HLD, Hypothyroidism,hx of R rotator cuff injury, presenting from Dr. Wells for R arm ataxia. Pt is admitted for L cerebral infarct CVA- L cerebral infarct In setting of 95% stenosis of L carotid artery - MRI findings above - Neuro Dr. Wells on board - tele monitoring, plavix 75 qd,c/w asa daily, statin - echo - PT/OT Hx seizure disorder -cont depakote/vimpat 95% stenosis of L carotid artery Dr. Tate from vascular consulted Continue aspirin, statin, Plavix Patient will require endarterectomy: Timing to be discussed with vascular team Hypothyroid - cont synthroid - get TSH DVTppx: SCDs Visit type - Emergency Visit Emergency Visit: Yes ED Registration Date: 08/27/19 Care time: The patient presented to the Emergency Department on the above date and was hospitalized for further evaluation of their emergent condition. - New Patient This patient is new to me today: No - Critical Care Critical Care patient: No
[2019-08-28] MEDS ORDERED: PT OWN MED DRAWER 7, Y5N ONE ×3 (18:48→22:18)
[2019-08-28] MEDS: ATORVASTATIN CA 80 MG TABLET (FP) PO SCH (21:36)
[2019-08-28] MEDS: CYCLOBENZAPRINE HCL 5 MG TABLET PO PRN (22:10)
[2019-08-29] MEDS: LEVOTHYROXINE NA 75 MCG TABLET (FP) PO SCH (06:04)
[2019-08-29 06:51] LABS: BASO % 0.5 % (0-2.0); EOS % 0.8 % (0-4.5); HEMATOCRIT 39.8 % (35.4-49); HEMOGLOBIN 13.5 GM/dL (11.7-16.9); MCH 30.1 pg (25.7-33.7); MEAN CELL VOLUME 88.5 fl (80-96); MEAN PLT VOLUME 8.7 fl (7.5-11.1); MONO % 6.2 % (3.8-10.2); NEUT % 39.5 % (42.8-82.8); PLATELET COUNT 266 K/MM3 (134-434); RBC 4.49 M/mm3 (4.00-5.60); RDW 13.9 % (11.9-15.9); WHITE BLOOD COUNT 5.6 K/mm3 (4.0-10.0)
[2019-08-29 07:19] LABS: BLOOD UREA NITROGEN 18.8 mg/dL (7-18); CREATININE 0.7 mg/dL (0.55-1.3); POTASSIUM 4.1 mmol/L (3.5-5.1)
--- NOTE | 2019-08-29 08:35 | PN ---
Physical Exam: SUBJECTIVE: Patient seen and examined Patient was examined at bedside. Patient reports no acute changes since last seen. Patient reports no acute events overnight. Patient denies further focal neurological problems OBJECTIVE: Vital Signs Period Temp Pulse Resp BP Sys/Christensen Pulse Ox Last 24 Hr 97 F-98.2 F 60-68 18-20 122-137/64-82 96 GENERAL: The patient is awake, alert, and fully oriented, in no acute distress. HEAD: Normal with no signs of trauma. EYES: PERRL, extraocular movements intact, sclera anicteric, conjunctiva clear. No ptosis. ENT: Ears normal, nares patent, oropharynx clear without exudates, moist mucous membranes. NECK: Trachea midline, full range of motion, supple. LUNGS: Breath sounds equal, clear to auscultation bilaterally, no wheezes, no crackles, no accessory muscle use. HEART: Regular rate and rhythm, S1, S2 without murmur, rub or gallop. ABDOMEN: Soft, nontender, nondistended, normoactive bowel sounds, no guarding, no rebound, no hepatosplenomegaly, no masses. EXTREMITIES: 2+ pulses, warm, well-perfused, no edema. NEUROLOGICAL: + LEFT facial droop, + uvular deviation to the left side, + weakness deviating the tongue to the right, + weakness CN XI, 4/4 BRACIAL MUSCLE REFLEX, + lack of proprioception in the RE, decorticate posturing of the right arm PSYCH: Normal mood, normal affect. SKIN: Warm, dry, normal turgor, no rashes or lesions noted Laboratory Results - last 24 hr 08/27/19 08/28/19 08/28/19 14:50 16:15 21:35 WBC RBC Hgb Hct MCV MCH MCHC RDW Plt Count MPV Absolute Neuts (auto) Neutrophils % Lymphocytes % Monocytes % Eosinophils % Basophils % Nucleated RBC % Sodium Potassium Chloride Carbon Dioxide Anion Gap BUN Creatinine Est GFR (CKD-EPI)AfAm Est GFR (CKD-EPI)NonAf POC Glucometer 91 95 Random Glucose Calcium COVID-19 (JANNET) Not detected 08/29/19 08/29/19 06:20 06:20 WBC 5.6 RBC 4.49 Hgb 13.5 Hct 39.8 MCV 88.5 MCH 30.1 MCHC 34.0 RDW 13.9 Plt Count 266 MPV 8.7 Absolute Neuts (auto) 2.2 Neutrophils % 39.5 L Lymphocytes % 53.0 H Monocytes % 6.2 Eosinophils % 0.8 Basophils % 0.5 Nucleated RBC % 0 Sodium 140 Potassium 4.1 Chloride 106 Carbon Dioxide 26 Anion Gap 7 L BUN 18.8 H Creatinine 0.7 Est GFR (CKD-EPI)AfAm 116.40 Est GFR (CKD-EPI)NonAf 100.43 POC Glucometer Random Glucose 100 Calcium 8.0 L COVID-19 (JANNET) Active Medications Generic Name Dose Route Start Last Admin Trade Name Freq PRN Reason Stop Dose Admin Acetaminophen 325 mg 08/28/19 10:00 08/28/19 21:36 Tylenol - PO 325 mg BID DARRYN Administration Aspirin 81 mg 08/28/19 10:00 08/28/19 09:08 Asa - PO 81 mg DAILY DARRYN Administration Atorvastatin Calcium 80 mg 08/28/19 22:00 08/28/19 21:36 Lipitor - PO 80 mg HS DARRYN Administration Clopidogrel Bisulfate 75 mg 08/28/19 10:00 08/28/19 09:08 Plavix - PO 75 mg DAILY DARRYN Administration Cyclobenzaprine HCl 5 mg 08/28/19 08:41 08/28/19 22:10 Cyclobenzaprine Hcl PO 5 mg Q6H PRN Administration PAIN LEVEL 4 - 6 Divalproex Sodium 1,000 mg 08/27/19 22:00 08/28/19 21:36 Depakote - PO 1,000 mg BID DARRYN Administration Lacosamide 200 mg 08/27/19 22:00 08/28/19 21:36 Vimpat - PO 200 mg BID DARRYN Administration Levothyroxine Sodium 75 mcg 08/28/19 07:00 08/29/19 06:04 Synthroid - PO 75 mcg DAILY@0700 DARRYN Administration Oxycodone HCl 5 mg 08/28/19 10:00 08/28/19 21:37 Roxicodone - PO 5 mg BID DARRYN Administration ASSESSMENT/PLAN: Lashaun is a 63M previously admitted for RUE focal neurological pathology on 07/2019 and had left AMA. Patient has a PMHx of seizure disorder - on vimpat and depakote - hemorrhagic stroke in - avm with residual L side weakness, migraines, COPD, Pancreatic cyst, L kidney cyst, nephrolithiasis, HTN, HLD, Hypothyroidism, hx of R rotator cuff injury, presenting from Dr. Wells for R arm ataxia and admitted for L cerebral infarct. #CVA - MRI shows evidence of 95% stenosis of L internal carotid artery likely the cause of the L cerebral infarct - patient placed on Tele - continue plavix 75mg/asa/statin as per cardilogy - Vascular surgery consult - Dr. Tate - no endarterectomy at this time - Dr. Odonnell consulted for neurology input - echo in order - PT ordered - OT will have to be done outpatient #seizures -cont depakote/vimpat - Depakote levels #Hypothyroid - cont synthroid - get TSH ATTENDING PHYSICIAN STATEMENT I saw and evaluated the patient. I reviewed the resident's note and discussed the case with the resident. I agree with the resident's findings and plan as documented. SUBJECTIVE: OBJECTIVE: ASSESSMENT AND PLAN:
[2019-08-29] MEDS: DIVALPROEX SODIUM 500 MG TABLET E.C. PO SCH ×2 (10:09→21:49)
[2019-08-29] MEDS: ACETAMINOPHEN 325 MG TABLET (FP) PO SCH ×2 (10:11→21:51)
[2019-08-29] MEDS: ASPIRIN 81 MG CHEWABLE TABLETS PO SCH (10:11)
[2019-08-29] MEDS: oxyCODONE HCL 5 MG TABLET PO SCH ×2 (10:16→21:50)
[2019-08-29] MEDS: CLOPIDOGREL BISULFATE 75 MG TABLET (FP) PO SCH (10:16)
[2019-08-29] MEDS: LACOSAMIDE 50 MG TABLET PO SCH ×2 (10:17→21:49)
--- NOTE | 2019-08-29 13:13 | PN ---
Teaching Attending Note Name of Resident: Wilman Irvin ATTENDING PHYSICIAN STATEMENT I saw and evaluated the patient. I reviewed the resident's note and discussed the case with the resident. I agree with the resident's findings and plan as documented. Seen and examined at bedside. No change in condition overnight. CTA head and neck shows 95% occlusion of left carotid artery. Dr. Tate consulted OBJECTIVE Last Vital Signs Temp Pulse Resp BP Pulse Ox 97.8 F 68 18 141/80 97 08/29/19 10:08/29/19 10:08/29/19 10:08/29/19 10:08/29/19 09:00 PE: GEN: sitting in bed, NAD HEENT: NC/AT BRITTA RESP: CTAB CARDS: RRR,-MRG EXT: no swelling/edema Neuro: A&OX3, RUE weakness, contractures, proprioception deficit IMAGING Brain MRI: IMPRESSION: 1. There are regions of acute/early subacute ischemic infarct in the left cerebral hemisphere including infarct centered around the left central sulcus including portions of the left precentral and postcentral gyri, left parietal lobe cortex, small portion of the left occipital lobe cortex and in the left tanner radiata. The presence of the ischemic changes were discussed by Dr. Beard with Dr. Mota after the completion of the MRI of the brain. The patient was sent to the emergency room at [facility]. 2. There is abnormal signal within the visualized left internal carotid artery compatible with slow flow and/or occlusion. CT or MR angiography of the head and neck are recommended to evaluate for vessel stenosis, occlusion and dissection. 3. Chronic region of encephalomalacia and hemosiderin deposition compatible with an old hemorrhage in the history right basal ganglia and right tanner radiata. 4. There are mild chronic small vessel ischemic changes in the cerebral white matter. MRI Chest: The right and left brachial plexuses are symmetric unremarkable with no evidence of apical or supraclavicular mass lesion. No suspicious pathologic bone marrow replacement cervical vertebrae. No evidence of cord compression. On the right side the cervical foramina and the branches of the right brachial plexus unremarkable at this noncontrast study.. ASSESSMENT/PLAN: 63 yo M PMH of hemorrhagic stroke(2008- ) with residual L side weakness, seizure disorder (on vimpat and depakote), migraines, COPD, Pancreatic cyst, L kidney cyst, nephrolithiasis, HTN, HLD, Hypothyroidism,hx of R rotator cuff injury, presenting from Dr. Wells for R arm ataxia. Pt is admitted for L cerebral infarct CVA- L cerebral infarct In setting of 95% stenosis of L carotid artery - MRI findings above - Neuro Dr. Wells on board - tele monitoring, plavix 75 qd,c/w asa daily, statin - echo - PT/OT Hx seizure disorder -cont depakote/vimpat 95% stenosis of L carotid artery Dr. Tate from vascular consulted Continue aspirin, statin, Plavix Patient will require endarterectomy: Timing to be discussed with vascular team Hypothyroid - cont synthroid - get TSH
[2019-08-29] MEDS ORDERED: PT OWN MED DRAWER 7, Y5N ONE (21:37)
[2019-08-29] MEDS: ATORVASTATIN CA 80 MG TABLET (FP) PO SCH (21:49)
[2019-08-29] MEDS: CYCLOBENZAPRINE HCL 5 MG TABLET PO PRN (21:52)
[2019-08-30] MEDS: LEVOTHYROXINE NA 75 MCG TABLET (FP) PO SCH (06:01)
[2019-08-30 07:17] LABS: BASO % 0.6 % (0-2.0); EOS % 0.5 % (0-4.5); HEMATOCRIT 40.5 % (35.4-49); HEMOGLOBIN 13.9 GM/dL (11.7-16.9); LYMPH % 47.5 % (8-40); MCH 30.1 pg (25.7-33.7); MCHC 34.2 g/dl (32.0-35.9); MEAN PLT VOLUME 8.6 fl (7.5-11.1); MONO % 6.4 % (3.8-10.2); PLATELET COUNT 249 K/MM3 (134-434); RDW 13.6 % (11.9-15.9); WHITE BLOOD COUNT 6.3 K/mm3 (4.0-10.0)
[2019-08-30 07:50] LABS: ALBUMIN 3.2 g/dl (3.4-5.0); BILIRUBIN,TOTAL 0.4 mg/dL (0.2-1); CALCIUM 8.2 mg/dL (8.5-10.1); CREATININE 0.7 mg/dL (0.55-1.3); PHOSPHOROUS 3.7 mg/dL (2.5-4.9); POTASSIUM 4.2 mmol/L (3.5-5.1); TOT PROT 6.2 g/dl (6.4-8.2)
--- NOTE | 2019-08-30 09:14 | CONSULT ---
Admitting History and Physical - Primary Care Physician PCP: Tomer Alex - Admission History of Present Illness: Per EMR- 63 yo M PMH of hemorrhagic stroke(2008- av) with residual L side weakness, seizure disorder (on vimpat and depakote), migraines, COPD, Pancreatic cyst, L kidney cyst, nephrolithiasis, HTN, HLD, Hypothyroidism,hx of R rotator cuff injury, admitted for L cerebral infarct CTA head and neck shows 95% occlusion of left carotid artery. Brain MRI: IMPRESSION: 1. There are regions of acute/early subacute ischemic infarct in the left cerebral hemisphere including infarct centered around the left central sulcus including portions of the left precentral and postcentral gyri, left parietal lobe cortex, small portion of the left occipital lobe cortex and in the left tanner radiata. The presence of the ischemic changes were discussed by Dr. Beard with Dr. Mota after the completion of the MRI of the brain. The patient was sent to the emergency room at [facility]. 2. There is abnormal signal within the visualized left internal carotid artery compatible with slow flow and/or occlusion. CT or MR angiography of the head and neck are recommended to evaluate for vessel stenosis, occlusion and dissection. 3. Chronic region of encephalomalacia and hemosiderin deposition compatible with an old hemorrhage in the history right basal ganglia and right tanner radiata. 4. There are mild chronic small vessel ischemic changes in the cerebral white matter. MRI Chest: The right and left brachial plexuses are symmetric unremarkable with no evidence of apical or supraclavicular mass lesion. No suspicious pathologic bone marrow replacement cervical vertebrae. No evidence of cord compression. On the right side the cervical foramina and the branches of the right brachial plexus unremarkable at this noncontrast study.. Selected Entries 08/29/19 08/29/19 08/29/19 02:00 06:00 09:00 Breakfast Diet Tolerated Supper Temperature 98.2 F 97.8 F Pulse Rate Blood Pressure 133/64 123/68 O2 Sat by Pulse 97 Oximetry (%) Oxygen Delivery Nasal Cannula Method 08/29/19 08/29/19 08/29/19 10:00 10:24 10:28 Breakfast 75% Diet Tolerated Fair Supper Temperature 97.8 F Pulse Rate Blood Pressure 141/80 O2 Sat by Pulse 97 Oximetry (%) Oxygen Delivery Nasal Cannula Method 08/29/19 08/29/19 08/29/19 14:00 18:01 21:00 Breakfast Diet Tolerated Supper Temperature 97.6 F 97.3 F L Pulse Rate Blood Pressure 129/81 117/77 O2 Sat by Pulse 98 Oximetry (%) Oxygen Delivery Nasal Cannula Method 08/29/19 08/29/19 08/30/19 22:00 22:44 02:00 Breakfast Diet Tolerated Well Supper 100% Temperature 97.7 F 97.5 F L Pulse Rate 67 Blood Pressure 138/75 144/72 O2 Sat by Pulse Oximetry (%) Oxygen Delivery Method 08/30/19 06:00 Breakfast Diet Tolerated Supper Temperature 97.6 F Pulse Rate 61 Blood Pressure 127/78 O2 Sat by Pulse Oximetry (%) Oxygen Delivery Method Laboratory Tests 08/27/19 14:50 COVID-19 (JANNET) Not detected History Source: Patient Limitations to Obtaining History: Clinical Condition (Appropriate, pt reports needing to stop and think to retrieve words. Good functional communication) - Past Medical History [employer]: Yes: CVA, Seizure, Other (Thalamic pain syndrome) Cardiovascular: Yes: HTN Pulmonary: Yes: Bronchitis, COPD Gastrointestinal: Yes: Other (pancreatic cyst) Musculoskeletal: Yes: Chronic low back pain, Hemiparesis, Hemiplegia, Osteoarthritis (Hip), Other (Chronic neck pain, skin tag, rosacea) ENT: Yes: Sinusitis Endocrine: Yes: Hypothyroidism - Past Surgical History Past Surgical History: Yes: Hernia Repair (L x2) - Smoking History Smoking history: Current every day smoker Have you smoked in the past 12 months: No Aproximately how many cigarettes per day: 2 If you are a former smoker, when did you quit?: 04/2017 - Alcohol/Substance Use Hx Alcohol Use: No - Social History ADL: Family Assistance History - Admission Reason For Visit: IMPAIRED PROPRIOCEPTION CVA - Diagnostics X-ray: Report Reviewed CT Scan: Report Reviewed MRI: Report Reviewed - General Mental Status: Alert and Oriented, Awake and Alert, Able to Follow Commands Attention: Intact Ability to Follow Directions: Excellent Head/Neck Control: WFL - Hearing Hearing: Normal Hearing: Normal Speech Evaluation - Communication Primary Language: [place] Communication: Yes: Within Normal Limits Oral Expression Ability: Yes: Mild Impairment (Appropriate, pt reports needing to stop and think to retrieve words. Good functional communication) - Speech Production Able to Make Needs Known: Yes: WNL Intelligibility: Yes: WNL - Speech Characteristics Voice Loudness: Normal Voice Pitch: Yes: Normal Voice Phonatory-based Quality: Yes: Normal Nasal Resonance: Normal Articulation: Yes: Precise Rate of Speech: Intact - Language/Auditory Comprehension Follows: Yes: 2 Stage Simple Commands Observation: Able to respond to yes/no queries: Yes, Yes/No Confusion: No, Comprehends Conversational Speech: Yes - Language/Verbal Expression Aphasia: Yes: Anomia (compensates well) Able to Respond to Simple Queries: Yes: WNL Able to Communicate Wants and Needs: Yes: WNL Functional Communication Status: Yes: WNL Attention: Yes: Intact - Memory/Perception detention Memory: Yes: WNL Short Term Memory: Yes: WNL - Swallow Evaluation/Bedside Assessment Current Nutritional Intake: Regular, Thin Liquids Oral Secretions: Yes: WFL Dentition: Yes: Adequate Facial Symmetry at Rest: Symmetrical, Facial Droop Left (slight) Facial Movement: Controlled Sensation: Normal Against Resistance Opening: Normal Against Resistance Closing: Normal Pucker Lips: Normal Smile: Normal Lingual Movement: Normal, Symmetric Lingual Speed of Movement: Normal Lingual Movement Strgth Against Opposition: Normal Lingual Movement Characteristics: Normal Velopharyngeal Movement: Normal Laryngeal Elevation: WFL Rate of Intake: WFL Bolus Size: WFL Labial Seal: WFL A-P Transit: WFL Timing of Swallow: WFL Coughing/Throat Clear: No Change in Voice: No Recommendations - Speech Evaluation, Impression/Plan Impression: Appropriate, pt reports needing to stop and think to retrieve words. Good functional communication.Dislikes hospital food. "Only eats 1 meal a day at home" - Dysphagia Impressions/Plan Swallowing Skills: [facility] Dysphagia Impressions: No Impairment *Silent aspiration: cannot be R/O at bedside Recommendations: Other (Provide food preferences) - Recommendations Diet Consistency: Regular Medication Administration: Whole with water Liquids: Thin Liquids
--- NOTE | 2019-08-30 09:38 | PN ---
Progress Note, Physician History of Present Illness: vents noted Chart reviewed alert awake oriented Feels about 90% better Noted the carotid Doppler - Current Medication List Current Medications: Active Medications Acetaminophen (Tylenol -) 325 mg PO BID [facility] Last Admin: 08/29/19 21:51 Dose: 325 mg Documented by: Aspirin (Asa -) 81 mg PO DAILY [facility] Last Admin: 08/29/19 10:11 Dose: 81 mg Documented by: Atorvastatin Calcium (Lipitor -) 80 mg PO HS [facility] Last Admin: 08/29/19 21:49 Dose: 80 mg Documented by: Clopidogrel Bisulfate (Plavix -) 75 mg PO DAILY [facility] Last Admin: 08/29/19 10:16 Dose: 75 mg Documented by: Cyclobenzaprine HCl (Cyclobenzaprine Hcl) 5 mg PO Q6H PRN PRN Reason: PAIN LEVEL 4 - 6 Last Admin: 08/29/19 21:52 Dose: 5 mg Documented by: Divalproex Sodium (Depakote -) 1,000 mg PO BID [facility] Last Admin: 08/29/19 21:49 Dose: 1,000 mg Documented by: Lacosamide (Vimpat -) 200 mg PO BID [facility] Last Admin: 08/29/19 21:49 Dose: 200 mg Documented by: Levothyroxine Sodium (Synthroid -) 75 mcg PO DAILY@0700 [facility] Last Admin: 08/30/19 06:01 Dose: 75 mcg Documented by: Oxycodone HCl (Roxicodone -) 5 mg PO BID [facility] Last Admin: 08/29/19 21:50 Dose: 5 mg Documented by: - Objective Vital Signs: Vital Signs Temperature 97.9 F 08/30/19 09:17 Pulse Rate 72 08/30/19 09:17 Respiratory Rate 18 08/30/19 09:17 Blood Pressure 119/75 08/30/19 09:17 O2 Sat by Pulse Oximetry (%) 98 08/29/19 21:00 Constitutional: Yes: Well Nourished Eyes: Yes: WNL Neurological: Yes: Alert, Oriented, Babinski positive, Cran Nerves II-XII Intact ...Motor Strength: RUE (4/5 exterity problem) Labs: CBC, BMP 08/30/19 06:30 08/30/19 06:30 INR, PTT INR 0.98 (0.83-1.09) 08/28/19 05:45 Problem List - Problems (1) H/O: CVA (cerebrovascular accident) Assessment/Plan: 1. Continue aspirin and Plavix. 2. Tight blood pressure control. 3. Tight cholesterol control with a target pleasant 170. 3. We'll arrange for carotid endarterectomy as an outpatient. Code(s): Z86.73 - PRSNL HX OF TIA (TIA), AND CEREB INFRC W/O RESID DEFICITS
[2019-08-30] MEDS: LACOSAMIDE 50 MG TABLET PO SCH (09:45)
[2019-08-30] MEDS: ACETAMINOPHEN 325 MG TABLET (FP) PO SCH (09:46)
[2019-08-30] MEDS: ASPIRIN 81 MG CHEWABLE TABLETS PO SCH (09:46)
[2019-08-30] MEDS: oxyCODONE HCL 5 MG TABLET PO SCH (09:46)
[2019-08-30] MEDS: DIVALPROEX SODIUM 500 MG TABLET E.C. PO SCH (09:47)
[2019-08-30] MEDS: CLOPIDOGREL BISULFATE 75 MG TABLET (FP) PO SCH (09:47)
--- NOTE | 2019-08-30 12:12 | CONSULT ---
Consult Consult Specialty:: Vascular Surgery Reason for Consultation:: left ICA stenosis 95%. REcent acute stroke. Pt came in for syncopal episode. - History Source History Provided By: Patient Limitations to Obtaining History: No Limitations - Past Medical History SHOER: Yes: CVA, Seizure, Other (Thalamic pain syndrome) Cardio/Vascular: Yes: HTN Pulmonary: Yes: Bronchitis, COPD Gastrointestinal: Yes: Other (pancreatic cyst) Musculoskeletal: Yes: Chronic low back pain, Hemiparesis, Hemiplegia, Osteoarthritis (Hip), Other (Chronic neck pain, skin tag, rosacea) ENT: Yes: Sinusitis Endocrine: Yes: Hypothyroidism - Past Surgical History Past Surgical History: Yes: Hernia Repair (L x2) - Alcohol/Substance Use Hx Alcohol Use: No - Smoking History Smoking history: Current every day smoker Have you smoked in the past 12 months: No Aproximately how many cigarettes per day: 2 If you are a former smoker, when did you quit?: 04/2017 - Social History Usual Living Arrangement: With Spouse ADL: Family Assistance Home Medications - Allergies Allergies/Adverse Reactions: Allergies Allergy/AdvReac Type Severity Reaction Status Date / Time fluconazole [From Diflucan] Allergy Severe anaphylaxis Verified 08/08/19 13:50 - Home Medications Home Medications: Ambulatory Orders Atenolol [Tenormin -] 50 mg PO DAILY 10/14/14 Divalproex [Depakote -] 1,000 mg PO BID 10/14/14 Zolpidem Tartrate [Ambien] 10 mg PO HS 01/02/16 Albuterol Sulfate Inhaler - [Ventolin HFA Inhaler -] 1 - 2 inh PO Q4H #1 inhaler 07/16/17 Levothyroxine [Synthroid -] 75 mcg PO DAILY 07/16/17 Mirtazapine [Remeron -] 30 mg PO DAILY 07/16/17 Carisoprodol [Soma] 350 mg PO Q6H PRN 02/25/18 Lacosamide [Vimpat] 200 mg PO BID 02/26/18 Hydrocodone-Acetamin 7.5-325 1 tab PO BID 08/27/19 Review of Systems - Review of Systems Constitutional: reports: No Symptoms Eyes: reports: No Symptoms HENT: reports: No Symptoms Neck: reports: No Symptoms Cardiovascular: reports: No Symptoms Respiratory: reports: No Symptoms Gastrointestinal: reports: No Symptoms Genitourinary: reports: No Symptoms Breasts: reports: No Symptoms Reported Musculoskeletal: reports: No Symptoms Integumentary: reports: No Symptoms Neurological: reports: No Symptoms Endocrine: reports: No Symptoms Hematology/Lymphatic: reports: No Symptoms Psychiatric: reports: No Symptoms Physical Exam Vital Signs: Vital Signs Temperature 97.9 F 08/30/19 09:17 Pulse Rate 72 08/30/19 09:17 Respiratory Rate 18 08/30/19 09:17 Blood Pressure 119/75 08/30/19 09:17 O2 Sat by Pulse Oximetry (%) 98 08/30/19 11:57 Constitutional: Yes: Well Nourished, No Distress, Calm Eyes: Yes: WNL, Conjunctiva Clear, EOM Intact HENT: Yes: WNL, Atraumatic, Normocephalic Neck: Yes: WNL, Supple, Trachea Midline Cardiovascular: Yes: WNL, Regular Rate and Rhythm Respiratory: Yes: WNL, Regular, CTA Bilaterally Gastrointestinal: Yes: WNL, Normal Bowel Sounds ...Rectal Exam: Yes: WNL Renal/: Yes: WNL Breast(s): Yes: WNL Musculoskeletal: Yes: WNL Extremities: Yes: WNL Peripheral Pulses WNL: Yes Integumentary: Yes: WNL Neurological: Yes: WNL, Alert, Oriented ...Motor Strength: WNL Psychiatric: Yes: WNL Labs: CBC, BMP 08/30/19 06:30 08/30/19 06:30 Problem List - Problems (1) Cerebrovascular accident (CVA) Assessment/Plan: Pt with left ICA 95% stenosis with recent stroke. Pt with weakness of right upper ext. Pt has numbness in that arm. That has been going on for over a month. Pt has neuropathic issues in right arm from cervical spine disease. With a new stroke -- pt needs to rehab for the next 6 weeks. Pt will then come back to office for elective left CEA. The stroke needs to heal before intervention. Gurinder Tate DO Code(s): I63.9 - CEREBRAL INFARCTION, UNSPECIFIED Qualifiers: CVA mechanism: unspecified Qualified Code(s): I63.9 - Cerebral infarction, unspecified
--- NOTE | 2019-08-30 13:01 | PN ---
Teaching Attending Note Name of Resident: Wilman Irvin ATTENDING PHYSICIAN STATEMENT I saw and evaluated the patient. I reviewed the resident's note and discussed the case with the resident. I agree with the resident's findings and plan as documented. Seen and examined at bedside. Condition unchanged. Patient hemodynamically stable. Patient is medically cleared for discharge and will follow up with neurology and needs vascular surgery as an outpatient for further management of stroke and for a left carotid endarterectomy. Patient will receive outpatient PT/OT OBJECTIVE Last Vital Signs Temp Pulse Resp BP Pulse Ox 97.9 F 72 18 119/75 98 08/30/19 09:17 08/30/19 09:17 08/30/19 09:17 08/30/19 09:08/30/19 11:57 PE: GEN: sitting in bed, NAD HEENT: NC/AT BRITTA RESP: CTAB CARDS: RRR,-MRG EXT: no swelling/edema Neuro: A&OX3, RUE weakness, contractures, proprioception deficit IMAGING Brain MRI: IMPRESSION: 1. There are regions of acute/early subacute ischemic infarct in the left cerebral hemisphere including infarct centered around the left central sulcus including portions of the left precentral and postcentral gyri, left parietal lobe cortex, small portion of the left occipital lobe cortex and in the left tanner radiata. The presence of the ischemic changes were discussed by Dr. Beard with Dr. Mota after the completion of the MRI of the brain. The patient was sent to the emergency room at [facility]. 2. There is abnormal signal within the visualized left internal carotid artery compatible with slow flow and/or occlusion. CT or MR angiography of the head and neck are recommended to evaluate for vessel stenosis, occlusion and dissection. 3. Chronic region of encephalomalacia and hemosiderin deposition compatible with an old hemorrhage in the history right basal ganglia and right tanner radiata. 4. There are mild chronic small vessel ischemic changes in the cerebral white matter. MRI Chest: The right and left brachial plexuses are symmetric unremarkable with no evidence of apical or supraclavicular mass lesion. No suspicious pathologic bone marrow replacement cervical vertebrae. No evidence of cord compression. On the right side the cervical foramina and the branches of the right brachial plexus unremarkable at this noncontrast study.. ASSESSMENT/PLAN: 63 yo M PMH of hemorrhagic stroke(2008- ) with residual L side weakness, seizure disorder (on vimpat and depakote), migraines, COPD, Pancreatic cyst, L kidney cyst, nephrolithiasis, HTN, HLD, Hypothyroidism,hx of R rotator cuff injury, presenting from Dr. Wells for R arm ataxia. Pt is admitted for L cerebral infarct. Patient found to have left carotid artery with 95% stenosis. Seen by neurology and vascular surgery. Will be discharged on aspirin, Plavix, statin with physical therapy and will follow-up as an outpatient for left carotid endarterectomy in 3 to 6 weeks.
[2019-08-30 13:17] VITALS: BP 125/80; PULSE 89; TEMP 98.2
--- NOTE | 2019-08-30 15:43 | DS ---
Physical Exam: SUBJECTIVE: Patient seen and examined OBJECTIVE: Vital Signs Period Temp Pulse Resp BP Sys/Christensen Pulse Ox Last 24 Hr 97.3 F-98.2 F 61-89 18-19 117-144/72-80 98-98 PHYSICAL EXAM GENERAL: The patient is awake, alert, and fully oriented, in no acute distress. HEAD: Normal with no signs of trauma. EYES: PERRL, extraocular movements intact, sclera anicteric, conjunctiva clear. ENT: Ears normal, nares patent, oropharynx clear without exudates, moist mucous membranes. NECK: Trachea midline, full range of motion, supple. LUNGS: Breath sounds equal, clear to auscultation bilaterally, no wheezes, no crackles, no accessory muscle use. HEART: Regular rate and rhythm, S1, S2 without murmur, rub or gallop. ABDOMEN: Soft, nontender, nondistended, normoactive bowel sounds, no guarding, no rebound, no hepatosplenomegaly, no masses. EXTREMITIES: 2+ pulses, warm, well-perfused, no edema. NEUROLOGICAL: Cranial nerves II through XII grossly intact. Normal speech, gait not observed. PSYCH: Normal mood, normal affect. SKIN: Warm, dry, normal turgor, no rashes or lesions noted. LABS Laboratory Results - last 24 hr 08/30/19 08/30/19 06:30 06:30 WBC 6.3 RBC 4.60 Hgb 13.9 Hct 40.5 MCV 88.0 MCH 30.1 MCHC 34.2 RDW 13.6 Plt Count 249 MPV 8.6 Absolute Neuts (auto) 2.8 Neutrophils % 45.0 Lymphocytes % 47.5 H Monocytes % 6.4 Eosinophils % 0.5 Basophils % 0.6 Nucleated RBC % 0 Sodium 140 Potassium 4.2 Chloride 106 Carbon Dioxide 25 Anion Gap 9 BUN 15.0 Creatinine 0.7 Est GFR (CKD-EPI)AfAm 116.40 Est GFR (CKD-EPI)NonAf 100.43 Random Glucose 91 Calcium 8.2 L Phosphorus 3.7 Magnesium 2.0 Total Bilirubin 0.4 AST 9 L ALT 11 L Alkaline Phosphatase 69 Total Protein 6.2 L Albumin 3.2 L HOSPITAL COURSE: Date of Admission:08/27/19 Date of Discharge: 08/30/19 Minutes to complete discharge: 40 Discharge Summary Problems reviewed: Yes Reason For Visit: IMPAIRED PROPRIOCEPTION CVA Current Active Problems Cerebrovascular accident (CVA) (Chronic) Condition: Good - Instructions Diet, Activity, Other Instructions: You were admitted to the Hospital because of a right arm weakness. While you were in the hospital, we evaluated you with lab work, blood work, imaging including a brain MRI which showed lack of blood flow to the left side of your brain. We found that your symptoms were likely caused by a blockage of your left internal carotid artery which caused an injury to your brain. You were evaluated by specialists during your hospital course. including a vascular surgeon, who recommends to give your brain time to heal before proceeding with surgical intervention. You were treated with medications and your symptoms improved. You will need to follow up with vascular surgery and neurology for further treatment. YOUR MEDICATION: Please START taking atorvistatin 40mg daily by mouth Please START taking Aspirin 81mg daily by mouth Please START taking Plavix 75mg daily by mouth Please continue your home medications as prescribed FOLLOW UP: Please follow up with Dr. Tate 1 week after discharge for further evaluation and intervention as planned. Please follow up with neurologist Dr. Odonnell 1 week after discharge for further evaluation Please follow up with your primary care provider Dr. Olguin 1 week after discharge for tight control of your cholesterol levels. ADDITIONAL INSTRUCTIONS: You are being discharged to your home. Please return to the emergency department if you start experiencing worsening pain, numbness or tingling in your hands or fingers, progressive weakness or paralysis in your limbs or face, worsened facial droop, or any worsening or concerning symptoms. Referrals: Dominguez Olguin MD [Primary Care Provider] - 1 Week Gurinder Tate DO [Staff Physician] - Sonido Wells MD [Staff Physician] - 1 Week Disposition: HOME - Home Medications Comprehensive Discharge Medication List: Ambulatory Orders Atenolol [Tenormin -] 50 mg PO DAILY 10/14/14 Divalproex [Depakote -] 1,000 mg PO BID 10/14/14 Zolpidem Tartrate [Ambien] 10 mg PO HS 01/02/16 Levothyroxine [Synthroid -] 75 mcg PO DAILY 07/16/17 Mirtazapine [Remeron -] 30 mg PO DAILY 07/16/17 Carisoprodol [Soma] 350 mg PO Q6H PRN 02/25/18 Lacosamide [Vimpat] 200 mg PO BID 02/26/18 Hydrocodone-Acetamin 7.5-325 1 tab PO BID 08/27/19 Albuterol Sulfate Inhaler - [Ventolin HFA Inhaler -] 1 - 2 inh PO Q4H PRN 08/30/19 Aspirin [ASA -] 81 mg PO DAILY #30 tab.chew 08/30/19 Atorvastatin Ca [Lipitor] 80 mg PO HS #30 tab 08/30/19 Clopidogrel Bisulfate [Plavix -] 75 mg PO DAILY #30 tablet 08/30/19 ATTENDING PHYSICIAN STATEMENT I saw and evaluated the patient. I reviewed the resident's note and discussed the case with the resident. I agree with the resident's findings and plan as documented. SUBJECTIVE: OBJECTIVE: ASSESSMENT AND PLAN:
== END 2019-08-30 16:58 | disposition home or self-care (01) | DRG 45 ==
LOC: JER 13:02 → JERBED 16:01 → J4S 20:36
PROVIDERS: ADMIT Internal Medicine; ATTEND Internal Medicine
DX: I63.232 Cerebral infarction due to unspecified occlusion or stenosis of left carotid arteries (principal); R29.704 NIHSS score 4; G40.909 Epilepsy, unspecified, not intractable, without status epilepticus; J44.9 Chronic obstructive pulmonary disease, unspecified; I10 Essential (primary) hypertension; E78.5 Hyperlipidemia, unspecified; N20.0 Calculus of kidney; N28.1 Cyst of kidney, acquired; K86.2 Cyst of pancreas; E03.9 Hypothyroidism, unspecified; F17.210 Nicotine dependence, cigarettes, uncomplicated; I69.393 Ataxia following cerebral infarction; F32.9 Major depressive disorder, single episode, unspecified; G93.89 Other specified disorders of brain; I25.10 Atherosclerotic heart disease of native coronary artery without angina pectoris; I69.354 Hemiplegia and hemiparesis following cerebral infarction affecting left non-dominant side; R00.1 Bradycardia, unspecified; G43.909 Migraine, unspecified, not intractable, without status migrainosus; M54.5 Low back pain; J32.9 Chronic sinusitis, unspecified; L91.8 Other hypertrophic disorders of the skin; G89.0 Central pain syndrome
CPT/HCPCS: 36415; 70496-TC; 70498-TC; 80048; 80053; 80061; 80164; 81003; 82962; 83036; 83721; 83735; 84100; 84443; 85025; 85610; 85730; 93005; 93010; 97116-GP; 97161-GP; 99285-25; U0003

== ENCOUNTER 2020-09-19 04:39 | Inpatient (IN) | payer OTHER ==
[2020-09-14 13:09] VITALS: BMI 24.8
[2020-09-19] MEDS ORDERED: LIDOCAINE HCL 2% JELLY (5 ML/TUBE) ONE (12:37)
[2020-09-19] MEDS ORDERED: ceFAZolin SODIUM 1 GM VIAL IVPB ONE (12:55)
[2020-09-19] MEDS ORDERED: ACETAMINOPHEN INJECTION 100 ML IVPB ONE (12:57)
[2020-09-19] MEDS ORDERED: LIDOCAINE HCL/PF 2% SDV 5ML VIAL ONE (13:11)
[2020-09-19] MEDS ORDERED: GENTAMICIN SO4 80 MG/2 ML VIAL ONE ×2 (14:05→14:08)
[2020-09-19] MEDS ORDERED: GENTAMICIN SO4 80 MG/2 ML VIAL IVPB ONE (14:13)
[2020-09-19] MEDS ORDERED: oxyCODONE HCL 5 MG TABLET PO PRN (14:40)
[2020-09-19] MEDS ORDERED: ACETAMINOPHEN 325 MG TABLET (FP) PO PRN (14:40)
[2020-09-19] MEDS ORDERED: FUROSEMIDE 40 MG/4 ML INJECTABLE VIAL ONE (15:04)
[2020-09-19] MEDS ORDERED: FUROSEMIDE 40 MG/4 ML INJECTABLE VIAL IVPUSH ONE (15:09)
[2020-09-19] MEDS ORDERED: HYDROmorphone HCl 2 MG/ML VIAL ONE (15:25)
[2020-09-19] MEDS ORDERED: CEFTRIAXONE 1 GM in DEXTROSE 5%-WATER - 50 ML IVPB ONE (16:13)
[2020-09-19] MEDS ORDERED: DIVALPROEX SODIUM 500 MG TABLET E.C. PO ONE (16:18)
[2020-09-19] MEDS ORDERED: ZOLPIDEM TARTRATE 5 MG TABLET PO PRN (16:18)
[2020-09-19 16:59] LABS: BASO % 0.2 % (0-2.0); EOS % 0.1 % (0-4.5); HEMATOCRIT 40.8 % (35.4-49); HEMOGLOBIN 13.8 GM/dL (11.7-16.9); LYMPH % 13.9 % (8-40); MCHC 33.8 g/dl (32.0-35.9); MEAN CELL VOLUME 88.7 fl (80-96); MEAN PLT VOLUME 8.9 fl (7.5-11.1); MONO % 4.3 % (3.8-10.2); NEUT % 81.5 % (42.8-82.8); PLATELET COUNT 228 10^3/uL (134-434); RDW 14.5 % (11.9-15.9); WHITE BLOOD COUNT 11.1 K/mm3 (4.0-10.0)
[2020-09-19 17:05] LABS: CALCIUM 7.4 mg/dL (8.5-10.1)
[2020-09-19 17:06] LABS: BLOOD UREA NITROGEN 16.5 mg/dL (7-18)
[2020-09-19 17:09] LABS: CREATININE 0.8 mg/dL (0.55-1.3)
[2020-09-19] MEDS ORDERED: HYDROmorphone HCl 2 MG/ML VIAL IVPUSH ONE (17:24)
[2020-09-19] MEDS ORDERED: cefTRIAXone SODIUM 1 GM VIAL ONE (17:37)
[2020-09-19] MEDS ORDERED: DEXTROSE 5%-WATER - 50 ML IVPB ONE (17:38)
[2020-09-19] MEDS: D5-1/2NS+10 MEQ KCL - 10 MEQ/1,000 ML INFUS.BAG IV SCH (17:40)
[2020-09-19] MEDS: HYDROmorphone HCl 2 MG/ML VIAL IVPB PRN (17:56)
[2020-09-19] MEDS: ACETAMINOPHEN 325 MG TABLET (FP) PO PRN (21:26)
[2020-09-19] MEDS: oxyCODONE HCL 5 MG TABLET PO PRN (21:26)
[2020-09-19] MEDS: DOCUSATE SODIUM 100 MG CAPSULE (FP) PO SCH (21:31)
[2020-09-20] MEDS: HYDROmorphone HCl 2 MG/ML VIAL IVPB PRN ×2 (00:33→06:05)
[2020-09-20] MEDS: D5-1/2NS+10 MEQ KCL - 10 MEQ/1,000 ML INFUS.BAG IV SCH ×2 (05:23→16:18)
[2020-09-20] MEDS: LEVOTHYROXINE NA 75 MCG TABLET (FP) PO SCH (06:05)
[2020-09-20] MEDS: ATENOLOL 50 MG TABLET (FP) PO SCH (09:40)
[2020-09-20] MEDS: oxyCODONE HCL 5 MG TABLET PO PRN ×2 (09:40→16:31)
[2020-09-20] MEDS: ACETAMINOPHEN 325 MG TABLET (FP) PO PRN ×3 (09:41→22:02)
[2020-09-20] MEDS ORDERED: ALBUTEROL SO4 HFA INHALER IH PRN (14:42)
[2020-09-20] MEDS: METHYL SALICYLATE/MENTHOL OINT 30 GM TUBE TP SCH (19:13)
[2020-09-20] MEDS ORDERED: ATORVASTATIN CA 80 MG TABLET (FP) PO SCH (22:00)
[2020-09-20] MEDS ORDERED: HYDROCODONE ACETAMIN PO SCH (22:00)
[2020-09-20] MEDS ORDERED: PATIENT'S OWN MEDICATION (NON-FORMULARY) (Zolpidem Tartrate [Ambien] 10 MG Tablet) PO SCH (22:00)
[2020-09-20] MEDS: DOCUSATE SODIUM 100 MG CAPSULE (FP) PO SCH (22:02)
[2020-09-21] MEDS: D5-1/2NS+10 MEQ KCL - 10 MEQ/1,000 ML INFUS.BAG IV SCH (01:57)
[2020-09-21] MEDS: LEVOTHYROXINE NA 75 MCG TABLET (FP) PO SCH (06:01)
[2020-09-21] MEDS: ATENOLOL 50 MG TABLET (FP) PO SCH (09:25)
[2020-09-21 09:31] LABS: BASO % 0.5 % (0-2.0); EOS % 0.4 % (0-4.5); HEMATOCRIT 39.9 % (35.4-49); HEMOGLOBIN 13.8 GM/dL (11.7-16.9); LYMPH % 12.7 % (8-40); MCHC 34.5 g/dl (32.0-35.9); MEAN CELL VOLUME 89.8 fl (80-96); MEAN PLT VOLUME 8.9 fl (7.5-11.1); MONO % 7.4 % (3.8-10.2); PLATELET COUNT 213 10^3/uL (134-434); RBC 4.44 M/mm3 (4.00-5.60); RDW 14.6 % (11.9-15.9); WHITE BLOOD COUNT 8.6 K/mm3 (4.0-10.0)
[2020-09-21 09:52] LABS: CHLORIDE 105 mmol/L (98-107); SODIUM 138 mmol/L (136-145)
[2020-09-21] MEDS: DIVALPROEX SODIUM 500 MG TABLET E.C. PO SCH (10:00)
[2020-09-21] MEDS ORDERED: ASPIRIN 81 MG CHEWABLE TABLETS PO SCH (10:00)
[2020-09-21] MEDS ORDERED: LEVOTHYROXINE NA 75 MCG TABLET (FP) PO SCH (10:00)
[2020-09-21] MEDS: MIRTAZAPINE 15 MG TABLET (FP) PO SCH (10:00)
[2020-09-21] MEDS ORDERED: CLOPIDOGREL BISULFATE 75 MG TABLET (FP) PO SCH (10:00)
[2020-09-21 10:05] LABS: BLOOD UREA NITROGEN 6.4 mg/dL (7-18)
[2020-09-21 10:07] LABS: ALBUMIN 3.3 g/dl (3.4-5.0); CALCIUM 7.8 mg/dL (8.5-10.1)
[2020-09-21 10:08] LABS: ANION GAP 7 MMOL/L (8-16); CO2 26 mmol/L (21-32); GLUCOSE,RANDOM 170 mg/dL (74-106); MAGNESIUM 1.9 mg/dL (1.8-2.4)
[2020-09-21 10:11] LABS: CREATININE 0.9 mg/dL (0.55-1.3); SGOT/AST 11 U/L (15-37); SGPT/ALT 19 U/L (13-61)
[2020-09-21 10:12] LABS: BILIRUBIN,TOTAL 0.4 mg/dL (0.2-1); PHOSPHOROUS 2.2 mg/dL (2.5-4.9); TOT PROT 6.3 g/dl (6.4-8.2)
[2020-09-21 10:13] LABS: ALK PHOS 62 U/L (45-117)
[2020-09-21] MEDS: METHYL SALICYLATE/MENTHOL OINT 30 GM TUBE TP SCH (10:42)
[2020-09-21] MEDS: D5-NS + 20 MEQ KCL - 20 MEQ/1,000 ML INFUS.BAG IV SCH ×2 (11:01→23:56)
[2020-09-21] MEDS: HYDROmorphone HCl 2 MG/ML VIAL IVPB PRN ×2 (11:01→20:04)
[2020-09-21 11:12] LABS: HEMATOCRIT 40.1 % (35.4-49); HEMOGLOBIN 13.7 GM/dL (11.7-16.9); MCH 30.2 pg (25.7-33.7); MCHC 34.2 g/dl (32.0-35.9); MEAN CELL VOLUME 88.4 fl (80-96); MEAN PLT VOLUME 9.1 fl (7.5-11.1); RBC 4.53 M/mm3 (4.00-5.60); RDW 14.6 % (11.9-15.9)
[2020-09-21 11:13] LABS: WHITE BLOOD COUNT 13.7 K/mm3 (4.0-10.0)
[2020-09-21 11:14] LABS: PLATELET COUNT 183 10^3/uL (134-434)
[2020-09-21 11:34] LABS: ALBUMIN 3.2 g/dl (3.4-5.0); BLOOD UREA NITROGEN 6.6 mg/dL (7-18)
[2020-09-21 11:37] LABS: CREATININE 0.7 mg/dL (0.55-1.3)
[2020-09-21 11:39] LABS: BILIRUBIN,TOTAL 0.6 mg/dL (0.2-1); TOT PROT 6.4 g/dl (6.4-8.2)
[2020-09-21 12:06] LABS: ANISOCYTOSIS 0; MACROCYTOSIS 0; PLATELET ESTIMATE NORMAL
[2020-09-21] MEDS ORDERED: PIPERACILLIN/TAZOBACTAM 3.375 GM VIAL IVPB ONE ×2 (12:10→17:01)
[2020-09-21] MEDS ORDERED: DEXTROSE 5%-WATER - 50 ML IVPB ONE ×2 (12:10→17:02)
[2020-09-21] MEDS: PIPERACILLIN/TAZOB 3.375 GM 3.375 GM in DEXTROSE 5%-WATER - 50 ML IVPB SCH ×2 (12:15→17:05)
[2020-09-21] MEDS ORDERED: VANCOMYCIN 1 GM in D5W (PRE-DOCKED) 1,000 MG/250 ML IVPB ONE (12:15)
[2020-09-21] MEDS ORDERED: ACETAMINOPHEN INJECTION 100 ML IVPB ONE (17:02)
[2020-09-21] MEDS ORDERED: ACETAMINOPHEN 1000 MG/100 ML VIAL (NON FORMULARY) IVPB PRN (17:30)
[2020-09-21] MEDS: DOCUSATE SODIUM 100 MG CAPSULE (FP) PO SCH (21:51)
[2020-09-21] MEDS: ATORVASTATIN CA 40 MG TABLET (FP) PO SCH (21:51)
[2020-09-22] MEDS ORDERED: PIPERACILLIN/TAZOBACTAM 3.375 GM VIAL IVPB ONE ×3 (00:51→17:15)
[2020-09-22] MEDS ORDERED: DEXTROSE 5%-WATER - 50 ML IVPB ONE ×3 (00:52→17:15)
[2020-09-22] MEDS: PIPERACILLIN/TAZOB 3.375 GM 3.375 GM in DEXTROSE 5%-WATER - 50 ML IVPB SCH ×3 (01:10→17:17)
[2020-09-22] MEDS: HYDROmorphone HCl 2 MG/ML VIAL IVPB PRN ×2 (01:20→12:28)
[2020-09-22] MEDS: LEVOTHYROXINE NA 75 MCG TABLET (FP) PO SCH (08:00)
[2020-09-22] MEDS: ACETAMINOPHEN 325 MG TABLET (FP) PO PRN (08:06)
[2020-09-22] MEDS: oxyCODONE HCL 5 MG TABLET PO PRN ×2 (08:07→21:14)
[2020-09-22] MEDS: ATENOLOL 50 MG TABLET (FP) PO SCH (09:33)
[2020-09-22] MEDS: MIRTAZAPINE 15 MG TABLET (FP) PO SCH (09:34)
[2020-09-22] MEDS ORDERED: PT OWN MED DRAWER 7, Y5N ONE (09:35)
[2020-09-22] MEDS: DIVALPROEX SODIUM 500 MG TABLET E.C. PO SCH (09:37)
[2020-09-22] MEDS: METHYL SALICYLATE/MENTHOL OINT 30 GM TUBE TP SCH (09:40)
[2020-09-22 10:49] LABS: HEMATOCRIT 37.4 % (35.4-49); HEMOGLOBIN 12.8 GM/dL (11.7-16.9); MCH 30.6 pg (25.7-33.7); MCHC 34.2 g/dl (32.0-35.9); MEAN CELL VOLUME 89.4 fl (80-96); MEAN PLT VOLUME 8.9 fl (7.5-11.1); PLATELET COUNT 208 10^3/uL (134-434); RBC 4.18 M/mm3 (4.00-5.60); RDW 14.3 % (11.9-15.9); WHITE BLOOD COUNT 5.5 K/mm3 (4.0-10.0)
[2020-09-22 11:24] LABS: ALBUMIN 2.8 g/dl (3.4-5.0); CALCIUM 7.8 mg/dL (8.5-10.1); MAGNESIUM 2.1 mg/dL (1.8-2.4)
[2020-09-22 11:27] LABS: CREATININE 0.8 mg/dL (0.55-1.3); PHOSPHOROUS 2.8 mg/dL (2.5-4.9)
[2020-09-22 11:29] LABS: BILIRUBIN,TOTAL 0.5 mg/dL (0.2-1)
[2020-09-22] MEDS: D5-NS + 20 MEQ KCL - 20 MEQ/1,000 ML INFUS.BAG IV SCH (12:27)
[2020-09-22] MEDS: POLYETHYLENE GLYCOL (HEALTHYLAX) 3350 17 GM PACKET PO SCH (14:23)
[2020-09-22] MEDS: DOCUSATE SODIUM 100 MG CAPSULE (FP) PO SCH (21:14)
[2020-09-22] MEDS: ATORVASTATIN CA 40 MG TABLET (FP) PO SCH (21:14)
[2020-09-23] MEDS: D5-NS + 20 MEQ KCL - 20 MEQ/1,000 ML INFUS.BAG IV SCH ×3 (00:20→17:10)
[2020-09-23] MEDS: PIPERACILLIN/TAZOB 3.375 GM 3.375 GM in DEXTROSE 5%-WATER - 50 ML IVPB SCH ×3 (02:05→17:12)
[2020-09-23] MEDS ORDERED: DEXTROSE 5%-WATER - 50 ML IVPB ONE ×3 (04:03→16:35)
[2020-09-23] MEDS ORDERED: PIPERACILLIN/TAZOBACTAM 3.375 GM VIAL IVPB ONE ×3 (04:03→16:35)
[2020-09-23] MEDS: HYDROmorphone HCl 2 MG/ML VIAL IVPB PRN ×3 (04:11→18:25)
[2020-09-23] MEDS: LEVOTHYROXINE NA 75 MCG TABLET (FP) PO SCH (06:10)
[2020-09-23 07:34] LABS: EOS % 5.6 % (0-4.5); HEMATOCRIT 37.9 % (35.4-49); LYMPH % 24.2 % (8-40); MCH 30.2 pg (25.7-33.7); MCHC 34.2 g/dl (32.0-35.9); MEAN CELL VOLUME 88.3 fl (80-96); MEAN PLT VOLUME 8.3 fl (7.5-11.1); MONO % 9.7 % (3.8-10.2); NEUT % 59.5 % (42.8-82.8); PLATELET COUNT 218 10^3/uL (134-434); RBC 4.29 M/mm3 (4.00-5.60); RDW 14.7 % (11.9-15.9); WHITE BLOOD COUNT 5.1 K/mm3 (4.0-10.0)
[2020-09-23 07:59] LABS: CALCIUM 7.4 mg/dL (8.5-10.1)
[2020-09-23 08:00] LABS: ALBUMIN 2.7 g/dl (3.4-5.0); BLOOD UREA NITROGEN 7.3 mg/dL (7-18); MAGNESIUM 2.1 mg/dL (1.8-2.4)
[2020-09-23 08:03] LABS: CREATININE 0.7 mg/dL (0.55-1.3); PHOSPHOROUS 3.6 mg/dL (2.5-4.9)
[2020-09-23 08:04] LABS: BILIRUBIN,TOTAL 0.5 mg/dL (0.2-1); TOT PROT 5.6 g/dl (6.4-8.2)
[2020-09-23] MEDS ORDERED: PT OWN MED DRAWER 7, Y5N ONE (08:53)
[2020-09-23] MEDS: POLYETHYLENE GLYCOL (HEALTHYLAX) 3350 17 GM PACKET PO SCH (08:59)
[2020-09-23] MEDS: ATENOLOL 50 MG TABLET (FP) PO SCH (08:59)
[2020-09-23] MEDS: MIRTAZAPINE 15 MG TABLET (FP) PO SCH (08:59)
[2020-09-23] MEDS: DIVALPROEX SODIUM 500 MG TABLET E.C. PO SCH (08:59)
[2020-09-23] MEDS: METHYL SALICYLATE/MENTHOL OINT 30 GM TUBE TP SCH (09:00)
[2020-09-23] MEDS ORDERED: ALBUTEROL SO4 HFA INHALER IH PRN (15:58)
[2020-09-23] MEDS: ATORVASTATIN CA 40 MG TABLET (FP) PO SCH (21:58)
[2020-09-23] MEDS: ACETAMINOPHEN 325 MG TABLET (FP) PO PRN (21:58)
[2020-09-23] MEDS: DOCUSATE SODIUM 100 MG CAPSULE (FP) PO SCH (21:58)
[2020-09-24] MEDS: HYDROmorphone HCl 2 MG/ML VIAL IVPB PRN ×4 (00:14→21:23)
[2020-09-24] MEDS ORDERED: DEXTROSE 5%-WATER - 50 ML IVPB ONE ×3 (02:15→17:20)
[2020-09-24] MEDS ORDERED: PIPERACILLIN/TAZOBACTAM 3.375 GM VIAL IVPB ONE ×3 (02:15→17:19)
[2020-09-24] MEDS: PIPERACILLIN/TAZOB 3.375 GM 3.375 GM in DEXTROSE 5%-WATER - 50 ML IVPB SCH ×3 (02:19→17:22)
[2020-09-24] MEDS: D5-NS + 20 MEQ KCL - 20 MEQ/1,000 ML INFUS.BAG IV SCH ×4 (02:22→23:44)
[2020-09-24] MEDS: LEVOTHYROXINE NA 75 MCG TABLET (FP) PO SCH (06:11)
[2020-09-24] MEDS: MIRTAZAPINE 15 MG TABLET (FP) PO SCH (09:32)
[2020-09-24] MEDS: POLYETHYLENE GLYCOL (HEALTHYLAX) 3350 17 GM PACKET PO SCH (09:32)
[2020-09-24] MEDS: DIVALPROEX SODIUM 500 MG TABLET E.C. PO SCH (09:32)
[2020-09-24] MEDS: ATENOLOL 50 MG TABLET (FP) PO SCH (09:33)
[2020-09-24] MEDS: METHYL SALICYLATE/MENTHOL OINT 30 GM TUBE TP SCH (10:17)
[2020-09-24] MEDS: ATORVASTATIN CA 40 MG TABLET (FP) PO SCH (21:10)
[2020-09-24] MEDS: DOCUSATE SODIUM 100 MG CAPSULE (FP) PO SCH (21:10)
[2020-09-25] MEDS ORDERED: DEXTROSE 5%-WATER - 50 ML IVPB ONE ×3 (01:36→17:37)
[2020-09-25] MEDS ORDERED: PIPERACILLIN/TAZOBACTAM 3.375 GM VIAL IVPB ONE ×3 (01:36→17:37)
[2020-09-25] MEDS: HYDROmorphone HCl 2 MG/ML VIAL IVPB PRN ×4 (01:38→21:22)
[2020-09-25] MEDS: PIPERACILLIN/TAZOB 3.375 GM 3.375 GM in DEXTROSE 5%-WATER - 50 ML IVPB SCH ×5 (02:05→17:42)
[2020-09-25] MEDS: LEVOTHYROXINE NA 75 MCG TABLET (FP) PO SCH (06:22)
[2020-09-25 09:28] LABS: BASO % 0.7 % (0-2.0); EOS % 3.3 % (0-4.5); HEMATOCRIT 36.2 % (35.4-49); HEMOGLOBIN 12.2 GM/dL (11.7-16.9); LYMPH % 18.3 % (8-40); MCH 29.9 pg (25.7-33.7); MCHC 33.8 g/dl (32.0-35.9); MEAN CELL VOLUME 88.5 fl (80-96); MEAN PLT VOLUME 8.1 fl (7.5-11.1); MONO % 9.2 % (3.8-10.2); NEUT % 68.5 % (42.8-82.8); PLATELET COUNT 240 10^3/uL (134-434); RBC 4.09 M/mm3 (4.00-5.60); WHITE BLOOD COUNT 7.2 K/mm3 (4.0-10.0)
[2020-09-25 10:02] LABS: BLOOD UREA NITROGEN 6.3 mg/dL (7-18); CALCIUM 7.4 mg/dL (8.5-10.1)
[2020-09-25 10:04] LABS: ALBUMIN 2.8 g/dl (3.4-5.0); MAGNESIUM 1.9 mg/dL (1.8-2.4)
[2020-09-25 10:06] LABS: CREATININE 0.8 mg/dL (0.55-1.3); PHOSPHOROUS 3.3 mg/dL (2.5-4.9)
[2020-09-25 10:09] LABS: BILIRUBIN,TOTAL 0.3 mg/dL (0.2-1); TOT PROT 5.9 g/dl (6.4-8.2)
[2020-09-25] MEDS: DIVALPROEX SODIUM 500 MG TABLET E.C. PO SCH (10:47)
[2020-09-25] MEDS: MIRTAZAPINE 15 MG TABLET (FP) PO SCH (10:48)
[2020-09-25] MEDS: POLYETHYLENE GLYCOL (HEALTHYLAX) 3350 17 GM PACKET PO SCH (10:48)
[2020-09-25] MEDS: ATENOLOL 50 MG TABLET (FP) PO SCH (10:48)
[2020-09-25] MEDS: METHYL SALICYLATE/MENTHOL OINT 30 GM TUBE TP SCH (12:40)
[2020-09-25] MEDS: D5-NS + 20 MEQ KCL - 20 MEQ/1,000 ML INFUS.BAG IV SCH (16:22)
[2020-09-25] MEDS: ATORVASTATIN CA 40 MG TABLET (FP) PO SCH (21:27)
[2020-09-25] MEDS: DOCUSATE SODIUM 100 MG CAPSULE (FP) PO SCH (21:27)
[2020-09-26] MEDS: D5-NS + 20 MEQ KCL - 20 MEQ/1,000 ML INFUS.BAG IV SCH ×3 (01:06→16:47)
[2020-09-26] MEDS ORDERED: DEXTROSE 5%-WATER - 50 ML IVPB ONE ×2 (01:08→10:04)
[2020-09-26] MEDS ORDERED: PIPERACILLIN/TAZOBACTAM 3.375 GM VIAL IVPB ONE ×2 (01:08→10:04)
[2020-09-26] MEDS: PIPERACILLIN/TAZOB 3.375 GM 3.375 GM in DEXTROSE 5%-WATER - 50 ML IVPB SCH ×2 (01:10→10:10)
[2020-09-26] MEDS: HYDROmorphone HCl 2 MG/ML VIAL IVPB PRN ×5 (03:27→21:08)
[2020-09-26] MEDS: LEVOTHYROXINE NA 75 MCG TABLET (FP) PO SCH (06:14)
[2020-09-26 08:57] LABS: BASO % 0.8 % (0-2.0); EOS % 2.9 % (0-4.5); HEMATOCRIT 35.1 % (35.4-49); HEMOGLOBIN 12.1 GM/dL (11.7-16.9); LYMPH % 24.8 % (8-40); MCH 30.1 pg (25.7-33.7); MCHC 34.4 g/dl (32.0-35.9); MEAN CELL VOLUME 87.7 fl (80-96); MEAN PLT VOLUME 8.1 fl (7.5-11.1); MONO % 10.4 % (3.8-10.2); NEUT % 61.1 % (42.8-82.8); PLATELET COUNT 263 10^3/uL (134-434); RDW 14.3 % (11.9-15.9); WHITE BLOOD COUNT 7.6 K/mm3 (4.0-10.0)
[2020-09-26 09:19] LABS: ALBUMIN 2.8 g/dl (3.4-5.0); CALCIUM 7.6 mg/dL (8.5-10.1)
[2020-09-26 09:21] LABS: CREATININE 0.8 mg/dL (0.55-1.3)
[2020-09-26 09:23] LABS: BILIRUBIN,TOTAL 0.3 mg/dL (0.2-1); PHOSPHOROUS 3.6 mg/dL (2.5-4.9)
[2020-09-26] MEDS ORDERED: PT OWN MED DRAWER 7, Y5N ONE (10:04)
[2020-09-26] MEDS: DIVALPROEX SODIUM 500 MG TABLET E.C. PO SCH (10:08)
[2020-09-26] MEDS: ATENOLOL 50 MG TABLET (FP) PO SCH (10:09)
[2020-09-26] MEDS: POLYETHYLENE GLYCOL (HEALTHYLAX) 3350 17 GM PACKET PO SCH (10:09)
[2020-09-26] MEDS: MIRTAZAPINE 15 MG TABLET (FP) PO SCH (10:09)
[2020-09-26] MEDS: METHYL SALICYLATE/MENTHOL OINT 30 GM TUBE TP SCH ×2 (10:11→10:17)
[2020-09-26] MEDS ORDERED: INSULIN (NOVOLOG) ASPART 100 UNITS/ML 10ML VIAL ONE (11:08)
[2020-09-26 12:03] LABS: EPI CELLS 16 /uL (0-25.1); HYALINE CASTS 5 /uL (0-3.1); PH,URINE 6.5 (5.0-8.0); URINE APPEARANCE CLEAR; URINE BACTERIA 15 /uL (0-1359); URINE BILIRUBIN NEGATIVE (NEGATIVE); URINE COLOR YELLOW; URINE GLUCOSE (UA) NEGATIVE (NEGATIVE); URINE KETONE NEGATIVE (NEGATIVE); URINE LEUK ESTERASE 2+ (NEGATIVE); URINE NITRITE NEGATIVE (NEGATIVE); URINE PROTEIN 1+ (NEGATIVE); URINE RBC 608 /uL (0-23.9); URINE WBC 389 /uL (0-25.8)
[2020-09-26] MEDS: AMOX TR/POT CLAV 875MG/125MG TABLETS (FP) PO SCH (17:48)
[2020-09-26] MEDS: DOCUSATE SODIUM 100 MG CAPSULE (FP) PO SCH (21:01)
[2020-09-26] MEDS: ATORVASTATIN CA 40 MG TABLET (FP) PO SCH (21:01)
[2020-09-27] MEDS: D5-NS + 20 MEQ KCL - 20 MEQ/1,000 ML INFUS.BAG IV SCH ×2 (01:37→16:52)
[2020-09-27] MEDS: HYDROmorphone HCl 2 MG/ML VIAL IVPB PRN ×2 (02:03→20:22)
[2020-09-27] MEDS: LEVOTHYROXINE NA 75 MCG TABLET (FP) PO SCH (06:09)
[2020-09-27] MEDS ORDERED: ACETAMINOPHEN 1000 MG/100 ML VIAL (NON FORMULARY) IVPB ONE (07:04)
[2020-09-27 08:56] LABS: BASO % 0.6 % (0-2.0); EOS % 2.6 % (0-4.5); HEMATOCRIT 37.5 % (35.4-49); HEMOGLOBIN 12.8 GM/dL (11.7-16.9); LYMPH % 23.1 % (8-40); MCH 30.5 pg (25.7-33.7); MCHC 34.1 g/dl (32.0-35.9); MEAN CELL VOLUME 89.5 fl (80-96); MEAN PLT VOLUME 8.1 fl (7.5-11.1); NEUT % 62.7 % (42.8-82.8); PLATELET COUNT 321 10^3/uL (134-434); RBC 4.19 M/mm3 (4.00-5.60); RDW 14.4 % (11.9-15.9); WHITE BLOOD COUNT 7.7 K/mm3 (4.0-10.0)
[2020-09-27 09:20] LABS: CALCIUM 8.3 mg/dL (8.5-10.1)
[2020-09-27 09:21] LABS: BLOOD UREA NITROGEN 8.3 mg/dL (7-18)
[2020-09-27 09:25] LABS: CREATININE 0.8 mg/dL (0.55-1.3)
[2020-09-27] MEDS: MIRTAZAPINE 15 MG TABLET (FP) PO SCH (09:40)
[2020-09-27] MEDS: DIVALPROEX SODIUM 500 MG TABLET E.C. PO SCH (09:40)
[2020-09-27] MEDS: AMOX TR/POT CLAV 875MG/125MG TABLETS (FP) PO SCH ×2 (09:40→16:55)
[2020-09-27] MEDS: POLYETHYLENE GLYCOL (HEALTHYLAX) 3350 17 GM PACKET PO SCH (09:41)
[2020-09-27] MEDS: ATENOLOL 50 MG TABLET (FP) PO SCH (09:41)
[2020-09-27] MEDS: METHYL SALICYLATE/MENTHOL OINT 30 GM TUBE TP SCH (09:41)
[2020-09-27] MEDS ORDERED: TAMSULOSIN HCL 0.4 MG CAP PO ONE (13:48)
[2020-09-27] MEDS: DOCUSATE SODIUM 100 MG CAPSULE (FP) PO SCH (21:12)
[2020-09-27] MEDS: ATORVASTATIN CA 40 MG TABLET (FP) PO SCH (21:12)
[2020-09-28] MEDS: HYDROmorphone HCl 2 MG/ML VIAL IVPB PRN ×5 (01:22→21:30)
[2020-09-28] MEDS: D5-NS + 20 MEQ KCL - 20 MEQ/1,000 ML INFUS.BAG IV SCH (01:27)
[2020-09-28] MEDS: ACETAMINOPHEN 325 MG TABLET (FP) PO PRN (03:21)
[2020-09-28] MEDS: LEVOTHYROXINE NA 75 MCG TABLET (FP) PO SCH (06:00)
[2020-09-28 07:48] LABS: BASO % 0.7 % (0-2.0); EOS % 2.4 % (0-4.5); HEMATOCRIT 36.7 % (35.4-49); HEMOGLOBIN 12.4 GM/dL (11.7-16.9); LYMPH % 25.4 % (8-40); MCH 30.2 pg (25.7-33.7); MCHC 33.8 g/dl (32.0-35.9); MEAN CELL VOLUME 89.2 fl (80-96); MEAN PLT VOLUME 8.1 fl (7.5-11.1); MONO % 10.8 % (3.8-10.2); NEUT % 60.7 % (42.8-82.8); PLATELET COUNT 330 10^3/uL (134-434); RBC 4.12 M/mm3 (4.00-5.60); RDW 13.9 % (11.9-15.9); WHITE BLOOD COUNT 7.4 K/mm3 (4.0-10.0)
[2020-09-28 08:10] LABS: CALCIUM 7.7 mg/dL (8.5-10.1)
[2020-09-28 08:11] LABS: BLOOD UREA NITROGEN 12.5 mg/dL (7-18)
[2020-09-28 08:12] LABS: ALBUMIN 2.7 g/dl (3.4-5.0)
[2020-09-28 08:14] LABS: CREATININE 0.7 mg/dL (0.55-1.3)
[2020-09-28 08:15] LABS: BILIRUBIN,TOTAL 0.2 mg/dL (0.2-1); TOT PROT 5.9 g/dl (6.4-8.2)
[2020-09-28] MEDS: AMOX TR/POT CLAV 875MG/125MG TABLETS (FP) PO SCH ×2 (09:00→17:57)
[2020-09-28] MEDS: POLYETHYLENE GLYCOL (HEALTHYLAX) 3350 17 GM PACKET PO SCH (09:43)
[2020-09-28] MEDS: ATENOLOL 50 MG TABLET (FP) PO SCH (09:43)
[2020-09-28] MEDS: MIRTAZAPINE 15 MG TABLET (FP) PO SCH (09:43)
[2020-09-28] MEDS: DIVALPROEX SODIUM 500 MG TABLET E.C. PO SCH (09:43)
[2020-09-28] MEDS: METHYL SALICYLATE/MENTHOL OINT 30 GM TUBE TP SCH (09:44)
[2020-09-28] MEDS: ATORVASTATIN CA 40 MG TABLET (FP) PO SCH (21:31)
[2020-09-28] MEDS: DOCUSATE SODIUM 100 MG CAPSULE (FP) PO SCH (21:31)
[2020-09-29] MEDS: HYDROmorphone HCl 2 MG/ML VIAL IVPB PRN ×2 (01:36→05:16)
[2020-09-29] MEDS: LEVOTHYROXINE NA 75 MCG TABLET (FP) PO SCH (06:23)
[2020-09-29 07:07] VITALS: BP 105/58; PULSE 72; TEMP 98.3
[2020-09-29] MEDS: AMOX TR/POT CLAV 875MG/125MG TABLETS (FP) PO SCH (08:44)
[2020-09-29 09:02] LABS: BASO % 0.7 % (0-2.0); EOS % 2.8 % (0-4.5); HEMATOCRIT 37.3 % (35.4-49); HEMOGLOBIN 12.7 GM/dL (11.7-16.9); MCH 30.6 pg (25.7-33.7); MCHC 34.1 g/dl (32.0-35.9); MEAN CELL VOLUME 89.6 fl (80-96); MEAN PLT VOLUME 8.3 fl (7.5-11.1); MONO % 8.4 % (3.8-10.2); NEUT % 61.1 % (42.8-82.8); PLATELET COUNT 371 10^3/uL (134-434); RBC 4.16 M/mm3 (4.00-5.60); RDW 14.2 % (11.9-15.9); WHITE BLOOD COUNT 7.6 K/mm3 (4.0-10.0)
[2020-09-29 09:29] LABS: BLOOD UREA NITROGEN 12.6 mg/dL (7-18)
[2020-09-29 09:30] LABS: CALCIUM 7.9 mg/dL (8.5-10.1)
[2020-09-29 09:33] LABS: CREATININE 0.8 mg/dL (0.55-1.3)
[2020-09-29] MEDS ORDERED: oxyCODONE HCL 5 MG TABLET PO PRN ×2 (09:37→10:26)
[2020-09-29] MEDS ORDERED: PT OWN MED DRAWER 7, Y5N ONE (09:52)
[2020-09-29] MEDS ORDERED: MIRTAZAPINE 15 MG TABLET (FP) PO SCH (09:53)
[2020-09-29] MEDS: ATENOLOL 50 MG TABLET (FP) PO SCH (09:58)
[2020-09-29] MEDS: DIVALPROEX SODIUM 500 MG TABLET E.C. PO SCH (09:58)
[2020-09-29] MEDS: POLYETHYLENE GLYCOL (HEALTHYLAX) 3350 17 GM PACKET PO SCH (09:59)
[2020-09-29] MEDS: METHYL SALICYLATE/MENTHOL OINT 30 GM TUBE TP SCH (09:59)
[2020-09-29] MEDS ORDERED: ACETAMINOPHEN 325 MG TABLET (FP) PO PRN (10:26)
== END 2020-09-29 17:11 | disposition home or self-care (01) | DRG 952 ==
LOC: SUATTDRO 04:39 → JASUSAT 04:39 → JASU-SURG 04:39 → J6S 17:19 → JASUSAT 09-20 16:20 → J6S 09-20 16:21 → JICU 09-21 10:45 → J8W 09-23 16:22
PROVIDERS: ADMIT Internal Medicine; ATTEND Internal Medicine
PROC: 0V508ZZ Destruction of Prostate, Via Natural or Artificial Opening Endoscopic (ICD-10-PCS; principal; 2020-09-19 11:00)
DX: N99.71 Accidental puncture and laceration of a genitourinary system organ or structure during a genitourinary system procedure (principal); N42.31 Prostatic intraepithelial neoplasia; N32.89 Other specified disorders of bladder; I69.351 Hemiplegia and hemiparesis following cerebral infarction affecting right dominant side; J44.9 Chronic obstructive pulmonary disease, unspecified; G47.33 Obstructive sleep apnea (adult) (pediatric); G40.909 Epilepsy, unspecified, not intractable, without status epilepticus; E03.9 Hypothyroidism, unspecified; F32.9 Major depressive disorder, single episode, unspecified; I10 Essential (primary) hypertension; M25.511 Pain in right shoulder; I69.354 Hemiplegia and hemiparesis following cerebral infarction affecting left non-dominant side; K65.9 Peritonitis, unspecified; K66.9 Disorder of peritoneum, unspecified; J98.11 Atelectasis; N28.1 Cyst of kidney, acquired; Y83.8 Other surgical procedures as the cause of abnormal reaction of the patient, or of later complication, without mention of misadventure at the time of the procedure; G58.8 Other specified mononeuropathies
CPT/HCPCS: 36415; 71101-TC-RT-FY; 73030-TC-RT-FY; 74019-TC-FY; 74176-TC; 76000-TC-FY; 76775-TC; 76856-TC; 76870-TC; 80048; 80053; 81003; 82550; 83605; 83735; 84100; 84484; 85025; 85027; 87040; 87086; 88305-TC; 88342-TC; 93005; 93010; 94010; 94760; 97116-GP; 97161-GP; C9803; J0131; U0003; U0005